=== PATIENT | female | born 1965 | race Caucasian/White ===

== ENCOUNTER 2016-11-01 11:24 | Emergency (ER) | payer MEDICARE, MEDICAID ==
--- NOTE | 2016-11-01 12:02 | ER Document Report ---
ED Medical Screen (RME) - General Chief Complaint: Eye Pain Stated Complaint: VISION PROBLEM Mode of Arrival: Ambulatory Information source: Patient Notes: 51-year-old female presents to the emergency department complaining of right- sided headache and associated left lateral decreased vision over the last 2 days. Denies fever, nausea or vomiting, or extremity weakness. I have greeted and performed a rapid initial assessment of this patient. A comprehensive ED assessment and evaluation of the patient, analysis of test results and completion of the medical decision making process will be conducted by additional ED providers. TRAVEL OUTSIDE OF THE [place] IN LAST 30 DAYS: No - Related Data Allergies/Adverse Reactions: exenatide [From Byetta] Allergy (Severe, Verified 11/01/16 11:59) swelling NSAIDS (Non-Steroidal Anti-Inflamma Allergy (Severe, Verified 11/01/16 11:59) Anaphylaxis Past Medical History - Social History Frequency of alcohol use: None Drug Abuse: None - Past Medical History Cardiac Medical History: Reports: Hx Hypercholesterolemia Denies: Hx Coronary Artery Disease, Hx Heart Attack, Hx Hypertension Pulmonary Medical History: Reports: Hx Bronchitis, Hx COPD, Hx Pneumonia Denies: Hx Asthma, Hx Tuberculosis Neurological Medical History: Denies: Hx Cerebrovascular Accident, Hx Seizures Endocrine Medical History: Reports: Hx Diabetes Mellitus Type 2 - IDDM Renal/ Medical History: Denies: Hx Peritoneal Dialysis Malignancy Medical History: Reports: Hx Cervical Cancer GI Medical History: Reports: Hx Gastroesophageal Reflux Disease Musculoskeltal Medical History: Denies Hx Arthritis Psychiatric Medical History: Reports: Hx Anxiety, Hx Depression, Hx Post Traumatic Stress Disorder Past Surgical History: Reports: Hx Section - x2, Hx Hysterectomy, Hx Orthopedic Surgery - BL elbow. 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
--- NOTE | 2016-11-01 12:29 | ER Document Report ---
ED Headache - General Chief Complaint: Eye Pain Stated Complaint: VISION PROBLEM Mode of Arrival: Ambulatory Information source: Patient TRAVEL OUTSIDE OF THE [place] IN LAST 30 DAYS: No - HPI Patient complains to provider of: Headache Patient reports: No: Frequent migraines, Hx chronic headaches, Occasional migraines, Prior TBI Onset: Other - 2 DAYS Onset was: Gradual Timing: Still present Quality of pain: Dull Severity: Moderate Context: denies: CO exposure, Head injury, Insect bite, Meningitis exposure, Tick bite Preceding symptoms: Other - VISUAL SYMPTOMS BEGAN AFTER ONSET OF HEADACHE. denies: Typical of prior aura(s) Associated symptoms: Double/blurred vision - BLURRED LEFT TEMPORAL FIELD, Nausea /vomiting. denies: Confusion, Fever, Neck pain Exacerbated by: Light Similar symptoms previously: No Recently seen / treated by doctor: No - Related Data Allergies/Adverse Reactions: exenatide [From Byetta] Allergy (Severe, Verified 11/01/16 11:59) swelling NSAIDS (Non-Steroidal Anti-Inflamma Allergy (Severe, Verified 11/01/16 11:59) Anaphylaxis Past Medical History - General Information source: Patient - Social History Smoking Status: Current Every Day Smoker Smoking Education Provided: No Frequency of alcohol use: None Drug Abuse: None Family History: DM, Hypertension Patient has suicidal ideation: No Patient has homicidal ideation: No - Past Medical History Cardiac Medical History: Reports: Hx Hypercholesterolemia Denies: Hx Coronary Artery Disease, Hx Heart Attack, Hx Hypertension Pulmonary Medical History: Reports: Hx Bronchitis, Hx COPD, Hx Pneumonia Denies: Hx Asthma, Hx Tuberculosis Neurological Medical History: Denies: Hx Cerebrovascular Accident, Hx Migraine, Hx Seizures Endocrine Medical History: Reports: Hx Diabetes Mellitus Type 2 - IDDM Renal/ Medical History: Denies: Hx Peritoneal Dialysis Malignancy Medical History: Reports: Hx Cervical Cancer GI Medical History: Reports: Hx Gastroesophageal Reflux Disease Musculoskeltal Medical History: Denies Hx Arthritis Psychiatric Medical History: Reports: Hx Anxiety, Hx Depression, Hx Post Traumatic Stress Disorder Past Surgical History: Reports: Hx Section - x2, Hx Hysterectomy, Hx Orthopedic Surgery - BL elbow. - Immunizations Immunizations up to date: No Hx Diphtheria, Pertussis, Tetanus Vaccination: No Hx Pneumococcal Vaccination: 10/11/10 Review of Systems - Review of Systems Constitutional: No symptoms reported EENT: See HPI Cardiovascular: No symptoms reported Respiratory: No symptoms reported Gastrointestinal: See HPI Genitourinary: No symptoms reported Female Genitourinary: No symptoms reported Musculoskeletal: No symptoms reported Skin: No symptoms reported Neurological/Psychological: See HPI Physical Exam - Vital signs Vitals: Temp Pulse Resp BP Pulse Ox 98.5 F 89 17 119/86 H 96 11/01/16 11:53 11/01/16 11:53 11/01/16 11:53 11/01/16 11:53 11/01/16 11:53 Interpretation: Normal. No: Tachycardic, Tachypneic, Febrile - General General appearance: Appears well, Alert In distress: None - HEENT Head: Normocephalic Eyes: Normal Conjunctiva: Normal Cornea: Normal Extraocular movements intact: Yes Eyelashes: Normal Pupils: PERRL Visual acuity- Right eye: 20/50 Visual acuity- Left eye: 20/100 Visual acuity- Both eyes: 20/30 Corrective lenses worn: No Fundascopic: Normal. No: Retinal detachment, Retinal hemorrhage Nerve palsy: No Visual phillips normal: Yes Ears: Normal Nasal: Normal Mouth/Lips: Normal Mucous membranes: Normal Pharynx: Normal Neck: Normal - Respiratory Respiratory status: No respiratory distress - Cardiovascular Rhythm: Regular Heart sounds: Normal auscultation Murmur: No - Extremities General upper extremity: Normal inspection General lower extremity: Normal inspection - Neurological Neuro grossly intact: Yes Cognition: Normal Orientation: AAOx4 Cranial nerves: Other - SEE HPI Cerebellar coordination: Normal Sensory: Normal - Psychological Associated symptoms: Normal affect, Normal mood - Skin Skin Temperature: Warm Skin Moisture: Dry Skin Color: Normal Skin Turgor: Elastic Course - Re-evaluation Re-evalutation: 11/01/16 14:06 Patient reports headache much improved. Results of CT scan discussed. Will proceed with contrasted CT scan. - Vital Signs Vital signs: Temp Pulse Resp BP Pulse Ox 98.5 F 75 18 122/75 97 11/01/16 11:53 11/01/16 18:00 11/01/16 18:00 11/01/16 18:00 11/01/16 18:00 - Laboratory Result Diagrams: 11/01/16 13:08 11/01/16 13:08 Laboratory results interpreted by me: 11/01/16 13:08 Glucose 305 H - EKG Interpretation by Ct EKG shows normal: Sinus rhythm, Brohard, Intervals, QRS Complexes - SMALL INF. Q WAVES, INSIGNIFICANT, ST-T Waves Rate: Normal Rhythm: NSR - Consults DR. AGUIRRE Time consulted: 18:20 Reason for consultation: 11/01/16 18:[address] WHALEY ([facility]) Consulted provider: will see as inpatient Discharge - Discharge Clinical Impression: CVA (cerebrovascular accident) Qualifiers: CVA mechanism: unspecified Qualified Code(s): I63.9 - Cerebral infarction, unspecified Condition: Good Disposition: ADMITTED INPATIENT Admitting Provider: Yasir Unit Admitted: [facility] Referrals: JUAN WHALEY MD [Primary Care Provider] - Follow up as needed
[2016-11-01] MEDS ORDERED: NORMAL SALINE 1000 ML 1,000 ML IV ONE (12:40)
[2016-11-01] MEDS ORDERED: METOCLOPRAMIDE HCL INJ/PF 10 MG/2 ML SDV IV ONE (12:40)
[2016-11-01] MEDS ORDERED: DIPHENHYDRAMINE HCL 50 MG/ML VIAL IV ONE (12:40)
[2016-11-01 13:23] LABS: ABSOLUTE EOSINOPHILS # (AUTO) 0.2 10^3/uL (0.0-0.6); ABSOLUTE LYMPHOCYTES (AUTO) 1.8 10^3/uL (0.5-4.7); ABSOLUTE MONOCYTES (AUTO) 0.5 10^3/uL (0.1-1.4); ABSOLUTE NEUT (AUTO) 6.8 10^3/uL (1.7-8.2); BASOPHILS % (AUTO) 0.2 % (0-2); EOSINOPHILS % (AUTO) 2.3 % (0-6); HEMOGLOBIN 14.7 g/dL (12.0-15.5); HGB HCT DIFFERENCE 1.1; LYMPHOCYTES % (AUTO) 19.1 % (13-45); MEAN CORPUSCULAR HEMOGLOBIN 28.8 pg (27.0-33.4); MEAN CORPUSCULAR HGB CONC 34.1 g/dL (32.0-36.0); MEAN CORPUSCULAR VOLUME 84 fl (80-97); MONOCYTES % (AUTO) 5.7 % (3-13); SEGMENTED NEUTROPHILS % (AUTO) 72.7 % (42-78); WHITE BLOOD COUNT 9.4 10^3/uL (4.0-10.5)
[2016-11-01 13:49] LABS: ALANINE AMINOTRANSFERASE 25 U/L (9-52); ALBUMIN 3.9 g/dL (3.5-5.0); ALKALINE PHOSPHATASE 106 U/L (38-126); ANION GAP 13 (5-19); ASPARTATE AMINO TRANSFERASE 21 U/L (14-36); BILIRUBIN,TOTAL 1.1 mg/dL (0.2-1.3); BLOOD UREA NITROGEN 14 mg/dL (7-20); CALCIUM 9.7 mg/dL (8.4-10.2); CARBON DIOXIDE 23 mmol/L (22-30); CHLORIDE 102 mmol/L (98-107); GLUCOSE 305 mg/dL (75-110); POTASSIUM 4.2 mmol/L (3.6-5.0); SODIUM 137.9 mmol/L (137-145); TOTAL PROTEIN 7.2 g/dL (6.3-8.2)
[2016-11-01] MEDS ORDERED: HYDROCODONE/ACETAMINOPHEN 5-325 MG TABLET PO ONE (15:20)
[2016-11-01] MEDS ORDERED: ASPIRIN 81 MG TABLET, CHEWABLE PO ONE (19:29)
[2016-11-01 19:42] VITALS: BP 119/78
--- NOTE | 2016-11-01 20:35 | EKG REPORT ---
SEVERITY:- BORDERLINE ECG - SINUS RHYTHM BORDERLINE INFERIOR Q WAVES : Confirmed by: Jacob Shine MD 01-Nov-2016 20:34:21
== END 2016-11-01 19:50 | disposition left against medical advice (07) ==
LOC: ER 11:24 → UNDOADMIN 19:07 → EH 19:07 → UNDODISIN 19:50 → ER 19:50
DX: I63.9 Cerebral infarction, unspecified (principal); H53.8 Other visual disturbances; R11.2 Nausea with vomiting, unspecified; E11.9 Type 2 diabetes mellitus without complications; F17.200 Nicotine dependence, unspecified, uncomplicated; Z53.20 Procedure and treatment not carried out because of patient's decision for unspecified reasons; Z87.892 Personal history of anaphylaxis; Z88.8 Allergy status to other drugs, medicaments and biological substances; J44.9 Chronic obstructive pulmonary disease, unspecified; Z85.41 Personal history of malignant neoplasm of cervix uteri
CPT/HCPCS: 93005; 99285; 96361; 96374; 96375; 36415; 85025; 80053; 70553; 70450; 70460; 93010; A9577; A9270 ×2; J1200; J2765; J7030

== ENCOUNTER 2016-11-02 10:10 | Inpatient (IN) | payer MEDICARE, MEDICAID ==
--- NOTE | 2016-11-02 10:21 | ER Document Report ---
ED Medical Screen (RME) - General Chief Complaint: Chest Pain Stated Complaint: CHEST PRESSURE Time seen by provider: 10:19 Mode of Arrival: Ambulatory Information source: Patient Notes: 51-year-old female presents to ED for chest pain chest pain started this morning while laying in and her bed. She was seen yesterday for a headache with a positive CT for possible brain bleed she decided she did not want to stay 1 and to go home she states she got everything situated at home so that if she needs to be admitted she can stay this time. States headache is still just like it was. I have greeted and performed a rapid initial assessment of this patient. A comprehensive ED assessment and evaluation of the patient, analysis of test results and completion of medical decision making process will be conducted by an additional ED providers. TRAVEL OUTSIDE OF THE [place] IN LAST 30 DAYS: No - Related Data Allergies/Adverse Reactions: exenatide [From Byetta] Allergy (Severe, Verified 11/01/16 11:59) swelling NSAIDS (Non-Steroidal Anti-Inflamma Allergy (Severe, Verified 11/01/16 11:59) Anaphylaxis Past Medical History - Past Medical History Cardiac Medical History: Reports: Hx Hypercholesterolemia Denies: Hx Coronary Artery Disease, Hx Heart Attack, Hx Hypertension Pulmonary Medical History: Reports: Hx Bronchitis, Hx COPD, Hx Pneumonia Denies: Hx Asthma, Hx Tuberculosis Neurological Medical History: Denies: Hx Cerebrovascular Accident, Hx Migraine, Hx Seizures Endocrine Medical History: Reports: Hx Diabetes Mellitus Type 2 - IDDM Renal/ Medical History: Denies: Hx Peritoneal Dialysis Malignancy Medical History: Reports: Hx Cervical Cancer GI Medical History: Reports: Hx Gastroesophageal Reflux Disease Musculoskeltal Medical History: Denies Hx Arthritis Psychiatric Medical History: Reports: Hx Anxiety, Hx Depression, Hx Post Traumatic Stress Disorder Past Surgical History: Reports: Hx Section - x2, Hx Hysterectomy, Hx Orthopedic Surgery - BL elbow. - Immunizations Immunizations up to date: No Hx Diphtheria, Pertussis, Tetanus Vaccination: No
--- NOTE | 2016-11-02 11:35 | ER Document Report ---
ED General - General Chief Complaint: Chest Pain Stated Complaint: CHEST PRESSURE Mode of Arrival: Ambulatory Information source: Patient Notes: 51 yr old female who was diagnosed wit hCVA yesterday , left AMA becuase headache was improving presents after her pcp called her ot come back. pt denies any neuro deficits except for forgetfulness. TRAVEL OUTSIDE OF THE [place] IN LAST 30 DAYS: No - HPI Onset: Yesterday Onset/Duration: Sudden Quality of pain: Pressure Severity: Moderate Pain Level: 2 Associated symptoms: Headache Exacerbated by: Denies Relieved by: Denies Similar symptoms previously: Yes Recently seen / treated by doctor: Yes - Related Data Allergies/Adverse Reactions: exenatide [From Byetta] Allergy (Severe, Verified 11/01/16 11:59) swelling NSAIDS (Non-Steroidal Anti-Inflamma Allergy (Severe, Verified 11/01/16 11:59) Anaphylaxis Past Medical History - General Information source: Patient - Social History Smoking Status: Unknown if Ever Smoked Cigarette use (# per day): No Chew tobacco use (# tins/day): No Smoking Education Provided: No Family History: DM, Hypertension Patient has suicidal ideation: No Patient has homicidal ideation: No - Past Medical History Cardiac Medical History: Reports: Hx Hypercholesterolemia Denies: Hx Coronary Artery Disease, Hx Heart Attack, Hx Hypertension Pulmonary Medical History: Reports: Hx Bronchitis, Hx COPD, Hx Pneumonia Denies: Hx Asthma, Hx Tuberculosis Neurological Medical History: Denies: Hx Cerebrovascular Accident, Hx Migraine, Hx Seizures Endocrine Medical History: Reports: Hx Diabetes Mellitus Type 2 - IDDM Renal/ Medical History: Denies: Hx Peritoneal Dialysis Malignancy Medical History: Reports: Hx Cervical Cancer GI Medical History: Reports: Hx Gastroesophageal Reflux Disease Musculoskeltal Medical History: Denies Hx Arthritis Psychiatric Medical History: Reports: Hx Anxiety, Hx Depression, Hx Post Traumatic Stress Disorder Past Surgical History: Reports: Hx Section - x2, Hx Hysterectomy, Hx Orthopedic Surgery - BL elbow. - Immunizations Immunizations up to date: No Hx Diphtheria, Pertussis, Tetanus Vaccination: No Hx Pneumococcal Vaccination: 10/11/10 Review of Systems - Review of Systems Notes: REVIEW OF SYSTEMS: CONSTITUTIONAL : Denies fever, chills, or sweats. Denies recent illness. EENT: Denies eye, ear, throat, or mouth pain or symptoms. Denies nasal or sinus congestion or discharge. Denies throat, tongue, or mouth swelling or difficulty swallowing. CARDIOVASCULAR: Denies chest pain. Denies palpitations or racing or irregular heart beat. Denies ankle edema. RESPIRATORY: Denies cough, cold, or chest congestion. Denies shortness of breath, difficulty breathing, or wheezing. GASTROINTESTINAL: Denies abdominal pain or distention. Denies nausea, vomiting , or diarrhea. Denies blood in vomitus, stools, or per rectum. Denies black, tarry stools. Denies constipation. GENITOURINARY: Denies difficulty urinating, painful urination, burning, frequency, blood in urine, or discharge. FEMALE GENITOURINARY: Denies vaginal bleeding, heavy or abnormal periods, irregular periods. Denies vaginal discharge or odor. MUSCULOSKELETAL: Denies back or neck pain or stiffness. Denies joint pain or swelling. SKIN: Denies rash, lesions or sores. HEMATOLOGIC : Denies easy bruising or bleeding. LYMPHATIC: Denies swollen, enlarged glands. NEUROLOGICAL: Admits to headache and forgetfulness PSYCHIATRIC: Denies anxiety or stress. Denies depression, suicidal ideation, or homicidal ideation. ALL OTHER SYSTEMS REVIEWED AND NEGATIVE. Dictation was performed using [employer] voice recognition software PHYSICAL EXAMINATION: GENERAL: Well-appearing, well-nourished and in no acute distress. HEAD: Atraumatic, normocephalic. EYES: Pupils equal round and reactive to light, extraocular movements intact, conjunctiva are normal. ENT: Nares patent, oropharynx clear without exudates. Moist mucous membranes. NECK: Normal range of motion, supple without lymphadenopathy LUNGS: Breath sounds clear to auscultation bilaterally and equal. No wheezes rales or rhonchi. HEART: Regular rate and rhythm without murmurs ABDOMEN: Soft, nontender, nondistended abdomen. No guarding, no rebound. No masses appreciated. Female : deferred Musculoskeletal: Normal range of motion, no pitting or edema. No cyanosis. NEUROLOGICAL: Cranial nerves grossly intact. Normal speech, normal gait. Normal sensory, motor exams NIH score 0 PSYCH: Normal mood, normal affect. SKIN: Warm, Dry, normal turgor, no rashes or lesions noted. Physical Exam - Vital signs Vitals: Temp Pulse Resp BP Pulse Ox 98.8 F 81 18 147/88 H 97 11/02/16 10:19 11/02/16 10:19 11/02/16 10:19 11/02/16 10:19 11/02/16 10:19 Course - Re-evaluation Re-evalutation: 11/02/16 11:33 Pt not candidate for TPA as cva is over [address] Cooley paged for admission, appears pt left [facility] yesterday with confirmed cva. 11/02/16 12:25 CT of the head notes no acute changes, thyroid admit to Dr. Dooley service for further evaluation care - Vital Signs Vital signs: Temp Pulse Resp BP Pulse Ox 98.8 F 81 18 147/88 H 97 11/02/16 10:19 11/02/16 10:19 11/02/16 11:42 11/02/16 10:19 11/02/16 11:40 - Diagnostic Test Radiology reviewed: Image reviewed, Reports reviewed Discharge - Discharge Clinical Impression: Forgetfulness CVA (cerebrovascular accident) Qualifiers: CVA mechanism: occlusion Precerebral and cerebral artery: unspecified precerebral artery Qualified Code(s): I63.20 - Cerebral infarction due to unspecified occlusion or stenosis of unspecified precerebral arteries Condition: Stable Disposition: ADMITTED OBSERVATION Admitting Provider: Yasir Unit Admitted: Telemetry
[2016-11-02] MEDS ORDERED: ASPIRIN 325 MG TABLET PO ONE (12:46)
[2016-11-02 13:10] LABS: ABSOLUTE BASOPHILS # (AUTO) 0.1 10^3/uL (0.0-0.2); ABSOLUTE EOSINOPHILS # (AUTO) 0.2 10^3/uL (0.0-0.6); ABSOLUTE LYMPHOCYTES (AUTO) 1.7 10^3/uL (0.5-4.7); ABSOLUTE MONOCYTES (AUTO) 0.4 10^3/uL (0.1-1.4); ABSOLUTE NEUT (AUTO) 5.9 10^3/uL (1.7-8.2); BASOPHILS % (AUTO) 0.7 % (0-2); EOSINOPHILS % (AUTO) 2.5 % (0-6); HEMATOCRIT 40.4 % (36.0-47.0); HEMOGLOBIN 13.8 g/dL (12.0-15.5); MEAN CORPUSCULAR HEMOGLOBIN 28.8 pg (27.0-33.4); MEAN CORPUSCULAR HGB CONC 34.1 g/dL (32.0-36.0); MEAN CORPUSCULAR VOLUME 84 fl (80-97); MONOCYTES % (AUTO) 5.2 % (3-13); RED BLOOD COUNT 4.78 10^6/uL (3.72-5.28); SEGMENTED NEUTROPHILS % (AUTO) 71.6 % (42-78); WHITE BLOOD COUNT 8.2 10^3/uL (4.0-10.5)
[2016-11-02 13:33] LABS: ALANINE AMINOTRANSFERASE 28 U/L (9-52); ALKALINE PHOSPHATASE 94 U/L (38-126); ANION GAP 11 (5-19); ASPARTATE AMINO TRANSFERASE 18 U/L (14-36); BILIRUBIN,TOTAL 0.8 mg/dL (0.2-1.3); BLOOD UREA NITROGEN 11 mg/dL (7-20); CALCIUM 9.7 mg/dL (8.4-10.2); CARBON DIOXIDE 25 mmol/L (22-30); CHLORIDE 103 mmol/L (98-107); CREATINE KINASE 43 U/L (30-135); CREATININE RESULT 0.83 mg/dL (0.52-1.25); GLUCOSE 263 mg/dL (75-110); MAGNESIUM 1.6 mg/dL (1.6-2.3); POTASSIUM 3.9 mmol/L (3.6-5.0); SODIUM 138.8 mmol/L (137-145); TOTAL PROTEIN 6.6 g/dL (6.3-8.2)
[2016-11-02 13:43] LABS: CREATINE KINASE MB 0.28 ng/mL (<4.55)
[2016-11-02 13:45] LABS: TROPONIN I < 0.012 ng/mL
--- NOTE | 2016-11-02 15:50 | EKG REPORT ---
SEVERITY:- BORDERLINE ECG - SINUS RHYTHM BORDERLINE INFERIOR Q WAVES BORDERLINE T ABNORMALITIES, INFERIOR LEADS : Confirmed by: Glenn Garnica 02-Nov-2016 15:50:05
[2016-11-02] MEDS ORDERED: LORAZEPAM INJ 2 MG/1 ML VIAL IV ONE (16:23)
[2016-11-02] MEDS ORDERED: DEXTROSE 40% GEL 15 GM TUBE PO PRN ×2 (17:18)
[2016-11-02] MEDS ORDERED: DEXTROSE 50%-WATER 25 GM/50 ML DISP.SYRIN IV PRN ×2 (17:18)
[2016-11-02] MEDS ORDERED: GLUCAGON,HUMAN RECOMB 1 MG INJ IM PRN (17:18)
--- NOTE | 2016-11-02 18:10 | PDOC H&P ---
History of Present Illness Admission Date/PCP: 11/02/16 12:37 JUAN JUDD Patient complains of: headache, chest pressure pain History of Present Illness: NISSA TUTTLE is a 51 year old female who presented to the ED after efforts to contact her at home following her presentation to the ED on 11/01/2016 with complaint of headache and her evaluation with head CT scan and MRI suggested right occipital infarct with surrounding edema. Patient signed out against medical advised despite explanation of need for hospitalization. She claimed that her headache did improved before leaving the ED following her initial visit that was about 24 hours after onset of her headache. In view of above I was able to contact patient and after extensive discussion did agreed to come to our ED earlier today due to persistent chest pressure like pain and headache. She admitted to nausea but no vomiting on 11/01/2016. She denied any focal weakness. There are episodes of dizziness and forgetfulness. She denied any fever or chills. Her repeat head CT scan revealed stable right occipital infarct without mention of associated hemorrhage or worsening edema. Past Medical History Cardiac Medical History: Reports: Hyperlipidema Denies: Coronary Artery Disease, Myocardial Infarction, Hypertension Pulmonary Medical History: Reports: Bronchitis, Chronic Obstructive Pulmonary Disease (COPD), Pneumonia Denies: Asthma, Tuberculosis Neurological Medical History: Denies: Migraine, Seizures Endocrine Medical History: Reports: Diabetes Mellitus Type 2 - IDDM Malignancy Medical History: Reports: Cervical Cancer GI Medical History: Reports: Gastroesophageal Reflux Disease Musculoskeltal Medical History: Denies: Arthritis Psychiatric Medical History: Reports: Depression, Post Traumatic Stress Disorder Hematology: Denies: Anemia Past Surgical History Past Surgical History: Reports: Section - x2, Hysterectomy, Orthopedic Surgery - BL elbow. Social History Smoking Status: Current Every Day Smoker Cigarettes Packs Per Day: 6 Number of Years Smokin Last Time Smoked: about 1 week ago Frequency of Alcohol Use: None Hx Recreational Drug Use: No Drugs: None Hx Prescription Drug Abuse: No - Advance Directive Resuscitation Status: Full Code Family History Family History: DM, Hypertension Parental Family History Reviewed: Yes Children Family History Reviewed: Yes Sibling(s) Family History Reviewed.: Yes Medication/Allergy Home Medications: Albuterol Sulfate [Ventolin HFA MDI 18 GM] 2 puff IH Q4HP PRN 11/02/16 Alprazolam [Xanax] 1 mg PO Q8 11/02/16 Atorvastatin Calcium [Lipitor 20 mg Tablet] 20 mg PO QHS 11/02/16 Brexpiprazole [Rexulti] 3 mg PO DAILY 11/02/16 Citalopram Hydrobromide [Celexa 40 mg Tablet] 40 mg PO BID 11/02/16 Ibuprofen [Motrin 800 mg Tablet] 800 mg PO BIDP PRN 11/02/16 Insulin Aspart [Novolog Flexpen] 0 units SQ ASDIR PRN 11/02/16 [place]-3 Acid Ethyl Esters [Lovaza 1 gm Capsule] 2 cap PO BID 11/02/16 Trazodone HCl [Desyrel] 200 mg PO HSP PRN 11/02/16 Zolpidem Tartrate [Ambien] 10 mg PO HSP PRN 11/02/16 Allergies/Adverse Reactions: exenatide [From By[place]] Allergy (Severe, Verified 11/01/16 11:59) swelling NSAIDS (Non-Steroidal Anti-Inflamma Allergy (Severe, Verified 11/01/16 11:59) Anaphylaxis Review of Systems Constitutional: ABSENT: chills, fever(s), headache(s), weight gain, weight loss Eyes: ABSENT: visual disturbances Ears: ABSENT: hearing changes Nose, Mouth, and Throat: PRESENT: headache(s). ABSENT: as per HPI, mouth pain, sore throat, vertigo, other Cardiovascular: PRESENT: chest pain - mostly pressure like. ABSENT: as per HPI , dyspnea on exertion, edema, orthropnea, palpitations, other Gastrointestinal: PRESENT: nausea. ABSENT: as per HPI, abdominal pain, bloating , coffee ground emesis, constipation, diarrhea, dysphagia, heartburn, hematemesis, hematochezia, melena, vomiting, other Musculoskeletal: ABSENT: as per HPI, back pain, deformity, joint swelling, muscle weakness, other Integumentary: ABSENT: as per HPI, diaphoresis, erythema, lesions, pruritus, rash, wounds, other Neurological: PRESENT: dizziness, memory loss. ABSENT: as per HPI, abnormal gait, abnormal movements, abnormal speech, confusion, convulsions, focal weakness, frequent falls, lack of coordination, numbness, paresthesias, restless legs, syncope, tingling, tremor(s), vertigo, weakness, other Psychiatric: ABSENT: anxiety, depression, homidical ideation, suicidal ideation Endocrine: ABSENT: as per HPI, cold intolerance, flushing, heat intolerance, menstrual abnormalities, polydipsia, polyphagia, polyuria, other Hematologic/Lymphatic: ABSENT: as per HPI, easy bleeding, easy bruising, lymphadenopathy, other Allergic/Immunologic: ABSENT: as per HPI, seasonal rhinorrhea, other Physical Exam Vital Signs: Temp Pulse Resp BP Pulse Ox 98.9 F 68 18 123/91 H 98 11/02/16 17:01 11/02/16 17:30 11/02/16 17:30 11/02/16 17:30 11/02/16 17:30 General appearance: PRESENT: no acute distress, cooperative, obese Head exam: PRESENT: atraumatic, normocephalic Eye exam: PRESENT: conjunctiva pink, EOMI, PERRLA. ABSENT: scleral icterus Ear exam: PRESENT: normal external ear exam Mouth exam: PRESENT: moist, tongue midline Throat exam: ABSENT: post pharyngeal erythema, tonsillar erythema, tonsillar exudate, tonsillogmegaly, other Neck exam: ABSENT: carotid bruit, full ROM, JVD, lymphadenopathy, meningismus, tenderness, thyromegaly, tracheal deviation, tracheostomy, other Respiratory exam: ABSENT: accessory muscle use, chest wall tenderness, clear to auscultation bri, crackles, decreased breath sounds, prolonged expiratory phas, rales, retraction, rhonchi, stridor, symmetrical, tachypnea, unlabored, wheezes , other Cardiovascular exam: PRESENT: RRR. ABSENT: diastolic murmur, rubs, systolic murmur GI/Abdominal exam: PRESENT: normal bowel sounds, soft. ABSENT: distended, guarding, mass, organolmegaly, rebound, tenderness Extremities exam: PRESENT: full ROM Musculoskeletal exam: PRESENT: ambulatory, full ROM, normal inspection Neurological exam: PRESENT: alert, awake, oriented to person, oriented to place , oriented to time, oriented to situation, CN II-XII grossly intact. ABSENT: motor sensory deficit Psychiatric exam: PRESENT: appropriate affect, normal mood. ABSENT: homicidal ideation, suicidal ideation Skin exam: PRESENT: dry, intact, warm. ABSENT: cyanosis, rash Results Laboratory Results: 11/02/16 12:50 11/02/16 12:50 11/02/16 11/02/16 12:50 12:50 WBC 8.2 RBC 4.78 Hgb 13.8 Hct 40.4 MCV 84 MCH 28.8 MCHC 34.1 RDW 14.0 Plt Count 208 Seg Neutrophils % 71.6 Lymphocytes % 20.0 Monocytes % 5.2 Eosinophils % 2.5 Basophils % 0.7 Absolute Neutrophils 5.9 Absolute Lymphocytes 1.7 Absolute Monocytes 0.4 Absolute Eosinophils 0.2 Absolute Basophils 0.1 Sodium 138.8 Potassium 3.9 Chloride 103 Carbon Dioxide 25 Anion Gap 11 BUN 11 Creatinine 0.83 Est GFR ( Amer) > 60 Est GFR (Non-Af Amer) > 60 Glucose 263 H Calcium 9.7 Magnesium 1.6 Total Bilirubin 0.8 AST 18 ALT 28 Alkaline Phosphatase 94 Total Protein 6.6 Albumin 4.0 11/02/16 11/02/16 12:50 12:50 Creatine Kinase 43 CK-MB (CK-2) 0.28 Troponin I < 0.012 Impressions: Chest X-Ray 11/02/16 10:23 IMPRESSION: NO SIGNIFICANT RADIOGRAPHIC FINDING IN THE CHEST. Head CT 11/02/16 11:35 IMPRESSION: Stable appearance. Assessment & Plan - Diagnosis (1) CVA (cerebrovascular accident) Qualifiers: CVA mechanism: occlusion Precerebral and cerebral artery: unspecified precerebral artery Qualified Code(s): I63.20 - Cerebral infarction due to unspecified occlusion or stenosis of unspecified precerebral arteries Is this a current diagnosis for this admission?: YesPlan: Patient is outside of thrombotic therapy period. She will receive Aspirin 325 mg x 1 dose with intent to maintain same on daily bases. Continue MENDS for possible worsening of neurological symptoms. (2) Type 2 diabetes mellitus with hyperglycemia, with long-term current use of insulin Is this a current diagnosis for this admission?: YesPlan: Continue on pre-admission medication management. (3) HLD (hyperlipidemia) Qualifiers: Hyperlipidemia type: pure hypercholesterolemia Qualified Code(s): E78.00 - Pure hypercholesterolemia, unspecified; E78.0 - Pure hypercholesterolemia Is this a current diagnosis for this admission?: YesPlan: Continue on pre-admission medication management. (4) GERD (gastroesophageal reflux disease) Qualifiers: Esophagitis presence: without esophagitis Qualified Code(s): K21.9 - Gastro-esophageal reflux disease without esophagitis Is this a current diagnosis for this admission?: YesPlan: Continue on pre-admission medication management. (5) Depression Qualifiers: Major depression recurrence: recurrent Active/Remission status: currently active Major depression episode severity: moderate Is this a current diagnosis for this admission?: YesPlan: Continue on pre-admission medication management. (6) PTSD (post-traumatic stress disorder) Is this a current diagnosis for this admission?: YesPlan: Continue on pre-admission medication management. (7) COPD (chronic obstructive pulmonary disease) Qualifiers: COPD type: emphysema Emphysema type: unspecified Qualified Code( s): J43.9 - Emphysema, unspecified Is this a current diagnosis for this admission?: YesPlan: Continue on pre-admission medication management. - Time Time Spent: Greater than 70 Minutes - about 50% of my time was spent in counseling and discussion of medial condition. Smoking Cessation Education: 3 to 10 minutes Medications reviewed and adjusted accordingly: Yes Anticipated discharge: Home Within: Other - Inpatient Certification Medical Necessity: Need Close Monitoring Due to Risk of Patient Decompensation, Need For Continuous Telemetry Monitoring, Risk of Complication if Not Cared For in Hospital Post Hospital Care: D/C Senior Marketing Engineer Documentation - Plan Summary Plan Summary: see admitting physician orders.
[2016-11-02] MEDS ORDERED: ALBUTEROL SULFATE HFA (90 MCG/PUFF) 8 GM MDI (1 MDI/ER DISP) IH PRN (18:19)
[2016-11-02] MEDS ORDERED: (PENDING PHARMACY ID) (Trazodone Hcl [Desyrel] 200 MG) PO PRN (18:19)
[2016-11-02] MEDS ORDERED: TRAZODONE HCL 50 MG TABLET PO PRN (18:32)
[2016-11-02] MEDS: NORMAL SALINE 1000 ML 1,000 ML IV PRN (18:37)
[2016-11-02] MEDS ORDERED: ALBUTEROL SULFATE HFA (90 MCG/PUFF) 200 PUFF/8.5 GM MDI IH PRN (18:51)
[2016-11-02] MEDS ORDERED: ENOXAPARIN SODIUM INJ 40 MG/0.4 ML DISP.SYRIN SUBCUT ONE (19:00)
[2016-11-02] MEDS ORDERED: OMEGA-3 ACID ETHYL ESTERS 1 GM CAPSULE PO ONE (20:15)
[2016-11-02] MEDS ORDERED: ATORVASTATIN CALCIUM 20 MG TABLET PO SCH (22:00)
[2016-11-02] MEDS: CITALOPRAM HYDROBROMIDE 20 MG TABLET PO SCH (23:39)
[2016-11-03] MEDS: INSULIN LISPRO 100 UNIT/ML 3 ML VIAL SUBCUT PRN ×5 (00:01→23:34)
[2016-11-03] MEDS ORDERED: OMEGA-3 ACID ETHYL ESTERS 1 GM CAPSULE PO ONE (00:15)
[2016-11-03 04:45] LABS: ABSOLUTE BASOPHILS # (AUTO) 0.1 10^3/uL (0.0-0.2); ABSOLUTE EOSINOPHILS # (AUTO) 0.3 10^3/uL (0.0-0.6); ABSOLUTE LYMPHOCYTES (AUTO) 2.2 10^3/uL (0.5-4.7); ABSOLUTE MONOCYTES (AUTO) 0.5 10^3/uL (0.1-1.4); ABSOLUTE NEUT (AUTO) 5.9 10^3/uL (1.7-8.2); BASOPHILS % (AUTO) 1.1 % (0-2); EOSINOPHILS % (AUTO) 2.9 % (0-6); HEMATOCRIT 39.2 % (36.0-47.0); HEMOGLOBIN 13.6 g/dL (12.0-15.5); HGB HCT DIFFERENCE 1.6; LYMPHOCYTES % (AUTO) 24.4 % (13-45); MEAN CORPUSCULAR HEMOGLOBIN 29.2 pg (27.0-33.4); MEAN CORPUSCULAR HGB CONC 34.7 g/dL (32.0-36.0); MEAN CORPUSCULAR VOLUME 84 fl (80-97); MONOCYTES % (AUTO) 5.6 % (3-13); RED BLOOD COUNT 4.66 10^6/uL (3.72-5.28); RED CELL DISTRIBUTION WIDTH 13.9 % (11.5-14.0); WHITE BLOOD COUNT 8.9 10^3/uL (4.0-10.5)
[2016-11-03 05:01] LABS: ALANINE AMINOTRANSFERASE 30 U/L (9-52); ALBUMIN 3.6 g/dL (3.5-5.0); ALKALINE PHOSPHATASE 84 U/L (38-126); ANION GAP 10 (5-19); ASPARTATE AMINO TRANSFERASE 19 U/L (14-36); BILIRUBIN,TOTAL 0.7 mg/dL (0.2-1.3); BLOOD UREA NITROGEN 12 mg/dL (7-20); CALCIUM 9.4 mg/dL (8.4-10.2); CARBON DIOXIDE 25 mmol/L (22-30); CHLORIDE 105 mmol/L (98-107); CHOLESTEROL 236.88 mg/dL (0-200); CREATININE RESULT 0.92 mg/dL (0.52-1.25); Direct HDL 20 mg/dL (>40); GLUCOSE 207 mg/dL (75-110); POTASSIUM 3.6 mmol/L (3.6-5.0); SODIUM 140.2 mmol/L (137-145)
[2016-11-03 05:17] LABS: DIRECT LDL < 30 mg/dL (<100); TRIGLYCERIDES 1270 mg/dL (<150)
[2016-11-03] MEDS: LANSOPRAZOLE 30 MG TAB.RAP.DR PO SCH (05:45)
[2016-11-03] MEDS: ENOXAPARIN SODIUM INJ 40 MG/0.4 ML DISP.SYRIN SUBCUT SCH (07:57)
[2016-11-03] MEDS ORDERED: OMEGA-3 ACID ETHYL ESTERS 1 GM CAPSULE PO SCH (10:00)
[2016-11-03] MEDS ORDERED: (PENDING PHARMACY ID) (Brexpiprazole [Rexulti] 3 MG) PO SCH (10:00)
[2016-11-03] MEDS ORDERED: (PENDING PHARMACY ID) (Citalopram Hydrobromide [Celexa 40 Mg Tablet] 40 MG) PO SCH (10:00)
[2016-11-03] MEDS: CITALOPRAM HYDROBROMIDE 20 MG TABLET PO SCH ×2 (10:32→21:53)
[2016-11-03] MEDS: ASPIRIN 325 MG TABLET, ENT COATED PO SCH (10:32)
[2016-11-03] MEDS: OMEGA-3 ACID ETHYL ESTERS 1 GM CAPSULE PO SCH ×2 (10:33→17:25)
--- NOTE | 2016-11-03 11:51 | PDOC PROGRESS REPORT ---
Subjective Progress Note for:: 11/03/16 Subjective:: Patient reported resolution of her headache. No dizziness, nausea, or vomiting. She denied chest pain or difficulty with her breathing. Tolerating oral feeding. No focal muscle weakness. Physical Exam Vital Signs: Temp Pulse Resp BP Pulse Ox 98.5 F 60 16 140/79 H 99 11/03/16 07:17 11/03/16 08:36 11/03/16 08:20 11/03/16 08:20 11/03/16 08:20 Intake & Output 11/02/16 11/03/16 11/04/16 06:59 06:59 06:59 Intake Total 625 Output Total 350 Balance 275 Weight 80.4 kg General appearance: PRESENT: no acute distress, cooperative, morbidly obese Head exam: PRESENT: atraumatic, normocephalic Eye exam: PRESENT: conjunctiva pink, EOMI, PERRLA. ABSENT: scleral icterus Mouth exam: PRESENT: moist Neck exam: PRESENT: full ROM. ABSENT: carotid bruit, JVD, lymphadenopathy, thyromegaly Respiratory exam: ABSENT: accessory muscle use, chest wall tenderness, clear to auscultation bri, crackles, decreased breath sounds, prolonged expiratory phas, rales, retraction, rhonchi, stridor, symmetrical, tachypnea, unlabored, wheezes , other Cardiovascular exam: PRESENT: RRR. ABSENT: diastolic murmur, rubs, systolic murmur GI/Abdominal exam: PRESENT: normal bowel sounds, soft. ABSENT: distended, guarding, mass, organolmegaly, rebound, tenderness Extremities exam: PRESENT: full ROM Musculoskeletal exam: PRESENT: ambulatory, full ROM, normal inspection Neurological exam: PRESENT: alert, awake, oriented to person, oriented to place , oriented to time, oriented to situation, CN II-XII grossly intact. ABSENT: motor sensory deficit Psychiatric exam: PRESENT: appropriate affect, normal mood. ABSENT: homicidal ideation, suicidal ideation Skin exam: PRESENT: dry, intact, warm. ABSENT: cyanosis, rash Results Laboratory Results: 11/03/16 03:47 11/03/16 03:47 11/03/16 11/03/16 03:47 03:47 WBC 8.9 RBC 4.66 Hgb 13.6 Hct 39.2 MCV 84 MCH 29.2 MCHC 34.7 RDW 13.9 Plt Count 184 Seg Neutrophils % 66.0 Lymphocytes % 24.4 Monocytes % 5.6 Eosinophils % 2.9 Basophils % 1.1 Absolute Neutrophils 5.9 Absolute Lymphocytes 2.2 Absolute Monocytes 0.5 Absolute Eosinophils 0.3 Absolute Basophils 0.1 Sodium 140.2 Potassium 3.6 Chloride 105 Carbon Dioxide 25 Anion Gap 10 BUN 12 Creatinine 0.92 Est GFR ( Amer) > 60 Est GFR (Non-Af Amer) > 60 Glucose 207 H Calcium 9.4 Total Bilirubin 0.7 AST 19 ALT 30 Alkaline Phosphatase 84 Total Protein 6.0 L Albumin 3.6 Triglycerides 1270 H Cholesterol 236.88 H LDL Cholesterol Direct < 30 VLDL Cholesterol UNABLE TO CALCULATE HDL Cholesterol 20 L Impressions: Chest X-Ray 11/02/16 10:23 IMPRESSION: NO SIGNIFICANT RADIOGRAPHIC FINDING IN THE CHEST. Head CT 11/02/16 11:35 IMPRESSION: Stable appearance. Carotid Doppler Study 11/03/16 07:00 IMPRESSION: NO HEMODYNAMICALLY SIGNIFICANT STENOSIS. Assessment & Plan - Diagnosis (1) CVA (cerebrovascular accident) Qualifiers: CVA mechanism: occlusion Precerebral and cerebral artery: unspecified precerebral artery Qualified Code(s): I63.20 - Cerebral infarction due to unspecified occlusion or stenosis of unspecified precerebral arteries Is this a current diagnosis for this admission?: YesPlan: Maintain on EC Aspirin 325 mg po daily. Continue MENDS for possible worsening of neurological symptoms x 24 hours. (2) Type 2 diabetes mellitus with hyperglycemia, with long-term current use of insulin Is this a current diagnosis for this admission?: YesPlan: Start on Metformin 500 mg po bid. Continue on ACHS sliding scale Humalog insulin coverage. (3) HLD (hyperlipidemia) Qualifiers: Hyperlipidemia type: mixed hyperlipidemia Qualified Code(s): E78.2 - Mixed hyperlipidemia Is this a current diagnosis for this admission?: YesPlan: Increase Atorvastatin to 40 mg po qhs. Continue on other current medication management. (4) GERD (gastroesophageal reflux disease) Qualifiers: Esophagitis presence: without esophagitis Qualified Code(s): K21.9 - Gastro-esophageal reflux disease without esophagitis Is this a current diagnosis for this admission?: Yes (5) Depression Qualifiers: Major depression recurrence: recurrent Active/Remission status: currently active Major depression episode severity: moderate Is this a current diagnosis for this admission?: Yes (6) PTSD (post-traumatic stress disorder) Is this a current diagnosis for this admission?: Yes (7) COPD (chronic obstructive pulmonary disease) Qualifiers: COPD type: emphysema Emphysema type: unspecified Qualified Code( s): J43.9 - Emphysema, unspecified Is this a current diagnosis for this admission?: Yes - Time Time Spent with patient: 25-34 minutes Medications reviewed and adjusted accordingly: Yes Anticipated discharge: Home Within: Other - Inpatient Certification Medical Necessity: Need Close Monitoring Due to Risk of Patient Decompensation, Need For IV Fluids, Need For Continuous Telemetry Monitoring, Risk of Complication if Not Cared For in Hospital Post Hospital Care: D/C Coagulating Operator Documentation - Plan Summary Plan Summary: see attending physician orders.
[2016-11-03] MEDS: NORMAL SALINE 1000 ML 1,000 ML IV PRN (12:40)
[2016-11-03] MEDS: METFORMIN HCL 500 MG TABLET PO SCH (15:43)
--- NOTE | 2016-11-03 17:11 | Physician Advisory Note ---
Physician Advisor ProgressNote .: Pursuant to the plan for Replaced By [facility], I have reviewed the medical record for this patient. Physician Advisor Statement: Possible documentation opportunities if attending agrees: 1.~ "Acute occlusive Rt occipital CVA w/infarction involving the Rt ____ artery* , with reported dizziness/AGUILERA, nausea, Lt nondominant [vs dominant] side [ any transient hemiparesis? facial droop? dysarthria? ...]", Ant/middle/post cerebral , sup cerebellar, or ant/post inf cerebellar artery? 2.~ Medical necessity: Need documentation to explain why this pt, who has no further sx at this point, still needs to be in hospital for another night. This reviewer knows this attending is very experienced, has good clinical judgement, & doesn't keep pts in hospital when there is no necessity to do so, but outside auditors will not read between the lines or assume anything. As always, please document each day the potential clinical problems you are concerned could occur if pt not kept in hospital for tx at this time. Status:~ 51yo female w/COPD, DM-2, cervical CA, obesity w/BMI 42.7, GERD, PTSD,depression , tobacco dependence, continuous use of Xanax presented 11/02 AM after being called to return to ED by attg due to acute CVA. She had been in ED 11/01 with findings of Rt occip CVA w/surrounding edema but left AMA. She was having more AGUILERA with nausea, dizziness, forgetfulness, CP/pressure. Repeat CT on 11/02 showed no worsening edema or hemorrhage. AF VSS, sat 98%, CBC WNL, CMP ok except A1C 11.4, abnormal lipids. Attending ordered ASA, NS @75, echo, carotids, neuro checks, plug making operator c/s. At this point, she was most appropriate to be Outpt Observation based on current documentation, not knowing whether or not she would need a 2nd MN of care/monitoring. As of 11/03, carotids neg. ECHO has been done. Pt reportedly has no further sx at all today, per progress note 11/03. Attending giving ASA, low level IVF @75, telemetry monitoring, plug making operator consult , neurochecks. Plans to continue tele, continue neuro checks x 24h more, start metformin, increase Lipitor. - ?concerned for recurrence of sx, or ....? Continued tx & monitoring in inpatient hospital setting for a 2nd night medically reasonable & necessary to protect pt's health, safety, & medical condition?? Please document reasons. If not, should not be Inpatient status. Thanks for your help with documentation accuracy/specificity improvement! Neris Arreola MD [facility] Physician Advisor, Fellow of [facility]
[2016-11-03] MEDS ORDERED: ATORVASTATIN CALCIUM 40 MG TABLET PO SCH (22:00)
[2016-11-04] MEDS: LANSOPRAZOLE 30 MG TAB.RAP.DR PO SCH (05:50)
[2016-11-04] MEDS: NORMAL SALINE 1000 ML 1,000 ML IV PRN (05:50)
[2016-11-04] MEDS: INSULIN LISPRO 100 UNIT/ML 3 ML VIAL SUBCUT PRN ×2 (07:43→12:52)
[2016-11-04] MEDS: ENOXAPARIN SODIUM INJ 40 MG/0.4 ML DISP.SYRIN SUBCUT SCH (07:44)
[2016-11-04] MEDS: METFORMIN HCL 500 MG TABLET PO SCH ×2 (07:44→15:14)
[2016-11-04] MEDS: CITALOPRAM HYDROBROMIDE 20 MG TABLET PO SCH (09:21)
[2016-11-04] MEDS: ASPIRIN 325 MG TABLET, ENT COATED PO SCH (09:21)
[2016-11-04] MEDS: OMEGA-3 ACID ETHYL ESTERS 1 GM CAPSULE PO SCH (09:21)
--- NOTE | 2016-11-04 10:36 | XCELERA REPORT ---
[address] [address] Transthoracic Echocardiogram Report Name: NISSA TUTTLE Age: 51 yrs Gender: Female : 1965 Patient Status: Inpatient Patient Location: [id number]\A Study Date: 11/03/2016 08:37 AM Height: 64 in Weight: 178 lb BSA: 1.9 m2 Procedure: A two-dimensional transthoracic echocardiogram with color flow and Doppler was performed. Study Quality: Fair. Reason For Study: Acute stroke, DM type 2 History: CVA. Ordering Physician: JUAN WHALEY Performed By: Isaías Plunkett Interpretation Summary There is no obvious cardiac source of embolus noted on this transthoracic echocardiogram. Follow-up with a VIOLET is suggested if cardiac source is still suspected. The left ventricle is normal in size. There is normal left ventricular wall thickness. LV EF is > than60% Left ventricular systolic function is normal. Doppler measurements suggest normal left ventricular diastolic function The left ventricular wall motion is normal. There is no thrombus. The right ventricle is normal in size and function. The left atrial size is normal. There is no evidence of mitral valve prolapse. There is no mitral valve stenosis. There is a mild amount of mitral regurgitation AV not well seen .Cannot exclude bicuspid Aortic Valve. There is mild aortic stenosis There is a peak gradient of 22 mm of Hg. No aortic regurgitation is present. There is a trace amount of tricuspid regurgitation Right ventricular systolic pressure is normal. RVSP is 28 mm of Hg , with RA mean of 5. There is no pericardial effusion. There is no obvious cardiac source of embolus noted on this transthoracic echocardiogram. Follow-up with a VIOLET is suggested if cardiac source is still suspected MMode/2D Measurements \T\ Calculations RVDd: 2.1 cm LVIDd: 5.3 cm FS: 43.9 % Ao root diam: 3.0 cm IVSd: 0.80 cm LVIDs: 3.0 cm EDV(Teich): 137.0 ml LVPWd: 0.84 cmESV(Teich): 34.6 ml Ao root area: 6.9 cm2 EF(Teich): 74.7 % LA dimension: 3.1 cm LVOT diam: 2.4 cm LVOT area: 4.4 cm2 Doppler Measurements \T\ Calculations MV E max harley: MV P1/2t max harley: Ao V2 max: LV V1 max P.6 cm/sec 108.6 cm/sec 232.2 cm/sec 4.6 mmHg MV A max harley: MV P1/2t: 50.0 msec Ao max PG: LV V1 mean P.6 cm/sec MVA(P1/2t): 4.4 cm2 21.6 mmHg 2.0 mmHg MV E/A: 1.5 MV dec slope: Ao V2 mean: LV V1 max: 636.7 cm/sec2 149.2 cm/sec 107.2 cm/sec MV dec time: 0.17 secAo mean PG: LV V1 mean: 10.5 mmHg 65.1 cm/sec Ao V2 VTI: LV V1 VTI: 47.8 cm 21.5 cm GIN(I,D): 2.0 cm2 GIN(V,D): 2.0 cm2 SV(LVOT): 95.5 ml PA V2 max: TR max harley: 76.0 cm/sec 239.5 cm/sec PA max P.3 mmHg TR max P.9 mmHg Left Ventricle The left ventricle is normal in size. There is normal left ventricular wall thickness. LV EF is > than60%. Left ventricular systolic function is normal. Doppler measurements suggest normal left ventricular diastolic function. The left ventricular wall motion is normal. There is no thrombus. There is no ventricular septal defect visualized. Right Ventricle The right ventricle is normal in size and function. Atria The right atrium is normal. The left atrial size is normal. Mitral Valve There is no evidence of mitral valve prolapse. There is no vegetation seen on the mitral valve. There is no mitral valve stenosis. There is a mild amount of mitral regurgitation. Aortic Valve AV not well seen .Cannot exclude bicuspid Aortic Valve. There is no aortic valvular vegetation. There is mild aortic stenosis. There is a peak gradient of 22 mm of Hg. There is no LVOT obstruction. No aortic regurgitation is present. Tricuspid Valve There is no tricuspid stenosis. There is a trace amount of tricuspid regurgitation. Right ventricular systolic pressure is normal. RVSP is 28 mm of Hg , with RA mean of 5. Pulmonic Valve There is no pulmonic valvular stenosis. There is no pulmonic valvular regurgitation. Great Vessels The aortic root is normal size. Effusions There is no pericardial effusion. : JUAN WHALEY > Bhavna Dunham
[2016-11-04 14:45] VITALS: BP 108/78
--- NOTE | 2016-11-05 12:37 | PDOC DISCHARGE SUMMARY ---
General - Admit/Disc Date/PCP Admission Date/Primary Care Provider: 11/02/16 17:22 JUAN JUDD Discharge Date: 11/04/16 - Discharge Diagnosis (1) CVA (cerebrovascular accident) Is this a current diagnosis for this admission?: Yes (2) Type 2 diabetes mellitus with hyperglycemia, with long-term current use of insulin Is this a current diagnosis for this admission?: Yes (3) HLD (hyperlipidemia) Is this a current diagnosis for this admission?: Yes (4) GERD (gastroesophageal reflux disease) Is this a current diagnosis for this admission?: Yes (5) Depression Is this a current diagnosis for this admission?: Yes (6) PTSD (post-traumatic stress disorder) Is this a current diagnosis for this admission?: Yes (7) COPD (chronic obstructive pulmonary disease) Is this a current diagnosis for this admission?: Yes - Additional Information Resuscitation Status: Full Code Discharge Diet: Cardiac, Diabetic Discharge Activity: Activity As Tolerated Home Medications: Albuterol Sulfate [Ventolin HFA MDI 18 GM] 2 puff IH Q4HP PRN 11/02/16 Alprazolam [Xanax] 1 mg PO Q8 11/02/16 Brexpiprazole [Rexulti] 3 mg PO DAILY 11/02/16 Citalopram Hydrobromide [Celexa 40 mg Tablet] 40 mg PO BID 11/02/16 Insulin Aspart [Novolog Flexpen] 0 units SQ ASDIR PRN 11/02/16 [place]-3 Acid Ethyl Esters [Lovaza 1 gm Capsule] 2 cap PO BID 11/02/16 Trazodone HCl [Desyrel] 200 mg PO HSP PRN 11/02/16 Zolpidem Tartrate [Ambien] 10 mg PO HSP PRN 11/02/16 Aspirin [Ecotrin 81 mg EC Tablet] 81 mg PO DAILY #30 tab 11/04/16 Atorvastatin Calcium [Lipitor 40 mg Tablet] 40 mg PO QHS #30 tablet 11/04/16 Lansoprazole [Prevacid 30 mg Odt Tablet] 30 mg PO Q6AM #30 tab 11/04/16 Losartan Potassium 25 mg PO DAILY #30 tablet 11/04/16 Metformin HCl [Glucophage] 850 mg PO BIDACBS #0 tablet 11/04/16 History of Present Illness History of Present Illness: NISSA TUTTLE is a 51 year old female who presented to the ED after efforts to contact her at home following her presentation to the ED on 11/01/2016 with complaint of headache and her evaluation with head CT scan and MRI suggested right occipital infarct with surrounding edema. Patient signed out against medical advised despite explanation of need for hospitalization. She claimed that her headache did improved before leaving the ED following her initial visit that was about 24 hours after onset of her headache. In view of above I was able to contact patient and after extensive discussion did agreed to come to our ED earlier today due to persistent chest pressure like pain and headache. She admitted to nausea but no vomiting on 11/01/2016. She denied any focal weakness. There are episodes of dizziness and forgetfulness. She denied any fever or chills. Her repeat head CT scan revealed stable right occipital infarct without mention of associated hemorrhage or worsening edema. Hospital Course Hospital Course: Patient reported resolution of her symptoms with regard to headache and dizziness. She was managed with Aspirin due to time of onset to presentation exclusion. Her lipid panel revealed significant abnormality. In view of her elevated HgA1c and mixed Hyperlipidemia, she was stated on Metformin therapy and increased Atorvastatin to 40 mg p.o daily respectively. Also, she was start on Losartan 25 mg p.o daily. She is agreeable to discharge and will follow up in office as instructed upon discharge. Physical Exam Vital Signs: Temp Pulse Resp BP Pulse Ox 98.2 F 69 20 108/78 100 11/04/16 14:40 11/04/16 14:40 11/04/16 14:40 11/04/16 14:40 11/04/16 14:40 Intake & Output 11/04/16 11/05/16 11/06/16 06:59 06:59 06:59 Intake Total 3280 592 Balance 3280 592 Weight 81.1 kg General appearance: PRESENT: no acute distress, well-developed, well-nourished Head exam: PRESENT: atraumatic, normocephalic Eye exam: PRESENT: conjunctiva pink, EOMI, PERRLA. ABSENT: scleral icterus Ear exam: PRESENT: normal external ear exam Mouth exam: PRESENT: moist, tongue midline Neck exam: PRESENT: full ROM. ABSENT: carotid bruit, JVD, lymphadenopathy, thyromegaly Respiratory exam: ABSENT: accessory muscle use, chest wall tenderness, clear to auscultation bri, crackles, decreased breath sounds, prolonged expiratory phas, rales, retraction, rhonchi, stridor, symmetrical, tachypnea, unlabored, wheezes , other Cardiovascular exam: PRESENT: RRR. ABSENT: diastolic murmur, rubs, systolic murmur GI/Abdominal exam: PRESENT: normal bowel sounds, soft. ABSENT: distended, guarding, mass, organolmegaly, rebound, tenderness Extremities exam: PRESENT: full ROM Neurological exam: PRESENT: alert, awake, oriented to person, oriented to place , oriented to time, oriented to situation, CN II-XII grossly intact. ABSENT: motor sensory deficit Psychiatric exam: PRESENT: appropriate affect, normal mood. ABSENT: homicidal ideation, suicidal ideation Skin exam: PRESENT: dry, intact, warm. ABSENT: cyanosis, rash Results Laboratory Results: 11/03/16 03:47 11/03/16 03:47 Impressions: Chest X-Ray 11/02/16 10:23 IMPRESSION: NO SIGNIFICANT RADIOGRAPHIC FINDING IN THE CHEST. Head CT 11/02/16 11:35 IMPRESSION: Stable appearance. Carotid Doppler Study 11/03/16 07:00 IMPRESSION: NO HEMODYNAMICALLY SIGNIFICANT STENOSIS. Qualifiers PATEINT BEING DISCHARGED WITH ANY OF THE FOLLOWING DIAGNOSIS?: Stroke VTE patient discharged on overlapping Therapy?: Yes Stroke Pt being discharged on Anti-thrombolytic therapy?: Yes Stroke Pt being discharged on Anti-coagulation therapy?: No Reason(s) for not prescribing Anti-coagulation therapy:: Not indicated Stroke Pt being discharged on Statins?: Yes Plan Time Spent: Greater than 30 Minutes - i had extensive discussion with patient regarding medication comliance, dietary restrictions and post hospital care follow up plan.
== END 2016-11-04 15:20 | disposition home or self-care (01) | DRG 65 ==
LOC: ER 10:10 → UNDOADMOB 12:37 → EH 12:37 → INTOOBSV 17:22 → OBSVTOIN 17:22 → 3N 21:55
PROVIDERS: ADMIT Internal Medicine Geriatric Medicine; ATTEND Internal Medicine Geriatric Medicine
DX: I63.20 Cerebral infarction due to unspecified occlusion or stenosis of unspecified precerebral arteries (principal); F33.9 Major depressive disorder, recurrent, unspecified; E11.65 Type 2 diabetes mellitus with hyperglycemia; K21.9 Gastro-esophageal reflux disease without esophagitis; F43.10 Post-traumatic stress disorder, unspecified; E78.2 Mixed hyperlipidemia; J43.9 Emphysema, unspecified; F17.210 Nicotine dependence, cigarettes, uncomplicated; Z79.4 Long term (current) use of insulin; Z85.41 Personal history of malignant neoplasm of cervix uteri; Z79.899 Other long term (current) drug therapy; Z83.3 Family history of diabetes mellitus; Z82.49 Family history of ischemic heart disease and other diseases of the circulatory system; Z88.6 Allergy status to analgesic agent; Z88.8 Allergy status to other drugs, medicaments and biological substances
CPT/HCPCS: 36415; 70450; 70460; 70553; 71020; 80053; 80061; 82550; 82553; 82962; 83036; 83735; 84484; 85025; 93005; 93010; 93306; 93880; 96361; 96372; 96374; 96375; 99285; A9577; J1200; J1650; J1815; J2060; J2765; J3490; J7030

== ENCOUNTER 2016-11-24 01:52 | Emergency (ER) | payer MEDICARE, MEDICAID ==
[2016-11-24] MEDS ORDERED: OXYCODONE-ACETAMINOPHEN 5-325 MG TABLET PO ONE (03:19)
[2016-11-24] MEDS ORDERED: ONDANSETRON 4 MG TAB.RAPDIS PO ONE (03:19)
--- NOTE | 2016-11-24 03:20 | ER Document Report ---
ED General - General Chief Complaint: Flank Pain Stated Complaint: BACK PAIN Time seen by provider: 03:10 Notes: Patient is a 51-year-old female that comes emergency department for chief complaint of pain in her left flank since yesterday morning, pain is dull but has become sharper, patient states that it takes longer to urinate but she does not have painful urination. Patient states she has had fairly regular bowel movements which did not appear abnormal, she denies nausea or vomiting, denies fever or chills, denies history of kidney stones, denies injury to the area. Past medical history of type I diabetes, CVA. TRAVEL OUTSIDE OF THE [place] IN LAST 30 DAYS: No - Related Data Allergies/Adverse Reactions: exenatide [From Byetta] Allergy (Severe, Verified 11/01/16 11:59) swelling NSAIDS (Non-Steroidal Anti-Inflamma Allergy (Severe, Verified 11/01/16 11:59) Anaphylaxis Past Medical History - General Information source: Patient - Social History Smoking Status: Never Smoker Frequency of alcohol use: None Drug Abuse: None Lives with: Family Family History: DM, Hypertension Patient has suicidal ideation: No Patient has homicidal ideation: No - Past Medical History Cardiac Medical History: Reports: Hx Hypercholesterolemia Denies: Hx Coronary Artery Disease, Hx Heart Attack, Hx Hypertension Pulmonary Medical History: Reports: Hx Bronchitis, Hx COPD, Hx Pneumonia Denies: Hx Asthma, Hx Tuberculosis Neurological Medical History: Denies: Hx Cerebrovascular Accident, Hx Migraine, Hx Seizures Endocrine Medical History: Reports: Hx Diabetes Mellitus Type 2 - IDDM Renal/ Medical History: Denies: Hx Peritoneal Dialysis Malignancy Medical History: Reports: Hx Cervical Cancer GI Medical History: Reports: Hx Gastroesophageal Reflux Disease Musculoskeltal Medical History: Denies Hx Arthritis Psychiatric Medical History: Reports: Hx Anxiety, Hx Depression, Hx Post Traumatic Stress Disorder Past Surgical History: Reports: Hx Section - x2, Hx Hysterectomy, Hx Orthopedic Surgery - BL elbow. - Immunizations Immunizations up to date: No Hx Diphtheria, Pertussis, Tetanus Vaccination: No Hx Pneumococcal Vaccination: 10/11/10 Review of Systems - Review of Systems Constitutional: No symptoms reported EENT: No symptoms reported Cardiovascular: No symptoms reported Respiratory: No symptoms reported Gastrointestinal: See HPI Genitourinary: See HPI Female Genitourinary: No symptoms reported Musculoskeletal: See HPI Skin: No symptoms reported Hematologic/Lymphatic: No symptoms reported Neurological/Psychological: No symptoms reported Physical Exam - Vital signs Vitals: Temp Pulse Resp BP Pulse Ox 98.5 F 81 16 139/78 H 97 11/24/16 02:11 11/24/16 02:11 11/24/16 02:11 11/24/16 02:11 11/24/16 02:11 Interpretation: Normal - General General appearance: Alert, Anxious In distress: Mild - Patient moves comfortably and stiffly, appears to be in some pain - HEENT Head: Normocephalic, Atraumatic Eyes: Normal Pupils: PERRL - Respiratory Respiratory status: No respiratory distress Chest status: Nontender Breath sounds: Normal Chest palpation: Normal - Cardiovascular Rhythm: Regular Heart sounds: Normal auscultation Murmur: No - Abdominal Inspection: Normal Distension: No distension Bowel sounds: Normal Tenderness: Nontender Organomegaly: No organomegaly - Back Back: Tender - Patient has tender muscle cords over the left lumbar area, no CVA tenderness, no spinal tenderness midline, no saddle anesthesia, patient moves all extremities without difficulty although does have some pain with left- sided straight leg raise - Extremities General upper extremity: Normal inspection, Nontender, Normal color, Normal ROM , Normal temperature General lower extremity: Normal inspection, Nontender, Normal color, Normal ROM , Normal temperature, Normal weight bearing. No: Joanne's sign - Neurological Neuro grossly intact: Yes Cognition: Normal Orientation: AAOx4 Bud Coma Scale Eye Opening: Spontaneous Bud Coma Scale Verbal: Oriented Bud Coma Scale Motor: Obeys Commands Bud Coma Scale Total: 15 Speech: Normal Motor strength normal: LUE, RUE, LLE, RLE Sensory: Normal - Psychological Associated symptoms: Normal affect, Normal mood - Skin Skin Temperature: Warm Skin Moisture: Dry Skin Color: Normal Course - Re-evaluation Re-evalutation: Urinalysis is unremarkable, location of pain appears to be musculoskeletal, patient still in pain after Percocet and Zofran, patient given IM Valium as a muscle relaxant, after this patient symptoms completely resolved. Patient smiling and grateful. Will discharge on Valium, instructions given for muscular spasm, patient states she'll follow-up with her primary care and return for any concerning symptoms. - Vital Signs Vital signs: Temp Pulse Resp BP Pulse Ox 98.4 F 77 16 121/74 98 11/24/16 06:07 11/24/16 06:07 11/24/16 06:07 11/24/16 06:07 11/24/16 06:07 Discharge - Discharge Clinical Impression: Flank pain Condition: Stable Disposition: HOME, SELF-CARE Additional Instructions: Examination is consistent with a muscular source of your pain. Take the Valium, apply heat to the area, rest, avoid lifting/twisting. Follow-up with your primary care closely for additional treatment. Return to emergency department for any concerning or worsening symptoms. Prescriptions: Diazepam [Valium 5 mg Tablet] 1 - 2 tab PO TID PRN #20 tablet PRN Reason: Referrals: JUAN WHALEY MD [Primary Care Provider] - Follow up as needed
[2016-11-24 03:51] LABS: APPEARANCE,URINE CLEAR; BILIRUBIN,URINE NEGATIVE (NEGATIVE); GLUCOSE, URINE NEGATIVE (NEGATIVE); KETONES,URINE NEGATIVE (NEGATIVE); LEUKOCYTE ESTERASE,URINE NEGATIVE (NEGATIVE); NITRITE,URINE NEGATIVE (NEGATIVE); PROTEIN,URINE NEGATIVE (NEGATIVE); URINE SPECIFIC GRAVITY 1.015; UROBILINOGEN,URINE NEGATIVE mg/dL (<2.0)
[2016-11-24] MEDS ORDERED: DIAZEPAM INJ 10 MG/2 ML DISP.SYRIN IM ONE (05:07)
[2016-11-24 06:09] VITALS: BP 121/74
== END 2016-11-24 06:10 | disposition home or self-care (01) ==
LOC: ER 01:52
DX: R10.9 Unspecified abdominal pain (principal); E10.9 Type 1 diabetes mellitus without complications; Z87.892 Personal history of anaphylaxis; Z88.8 Allergy status to other drugs, medicaments and biological substances
CPT/HCPCS: 99284; 96372; 81001; J3360; A9270 ×2; S0119

== ENCOUNTER 2017-05-18 13:20 | Emergency (ER) | payer MEDICARE, MEDICAID ==
[2017-05-18] MEDS ORDERED: ACETAMINOPHEN 325 MG TABLET PO ONE (14:20)
--- NOTE | 2017-05-18 14:22 | ER Document Report ---
HPI - HPI Patient complains to provider of: r shoulder pain Onset: Last week Onset/Duration: Persistent Quality of pain: Achy Pain Level: 5 Context: Presents complaining of right shoulder joint pain for the past week. Patient states that she has not had any injury that she is aware of. Patient additionally reports that she has had some urinary frequency but denies any dysuria. Patient states that she will be following up with her primary doctor regarding her urinary symptoms next week. Patient presents with a low-grade temperature, patient denies any symptoms to explain the low-grade temperature at this time. Patient denies any recent illness. Associated Symptoms: Other - Urinary frequency, right shoulder joint pain. denies: Chest pain, Nonproductive cough, Productive cough Exacerbated by: Movement Relieved by: Denies Similar symptoms previously: No Recently seen / treated by doctor: No - ROS ROS below otherwise negative: Yes Systems Reviewed and Negative: Yes All other systems reviewed and negative - CONSTITUTIONAL Constitutional: DENIES: Fever, Chills - NEURO Neurology: DENIES: Headache, Weakness - CARDIOVASCULAR Cardiovascular: DENIES: Chest pain - RESPIRATORY Respiratory: DENIES: Trouble Breathing, Coughing - GASTROINTESTINAL Gastrointestinal: DENIES: Abdominal Pain - URINARY Urinary: REPORTS: Frequency. DENIES: Dysuria, Urgency - REPRODUCTIVE LMP: Hyst Reproductive: DENIES: : - MUSCULOSKELETAL Musculoskeletal: REPORTS: Extremity pain - Shoulder joint. DENIES: Back Pain - DERM Skin Color: Normal Skin Problems: None Past Medical History - General Information source: Patient - Social History Smoking Status: Current Every Day Smoker Frequency of alcohol use: None Drug Abuse: None Family History: DM, Hypertension Patient has suicidal ideation: No Patient has homicidal ideation: No - Past Medical History Cardiac Medical History: Reports: Hx Hypercholesterolemia Denies: Hx Coronary Artery Disease, Hx Heart Attack, Hx Hypertension Pulmonary Medical History: Reports: Hx Bronchitis, Hx COPD, Hx Pneumonia Denies: Hx Asthma, Hx Tuberculosis Neurological Medical History: Denies: Hx Cerebrovascular Accident, Hx Migraine, Hx Seizures Endocrine Medical History: Reports: Hx Diabetes Mellitus Type 2 - IDDM Renal/ Medical History: Denies: Hx Peritoneal Dialysis Malignancy Medical History: Reports: Hx Cervical Cancer GI Medical History: Reports: Hx Gastroesophageal Reflux Disease Musculoskeltal Medical History: Denies Hx Arthritis Psychiatric Medical History: Reports: Hx Anxiety, Hx Depression, Hx Post Traumatic Stress Disorder Past Surgical History: Reports: Hx Section - x2, Hx Hysterectomy, Hx Orthopedic Surgery - BL elbow. - Immunizations Immunizations up to date: No Hx Diphtheria, Pertussis, Tetanus Vaccination: No Hx Pneumococcal Vaccination: 10/11/10 Vertical Provider Document - CONSTITUTIONAL Agree With Documented VS: Yes Exam Limitations: No Limitations General Appearance: WD/WN, No Apparent Distress - INFECTION CONTROL TRAVEL OUTSIDE OF THE [place] IN LAST 30 DAYS: No - HEENT HEENT: Atraumatic, Normocephalic - NECK Neck: Normal Inspection, Supple - RESPIRATORY Respiratory: Breath Sounds Normal, No Respiratory Distress, Chest Non-Tender O2 Sat by Pulse Oximetry: 98 - CARDIOVASCULAR Cardiovascular: Regular Rate, Regular Rhythm, No Murmur Pulses: Normal: Radial - BACK Back: Normal Inspection. negative: CVA Tenderness-Right, CVA Tenderness-Left Notes: No midline tenderness, step-off or deformity - MUSCULOSKELETAL/EXTREMETIES Musculoskeletal/Extremeties: MAEW, Tender - Right shoulder joint tenderness over anterior aspect of humeral head, worse with ROM, abduction and extension. - NEURO Level of Consciousness: Awake, Alert, Appropriate Motor/Sensory: No Motor Deficit - DERM Integumentary: Warm, Dry, No Rash Course - Vital Signs Vital signs: Temp Pulse Resp BP Pulse Ox 100.0 F 103 H 17 125/76 98 05/18/17 13:22 05/18/17 13:22 05/18/17 13:22 05/18/17 13:22 05/18/17 13:22 - Laboratory Laboratory results interpreted by me: 05/18/17 16:24 Labs- Entire Visit 05/18/17 14:42 Urine Color YELLOW Urine Appearance SLIGHTLY-CLOUDY Urine pH 5.0 Ur Specific [place] 1.021 Urine Protein NEGATIVE Urine Glucose (UA) 150 H Urine Ketones NEGATIVE Urine Blood NEGATIVE Urine Nitrite NEGATIVE Urine Bilirubin NEGATIVE Urine Urobilinogen NEGATIVE Ur Leukocyte Esterase NEGATIVE Urine WBC (Auto) 1 Squamous Epi Cells Auto 2 Urine Mucus (Auto) RARE Urine Ascorbic Acid NEGATIVE 05/18/17 21:05 - Diagnostic Test Radiology reviewed: Reports reviewed Discharge - Discharge Clinical Impression: Arthritis, Urinary symptom or sign Shoulder joint pain Qualifiers: Laterality: right Qualified Code(s): M25.511 - Pain in right shoulder Condition: Stable Disposition: HOME, SELF-CARE Instructions: Arthritis ([facility]), Acetaminophen Additional Instructions: Return immediately for any new or worsening symptoms Followup with your primary care provider, call tomorrow to make a followup appointment Follow-up with orthopedic doctor for any continued shoulder joint pain Urine culture is pending, we will call if you need any different treatment Referrals: JUAN WHALEY MD [Primary Care Provider] - Follow up tomorrow [facility] [Provider Group] - Follow up as needed
--- NOTE | 2017-05-18 15:14 | RADIOLOGY REPORT (SQ) ---
EXAM DESCRIPTION: SHOULDER RIGHT 2 OR MORE VIEWS COMPLETED DATE/TIME: 05/18/2017 2:54 pm REASON FOR STUDY: r shoulder joint pain COMPARISON: None. NUMBER OF VIEWS: Three views. TECHNIQUE: Internal rotation, external rotation, and Y view images acquired of the right shoulder. LIMITATIONS: None. FINDINGS: MINERALIZATION: Normal. BONES: No acute fracture or dislocation. No worrisome bone lesions. JOINTS: No dislocation. Minimal degenerative changes. VISUALIZED LUNGS AND RIBS: No pneumothorax. No rib fracture. SOFT TISSUES: No radiopaque foreign body. OTHER: No other significant finding. IMPRESSION: Minimal degenerative changes otherwise negative right shoulder. TECHNICAL DOCUMENTATION: JOB ID: [id number] [employer]- All Rights Reserved
[2017-05-18 15:48] LABS: APPEARANCE,URINE SLIGHTLY-CLOUDY; BILIRUBIN,URINE NEGATIVE (NEGATIVE); GLUCOSE, URINE 150 mg/dL (NEGATIVE); KETONES,URINE NEGATIVE (NEGATIVE); LEUKOCYTE ESTERASE,URINE NEGATIVE (NEGATIVE); NITRITE,URINE NEGATIVE (NEGATIVE); PROTEIN,URINE NEGATIVE (NEGATIVE); URINE SPECIFIC GRAVITY 1.021; UROBILINOGEN,URINE NEGATIVE mg/dL (<2.0)
[2017-05-18] MEDS ORDERED: HYDROCODONE/ACETAMINOPHEN 5-325 MG 6 TAB/DSPK PO PRN (16:26)
[2017-05-18 16:36] VITALS: BP 106/74
== END 2017-05-18 16:36 | disposition home or self-care (01) ==
LOC: ER 13:20
DX: M25.511 Pain in right shoulder (principal); M19.90 Unspecified osteoarthritis, unspecified site; R39.198 Other difficulties with micturition; F17.200 Nicotine dependence, unspecified, uncomplicated; E78.00 Pure hypercholesterolemia, unspecified; E11.9 Type 2 diabetes mellitus without complications; K21.9 Gastro-esophageal reflux disease without esophagitis; Z79.4 Long term (current) use of insulin; Z85.41 Personal history of malignant neoplasm of cervix uteri; Z90.710 Acquired absence of both cervix and uterus
CPT/HCPCS: 99284; 87086; 81001; 73030; A9270 ×2

== ENCOUNTER → 2017-08-24 | Outpatient (CLI) | payer MEDICARE, MEDICAID | LOC: LAB 11:27 | PROVIDERS: ATTEND Internal Medicine Geriatric Medicine | DX: K58.0 Irritable bowel syndrome with diarrhea (principal) | CPT/HCPCS: 87045; 87177; 87205; 87493; 89055 ==

== ENCOUNTER 2017-09-23 12:11 | Emergency (ER) | payer MEDICARE, MEDICAID ==
[2017-09-23] MEDS ORDERED: BUTALB/ACETAMINOPHEN/CAFFEINE 1 TAB EACH PO ONE (12:50)
--- NOTE | 2017-09-23 12:52 | ER Document Report ---
ED Headache - General Chief Complaint: Headache Stated Complaint: HEADACHE Time Seen by Provider: 09/23/17 12:49 Mode of Arrival: Ambulatory Information source: Patient Notes: Patient complains of headache. She states that she had a stroke back in October. She states this was a TIA. It did not leave her with any residual deficits. She states she woke up this morning with a headache. It is located on the right side and it is constant. It is moderate to severe. It is throbbing. It does not radiate. Nothing makes it better or worse. She denies any recent cough cold or congestion. No rashes. No known tick bites. No known trauma. TRAVEL OUTSIDE OF THE [place] IN LAST 30 DAYS: No - Related Data Allergies/Adverse Reactions: exenatide [From Byetta] Allergy (Severe, Verified 09/23/17 12:11) swelling NSAIDS (Non-Steroidal Anti-Inflamma Allergy (Severe, Verified 09/23/17 12:11) Anaphylaxis Past Medical History - General Information source: Patient - Social History Smoking Status: Current Every Day Smoker Chew tobacco use (# tins/day): No Frequency of alcohol use: None Drug Abuse: None Family History: DM, Hypertension Patient has suicidal ideation: No Patient has homicidal ideation: No - Past Medical History Cardiac Medical History: Reports: Hx Hypercholesterolemia Denies: Hx Coronary Artery Disease, Hx Heart Attack, Hx Hypertension Pulmonary Medical History: Reports: Hx Bronchitis, Hx COPD, Hx Pneumonia Denies: Hx Asthma, Hx Tuberculosis Neurological Medical History: Denies: Hx Cerebrovascular Accident, Hx Migraine, Hx Seizures Endocrine Medical History: Reports: Hx Diabetes Mellitus Type 2 - IDDM Renal/ Medical History: Denies: Hx Peritoneal Dialysis Malignancy Medical History: Reports: Hx Cervical Cancer GI Medical History: Reports: Hx Gastroesophageal Reflux Disease Musculoskeltal Medical History: Denies Hx Arthritis Psychiatric Medical History: Reports: Hx Anxiety, Hx Depression, Hx Post Traumatic Stress Disorder Past Surgical History: Reports: Hx Section - x2, Hx Hysterectomy, Hx Orthopedic Surgery - BL elbow. - Immunizations Immunizations up to date: No Hx Diphtheria, Pertussis, Tetanus Vaccination: No Hx Pneumococcal Vaccination: 10/11/10 Review of Systems - Review of Systems Constitutional: denies: Chills, Fever EENT: denies: Nose congestion, Nose discharge, Sinus pressure, Sinus discharge Respiratory: denies: Cough, Short of breath Gastrointestinal: denies: Diarrhea, Nausea, Vomiting -: Yes All other systems reviewed and negative Physical Exam - Vital signs Vitals: Temp Pulse Resp BP Pulse Ox 98.8 F 97 16 140/84 H 97 09/23/17 12:15 09/23/17 12:15 09/23/17 12:15 09/23/17 12:15 09/23/17 12:15 Interpretation: Hypertensive - General General appearance: Appears well, Alert - HEENT Head: Normocephalic, Atraumatic Eyes: Normal Pupils: PERRL - Respiratory Respiratory status: No respiratory distress Chest status: Nontender Breath sounds: Normal Chest palpation: Normal - Cardiovascular Rhythm: Regular Heart sounds: Normal auscultation Murmur: No - Abdominal Inspection: Normal Distension: No distension Bowel sounds: Normal Tenderness: Nontender Organomegaly: No organomegaly - Back Back: Normal, Nontender - Extremities General upper extremity: Normal inspection, Nontender, Normal color, Normal ROM , Normal temperature General lower extremity: Normal inspection, Nontender, Normal color, Normal ROM , Normal temperature, Normal weight bearing. 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 There is evidence of sphenoid sinus disease. Discharge - Discharge Clinical Impression: Sphenoid sinusitis Qualifiers: Chronicity: acute Recurrence: non-recurrent Qualified Code(s): J01.30 - Acute sphenoidal sinusitis, unspecified Condition: Stable Disposition: HOME, SELF-CARE Instructions: Sinusitis ([facility]) Additional Instructions: Please call your doctor as soon as possible to arrange follow-up. Your blood pressure is mildly elevated. Please have this rechecked within 1 week by your doctor Prescriptions: Butalb/Acetaminophen/Caffeine [Fioricet (50-325-40 mg) Tablet] 1 - 2 tab PO Q4H #20 tab Cefdinir 300 mg PO BID 10 Days #20 capsule Forms: Elevated Blood Pressure
--- NOTE | 2017-09-23 13:46 | RADIOLOGY REPORT (SQ) ---
EXAM DESCRIPTION: CT HEAD WITHOUT COMPLETED DATE/TIME: 09/23/2017 1:04 pm REASON FOR STUDY: headache COMPARISON: 11/02/2016 TECHNIQUE: Axial images acquired through the brain without intravenous contrast. Images reviewed wi th bone, brain and subdural windows. Images stored on PACS. All CT scanners at this facility use dose modulation, iterative reconstruction, and/or weight based d osing when appropriate to reduce radiation dose to as low as reasonably achievable (ALARA). [facility]: Dose Right [facility]: CareDose [facility]: Dose Right [facility]: Teradose 4D [facility]: Smart Technologies RADIATION DOSE: CT Rad equipment meets quality standard of care and radiation dose reduction techniq ues were employed. CTDIvol: 64.6 mGy. DLP: 1034 mGy-cm. mGy. LIMITATIONS: None. FINDINGS: VENTRICLES: Normal size and contour. CEREBRUM: Move once again of right occipital infarct is seen. No acute hemorrhage or infarction is s een. Ventricles are normal. There is no midline shift or mass effect. Normal marroquin/white matter diff erentiation. No areas of low density in the white matter. CEREBELLUM: No masses. No hemorrhage. No alteration of density. No evidence for acute infarction. EXTRAAXIAL SPACES: No fluid collections. No masses. ORBITS AND GLOBE: No intra- or extraconal masses. Normal contour of globe without masses. CALVARIUM: No fracture. PARANASAL SINUSES: Mucoperiosteal thickening is seen in the left sphenoid sinus. SOFT TISSUES: No mass or hematoma. OTHER: No other significant finding. 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 No acute intracranial finding. EVIDENCE OF ACUTE STROKE: NO. COMMENT: Quality ID # [id number]: Final reports with documentation of one or more dose reduction techniques (e.g., Automated exposure control, adjustment of the mA and/or kV according to patient size, use of iterative reconstruction technique) TECHNICAL DOCUMENTATION: JOB ID: [id number] [employer]- All Rights Reserved
[2017-09-23 14:40] VITALS: BP 135/87
== END 2017-09-23 14:40 | disposition home or self-care (01) ==
LOC: ER 12:11
DX: J01.30 Acute sphenoidal sinusitis, unspecified (principal); R51 Headache; J44.9 Chronic obstructive pulmonary disease, unspecified; E11.9 Type 2 diabetes mellitus without complications; F17.200 Nicotine dependence, unspecified, uncomplicated; Z86.73 Personal history of transient ischemic attack (TIA), and cerebral infarction without residual deficits; Z87.892 Personal history of anaphylaxis; Z88.8 Allergy status to other drugs, medicaments and biological substances; Z85.41 Personal history of malignant neoplasm of cervix uteri
CPT/HCPCS: 99284; 70450; A9270; J3490

== ENCOUNTER 2018-03-03 16:55 | Emergency (ER) | payer MEDICARE, MEDICAID ==
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
--- NOTE | 2018-03-03 18:18 | RADIOLOGY REPORT (SQ) ---
EXAM DESCRIPTION: FINGER LEFT COMPLETED DATE/TIME: 03/03/2018 6:06 pm REASON FOR STUDY: 4th finger injury COMPARISON: None. NUMBER OF VIEWS: Three views. TECHNIQUE: AP, lateral, and oblique images acquired of the left fourth finger. LIMITATIONS: None. FINDINGS: MINERALIZATION: Normal. BONES: No acute fracture or dislocation. No worrisome bone lesions. SOFT TISSUES: No soft tissue swelling. No foreign body. OTHER: No other significant finding. IMPRESSION: NO RADIOGRAPHIC EVIDENCE OF ACUTE INJURY. COMMENT: SITE OF TRAUMA/COMPLAINT MARKED/STAMP COMPLETED: None TECHNICAL DOCUMENTATION: JOB ID: [id number] [employer]- All Rights Reserved Reading location - IP/workstation name: [email or web address]
[2018-03-03 18:35] VITALS: BP 91/55
== END 2018-03-03 18:41 | disposition home or self-care (01) ==
LOC: ER 16:55
DX: S63.615A Unspecified sprain of left ring finger, initial encounter (principal); M79.645 Pain in left finger(s); Y04.8XXA Assault by other bodily force, initial encounter; J44.9 Chronic obstructive pulmonary disease, unspecified; E11.9 Type 2 diabetes mellitus without complications; F17.200 Nicotine dependence, unspecified, uncomplicated; Z79.4 Long term (current) use of insulin; Z85.41 Personal history of malignant neoplasm of cervix uteri
CPT/HCPCS: 99283

== ENCOUNTER 2018-04-10 15:32 | Emergency (ER) | payer MEDICARE, MEDICAID ==
--- NOTE | 2018-04-10 16:41 | ER Document Report ---
HPI - HPI Pain Level: 5 Notes: Patient is a 52-year-old female who presents to the ED complaining of nasal congestion/discharge, sore throat, dry nonproductive cough, 2 days. Patient states that she is still eating and drinking without difficulties, but does have a decreased p.o. intake. She is still urinating normally having normal bowel movements. PMH of IDDM. She denies any other significant past medical history including cardiopulmonary history and immunocompromised conditions. Patient denies any IV drug use. Denies any headache, neck pain, chest pain, palpitations, syncope, shortness of breath, wheeze, dyspnea, abdominal pain, nausea/vomiting/diarrhea, urinary retention, dysuria, hematuria, or rash. - ROS Systems Reviewed and Negative: Yes All other systems reviewed and negative - REPRODUCTIVE Reproductive: DENIES: : Past Medical History - Social History Smoking Status: Unknown if Ever Smoked Family History: DM, Hypertension - Past Medical History Cardiac Medical History: Reports: Hx Hypercholesterolemia Denies: Hx Coronary Artery Disease, Hx Heart Attack, Hx Hypertension Pulmonary Medical History: Reports: Hx Bronchitis, Hx COPD, Hx Pneumonia Denies: Hx Asthma, Hx Tuberculosis Neurological Medical History: Denies: Hx Cerebrovascular Accident, Hx Migraine, Hx Seizures Endocrine Medical History: Reports: Hx Diabetes Mellitus Type 2 - IDDM Renal/ Medical History: Denies: Hx Peritoneal Dialysis Malignancy Medical History: Reports: Hx Cervical Cancer GI Medical History: Reports: Hx Gastroesophageal Reflux Disease Musculoskeltal Medical History: Denies Hx Arthritis Psychiatric Medical History: Reports: Hx Anxiety, Hx Depression, Hx Post Traumatic Stress Disorder Past Surgical History: Reports: Hx Section - x2, Hx Hysterectomy, Hx Orthopedic Surgery - BL elbow. - Immunizations Immunizations up to date: No Hx Diphtheria, Pertussis, Tetanus Vaccination: No Hx Pneumococcal Vaccination: 10/11/10 Vertical Provider Document - CONSTITUTIONAL Agree With Documented VS: Yes Notes: PHYSICAL EXAMINATION: GENERAL: Well-appearing, well-nourished and in no acute distress. A&Ox4. Answers questions appropriately. Moves comfortably w/o notable distress HEAD: Atraumatic, normocephalic. EYES: Pupils equal round and reactive to light, extraocular movements intact, sclera anicteric, conjunctiva are normal. ENT: EAC clear b/l. TM's intact b/l without erythema, fluid, or perforation. Nares patent and with clear discharge. oropharynx mild erythema without exudates. 1+ tonsilar hypertrophy with mild erythema no exudate. No palatine shift. Uvula midline. No tongue protrusion. No drooling, hoarseness, or airway compromise. Moist mucous membranes. No sinus tenderness. NECK: Normal range of motion, supple without lymphadenopathy. No rigidity/ meningismus. LUNGS: Breath sounds clear to auscultation bilaterally and equal. No wheezes rales or rhonchi. No retractions HEART: Regular rate and rhythm without murmurs, rubs, gallops. ABDOMEN: Soft, nontender, nondistended abdomen. No guarding, no rebound. No masses appreciated. Normal bowel sounds present. No CVA tenderness bilaterally. No hepatosplenomegaly. NEUROLOGICAL: Normal speech, normal gait. Normal sensory, motor exams PSYCH: Normal mood, normal affect. SKIN: Warm, Dry, normal turgor, no rashes or lesions noted. - INFECTION CONTROL TRAVEL OUTSIDE OF THE [place] IN LAST 30 DAYS: No Course - Re-evaluation Re-evalutation: 04/10/18 17:10 Patient is an afebrile, well-hydrated, 52-year-old female who presents to the ED with acute strep pharyngitis and URI. Vitals are acceptable. PE is otherwise unremarkable. Rapid strep positive. No other labs or imaging warranted at this time based on H&P. Patient has no significant cardiopulmonary or immunocompromised medical conditions. Patient's lungs are clear to auscultation bilaterally without tachycardia, hypoxia, or tachypnea. Patient is tolerating p.o. without any difficulties. Low suspicion for any meningitis, sepsis, peritonsillar/pharyngeal abscess, respiratory compromise, severe dehydration, or other emergent systemic condition at this time. Patient is aware this condition can change from initial presentation and she needs to monitor symptoms closely. Rx for Penicillin. Conservative measures otherwise for symptoms. Recheck with your PCM in 3-5 days. Return to the ED with any worsening/concerning symptoms otherwise as reviewed in discharge. Patient is in agreement. - Vital Signs Vital signs: Temp Pulse Resp BP Pulse Ox 99.2 F 97 20 119/79 98 04/10/18 15:39 04/10/18 15:39 04/10/18 15:39 04/10/18 15:39 04/10/18 15:39 Discharge - Discharge Clinical Impression: Acute streptococcal pharyngitis, Acute URI Condition: Stable Disposition: HOME, SELF-CARE Instructions: Upper Respiratory Illness ([facility]), Strep Throat ([facility]), Penicillin V K ([facility]) Additional Instructions: Maintain adequate fluid intake Take meds as directed Salt water gargles, throat sprays, mouthwash rinse, peroxide gargles tylenol/ibuprofen as needed New toothbrush tomorrow evening over the counter cold medication as needed for symptoms F/u: with your PCM in 3-5 days for a recheck Consider consult with ENT for ongoing/worsening symptoms Return to the ED with any fever, worsening pain, chest pain, neck pain/stiffness , shortness of breath, cough, drooling, trouble swallowing/breathing, abdominal pain, n/v/d, rash, or worsening/concerning symptoms otherwise. Prescriptions: Penicillin V Potassium [Penicillin Vk 250 mg Tablet] 500 mg PO BID #40 tablet Referrals: YANETH MEJÍA MD [Primary Care Provider] - Follow up in 3-5 days LUÍS SUTHERLAND DO [ASSOCIATE] - Follow up as needed
[2018-04-10 17:21] VITALS: BP 122/82
== END 2018-04-10 17:20 | disposition home or self-care (01) ==
LOC: ER 15:32
DX: J02.0 Streptococcal pharyngitis (principal); R09.81 Nasal congestion; R09.89 Other specified symptoms and signs involving the circulatory and respiratory systems; R05 Cough; E11.9 Type 2 diabetes mellitus without complications; Z79.4 Long term (current) use of insulin; J44.9 Chronic obstructive pulmonary disease, unspecified
CPT/HCPCS: 87880; 99283

== ENCOUNTER 2018-04-17 13:02 | Emergency (ER) | payer MEDICARE, MEDICAID ==
--- NOTE | 2018-04-17 13:32 | ER Document Report ---
ED GI/ - General Chief Complaint: Flank Pain Stated Complaint: SIDE PAIN Time Seen by Provider: 04/17/18 13:26 Notes: The patient is a 52-year-old female who presents with 2 days of intermittent left-sided flank pain radiating to her groin. No history of kidney stones. Denies nausea, vomiting, fevers, hematuria, dysuria, diarrhea, constipation, chest pain, shortness of breath or rash. TRAVEL OUTSIDE OF THE [place] IN LAST 30 DAYS: No - Related Data Allergies/Adverse Reactions: exenatide [From Byetta] Allergy (Severe, Verified 04/17/18 13:05) swelling NSAIDS (Non-Steroidal Anti-Inflamma Allergy (Severe, Verified 04/17/18 13:05) Anaphylaxis Past Medical History - General Information source: Patient - Social History Smoking Status: Current Every Day Smoker Family History: DM, Hypertension - Past Medical History Cardiac Medical History: Reports: Hx Hypercholesterolemia Denies: Hx Coronary Artery Disease, Hx Heart Attack, Hx Hypertension Pulmonary Medical History: Reports: Hx Bronchitis, Hx COPD, Hx Pneumonia Denies: Hx Asthma, Hx Tuberculosis Neurological Medical History: Denies: Hx Cerebrovascular Accident, Hx Migraine, Hx Seizures Endocrine Medical History: Reports: Hx Diabetes Mellitus Type 2 - IDDM Renal/ Medical History: Denies: Hx Peritoneal Dialysis Malignancy Medical History: Reports: Hx Cervical Cancer GI Medical History: Reports: Hx Gastroesophageal Reflux Disease Musculoskeltal Medical History: Denies Hx Arthritis Psychiatric Medical History: Reports: Hx Anxiety, Hx Depression, Hx Post Traumatic Stress Disorder Past Surgical History: Reports: Hx Section - x2, Hx Hysterectomy, Hx Orthopedic Surgery - BL elbow. - Immunizations Immunizations up to date: No Hx Diphtheria, Pertussis, Tetanus Vaccination: No Hx Pneumococcal Vaccination: 10/11/10 Review of Systems - Review of Systems Notes: REVIEW OF SYSTEMS: CONSTITUTIONAL: -fevers, -chills EENT: -eye pain, -difficulty swallowing, -nasal congestion CARDIOVASCULAR: -chest pain, -syncope. RESPIRATORY: -cough, -SOB GASTROINTESTINAL: -abdominal pain, -nausea, -vomiting, -diarrhea GENITOURINARY: -dysuria, -hematuria MUSCULOSKELETAL: +left flank pain, -neck pain SKIN: -rash or skin lesions. HEMATOLOGIC: -easy bruising or bleeding. LYMPHATIC: -swollen, enlarged glands. NEUROLOGICAL: -altered mental status or loss of consciousness, -headache, - neurologic symptoms PSYCHIATRIC: -anxiety, -depression. ALL OTHER SYSTEMS REVIEWED AND NEGATIVE. Physical Exam - Vital signs Vitals: Temp Pulse Resp BP Pulse Ox 98.9 F 90 18 124/89 H 97 04/17/18 13:31 04/17/18 13:31 04/17/18 13:31 04/17/18 13:31 04/17/18 13:31 - Notes Notes: PHYSICAL EXAMINATION: GENERAL: Well-appearing, well-nourished and in no acute distress. HEAD: Atraumatic, normocephalic. EYES: Pupils equal round and reactive to light, extraocular movements intact, sclera anicteric, conjunctiva are normal. ENT: nares patent, oropharynx clear without exudates. Moist mucous membranes. NECK: Normal range of motion, supple without lymphadenopathy LUNGS: Breath sounds clear to auscultation bilaterally and equal. No wheezes rales or rhonchi. HEART: Regular rate and rhythm without murmurs ABDOMEN: Soft, nontender, normoactive bowel sounds. No guarding, no rebound. No masses appreciated. BACK: No CVA tenderness. EXTREMITIES: Normal range of motion, no pitting or edema. No cyanosis. NEUROLOGICAL: Cranial nerves grossly intact. Normal speech, normal gait. Normal sensory and motor exams. PSYCH: Normal mood, normal affect. SKIN: Warm, Dry, normal turgor, no rashes or lesions noted. Course - Re-evaluation Re-evalutation: Patient appears very well is in no acute distress. Her abdomen is soft, nontender and she has no peritoneal signs. CT abdomen pelvis does not reveal any acute pathology and no kidney stones seen. Urinalysis does not show evidence of pyelonephritis or hematuria. Instructed her to continue to stay hydrated and follow-up with her primary care physician. - Vital Signs Vital signs: Temp Pulse Resp BP Pulse Ox 98.8 F 85 18 117/81 98 04/17/18 14:34 04/17/18 14:34 04/17/18 13:31 04/17/18 14:34 04/17/18 14:34 - Laboratory Laboratory results interpreted by me: 04/17/18 13:35 Urine Glucose (UA) >=500 H - Diagnostic Test Radiology reviewed: Image reviewed, Reports reviewed Radiology results interpreted by me: CT A/P: NAD Discharge - Discharge Clinical Impression: Left flank pain Condition: Stable Disposition: HOME, SELF-CARE Additional Instructions: Flank Pain We weren't able to prove an exact cause for your flank pain. Pain in the flank can be caused by a muscle strain or spasm. Sometimes a kidney stone causes pain, but can't be found on our tests. Infection in the kidney should be evident on a urine test. Early shingles can occasionally cause flank pain, without the rash that proves the diagnosis. On rare occasions, disease of the pancreas, aorta, spleen, or colon can create pain in the flank. At this time, there's no evidence of a dangerous condition, and it seems safe for you to be at home. If the pain goes away and does not come back, no further testing will be needed. If pain persists, or becomes more severe, we may need to repeat some tests or order additional new testing. Blood in the urine, urgency to urinate frequently, and pain that radiates to the groin can indicate a kidney stone. Fever may mean that the pain is due to infection, either of the kidney or the colon (diverticulitis). If your pain is early shingles, you should develop an eruption of blisters in the painful area within a few days. Call the doctor or return if you have pain that is spreading or becoming more severe, pain that does not resolve with time, fever, or any other new symptoms. Forms: Elevated Blood Pressure Referrals: YANETH MEJÍA MD [NO LOCAL MD] - Follow up as needed
[2018-04-17 14:04] LABS: APPEARANCE,URINE SLIGHTLY-CLOUDY; BILIRUBIN,URINE NEGATIVE (NEGATIVE); COLOR,URINE YELLOW; GLUCOSE, URINE >=500 mg/dL (NEGATIVE); KETONES,URINE NEGATIVE (NEGATIVE); LEUKOCYTE ESTERASE,URINE NEGATIVE (NEGATIVE); NITRITE,URINE NEGATIVE (NEGATIVE); PROTEIN,URINE NEGATIVE (NEGATIVE); URINE SPECIFIC GRAVITY 1.036; UROBILINOGEN,URINE NEGATIVE mg/dL (<2.0)
--- NOTE | 2018-04-17 14:19 | RADIOLOGY REPORT (SQ) ---
EXAM DESCRIPTION: CT LTD RENAL STONE PROTOCOL ON COMPLETED DATE/TIME: 04/17/2018 1:53 pm REASON FOR STUDY: right flank pain COMPARISON: None. TECHNIQUE: CT scan of the abdomen and pelvis performed without intravenous or oral contrast. Images reviewed with lung, soft tissue, and bone windows. Reconstructed coronal and sagittal MPR images revi ewed. All images stored on PACS. All CT scanners at this facility use dose modulation, iterative reconstruction, and/or weight based d osing when appropriate to reduce radiation dose to as low as reasonably achievable (ALARA). [facility]: Dose Right [facility]: CareDose [facility]: Dose Right [facility]: Teradose 4D [facility]: [employer] RADIATION DOSE: CT Rad equipment meets quality standard of care and radiation dose reduction techniq ues were employed. CTDIvol: 13.2 mGy. DLP: 710 mGy-cm.mGy. LIMITATIONS: None. FINDINGS: LOWER CHEST: No significant findings. No nodules or infiltrates. NON-CONTRASTED LIVER, SPLEEN, ADRENALS: Evaluation limited by lack of IV contrast. No identified sign ificant masses. PANCREAS: No masses. No peripancreatic inflammatory changes. GALLBLADDER: No identified stones by CT criteria. No inflammatory changes to suggest cholecystitis. RIGHT KIDNEY AND URETER: No suspicious masses. Assessment limited by lack of IV contrast. No signif icant calcifications. No hydronephrosis or hydroureter. LEFT KIDNEY AND URETER: No suspicious masses. Assessment limited by lack of IV contrast. No signifi cant calcifications. No hydronephrosis or hydroureter. AORTA AND RETROPERITONEUM: No aneurysm. No retroperitoneal masses or adenopathy. BOWEL AND PERITONEAL CAVITY: No obvious masses or inflammatory changes. No free fluid. APPENDIX: Normal. PELVIS, BLADDER, AND ABDOMINAL WALL:No abnormal masses. No free fluid. Bladder normal. BONES: No significant findings. OTHER: No other significant finding. IMPRESSION: NO SIGNIFICANT OR ACUTE PROCESS IN THE ABDOMEN OR PELVIS. COMMENT: Quality ID # [id number]: Final reports with documentation of one or more dose reduction techniques (e.g., Automated exposure control, adjustment of the mA and/or kV according to patient size, use of iterative reconstruction technique) TECHNICAL DOCUMENTATION: JOB ID: [id number] [employer]- All Rights Reserved Reading location - IP/workstation name: [email or web address]
[2018-04-17 14:36] VITALS: BP 117/81
== END 2018-04-17 14:35 | disposition home or self-care (01) ==
LOC: ER 13:02
DX: R10.9 Unspecified abdominal pain (principal); F17.200 Nicotine dependence, unspecified, uncomplicated; E78.00 Pure hypercholesterolemia, unspecified; E11.9 Type 2 diabetes mellitus without complications; Z79.4 Long term (current) use of insulin; Z85.41 Personal history of malignant neoplasm of cervix uteri; Z90.710 Acquired absence of both cervix and uterus
CPT/HCPCS: 76380; 81001; 99284

== ENCOUNTER 2019-12-11 14:51 | Observation (INO) | payer MEDICAID, MEDICARE ==
[2019-12-11] MEDS ORDERED: NORMAL SALINE 1000 ML 2,000 ML IV ONE (16:01)
--- NOTE | 2019-12-11 16:04 | ER Document Report ---
ED Medical Screen (RME) - General Chief Complaint: High Blood Sugar Stated Complaint: BLOOD SUGAR ISSUE Time Seen by Provider: 12/11/19 15:56 Notes: Patient is a 54-year-old female who presents to the emergency department with high blood sugar. She has not taken her blood sugar at home, but states that she feels like it is high. Patient was in long term for 2 weeks and was just released. In long term, they did not give her her Lantus and metformin. Patient also has mental health complaints of anxiety, crying a lot, and generally not feeling well mentally. Exam: Accu-Chek reading high. I have greeted and performed a rapid initial assessment of this patient. A comprehensive ED assessment and evaluation of the patient, analysis of test results and completion of medical decision making process will be conducted by an additional ED providers. TRAVEL OUTSIDE OF THE [place] IN LAST 30 DAYS: No - Related Data Allergies/Adverse Reactions: exenatide [From [employer]] Allergy (Severe, Verified 04/17/18 13:05) swelling NSAIDS (Non-Steroidal Anti-Inflamma Allergy (Severe, Verified 04/17/18 13:05) Anaphylaxis Past Medical History - Past Medical History Cardiac Medical History: Reports: Hx Hypercholesterolemia Denies: Hx Coronary Artery Disease, Hx Heart Attack, Hx Hypertension Pulmonary Medical History: Reports: Hx Bronchitis, Hx COPD, Hx Pneumonia Denies: Hx Asthma, Hx Tuberculosis Neurological Medical History: Denies: Hx Cerebrovascular Accident, Hx Migraine, Hx Seizures Endocrine Medical History: Reports: Hx Diabetes Mellitus Type 2 - IDDM Renal/ Medical History: Denies: Hx Peritoneal Dialysis Malignancy Medical History: Reports: Hx Cervical Cancer GI Medical History: Reports: Hx Gastroesophageal Reflux Disease Musculoskeltal Medical History: Denies Hx Arthritis Psychiatric Medical History: Reports: Hx Anxiety, Hx Depression, Hx Post Traumatic Stress Disorder Past Surgical History: Reports: Hx Section - x2, Hx Hysterectomy, Hx Orthopedic Surgery - BL elbow. - Immunizations Immunizations up to date: No Hx Diphtheria, Pertussis, Tetanus Vaccination: No Physical Exam - Vital signs Vitals: Temp Pulse Resp BP Pulse Ox 98.2 F 118 H 20 135/78 H 98 12/11/19 15:00 12/11/19 15:00 12/11/19 15:00 12/11/19 15:00 12/11/19 15:00 Course - Vital Signs Vital signs: Temp Pulse Resp BP Pulse Ox 98.2 F 118 H 20 135/78 H 98 12/11/19 15:00 12/11/19 15:00 12/11/19 15:00 12/11/19 15:00 12/11/19 15:00
[2019-12-11 16:44] LABS: ABSOLUTE BASOPHILS # (AUTO) 0.1 10^3/uL (0.0-0.2); ABSOLUTE EOSINOPHILS # (AUTO) 0.2 10^3/uL (0.0-0.6); ABSOLUTE MONOCYTES (AUTO) 0.4 10^3/uL (0.1-1.4); ABSOLUTE NEUT (AUTO) 4.9 10^3/uL (1.7-8.2); BASOPHILS % (AUTO) 1.7 % (0-2); EOSINOPHILS % (AUTO) 2.7 % (0-6); HEMATOCRIT 41.2 % (36.0-47.0); HEMOGLOBIN 14.7 g/dL (12.0-15.5); LYMPHOCYTES % (AUTO) 26.8 % (13-45); MEAN CORPUSCULAR HEMOGLOBIN 31.7 pg (27.0-33.4); MEAN CORPUSCULAR HGB CONC 35.6 g/dL (32.0-36.0); MEAN CORPUSCULAR VOLUME 89 fl (80-97); MONOCYTES % (AUTO) 5.1 % (3-13); PLATELET COUNT 211 10^3/uL (150-450); RED BLOOD COUNT 4.64 10^6/uL (3.72-5.28); RED CELL DISTRIBUTION WIDTH 14.1 % (11.5-14.0); SEGMENTED NEUTROPHILS % (AUTO) 63.7 % (42-78); TOTAL CELLS COUNTED % (AUTO) 100 %; WHITE BLOOD COUNT 7.7 10^3/uL (4.0-10.5)
[2019-12-11 16:46] LABS: VENOUS BLOOD BASE EXCESS -2.5 mmol/L; VENOUS BLOOD HCO3 22.6 mmol/L (20-32); VENOUS BLOOD PCO2 40.5 mmHg (35-63); VENOUS BLOOD PH 7.37 (7.30-7.42)
--- NOTE | 2019-12-11 16:55 | ER Document Report ---
ED General - General Chief Complaint: High Blood Sugar Stated Complaint: BLOOD SUGAR ISSUE Time Seen by Provider: 12/11/19 15:56 Notes: HPI: 54-year-old female who supposedly is an insulin-dependent diabetic who states that she was in senior living for 6 months and they did not provide her 20 units of Lantus at night or her metformin twice daily. She states she has gotten out recently and felt as if her blood sugar was high. She however denies any nausea, vomiting, abdominal pain, diarrhea, chest pain or shortness of breath. ROS: See HPI All other review of systems reviewed and otherwise negative Reviewed vital signs and nursing note as charted by RN. PHYSICAL EXAM: CONSTITUTIONAL: Alert and oriented and responds appropriately to questions. Well-appearing; well-nourished HEAD: Normocephalic; atraumatic EYES: PERRL; Conjunctivae clear, sclerae non-icteric ENT: Normal nose; no rhinorrhea; moist mucous membranes; pharynx without lesions noted NECK: Supple without meningismus; non-tender; no cervical lymphadenopathy, no masses CARD: Regular rate and rhythm; no murmurs; symmetric distal pulses RESP: Normal chest excursion without splinting or tachypnea; breath sounds clear and equal bilaterally; no wheezes, no rhonchi, no rales ABD/GI: Normal bowel sounds; non-distended; soft, non-tender; no palpable organomegaly or masses BACK: The back appears normal and is non-tender to palpation EXT: Normal ROM in all joints; non-tender to palpation; no edema SKIN: No acute lesions noted NEURO: CN 2-12 intact; 5/5 bilateral upper and lower extremity strength with sensation intact to light touch PSYCH: The patient's mood and manner are appropriate. Grooming and personal hygiene are appropriate. TRAVEL OUTSIDE OF THE [place] IN LAST 30 DAYS: No - Related Data Allergies/Adverse Reactions: exenatide [From [place]] Allergy (Severe, Verified 04/17/18 13:05) swelling NSAIDS (Non-Steroidal Anti-Inflamma Allergy (Severe, Verified 04/17/18 13:05) Anaphylaxis Past Medical History - Social History Smoking Status: Current Every Day Smoker Family History: DM, Hypertension Patient has suicidal ideation: No Patient has homicidal ideation: No - Past Medical History Cardiac Medical History: Reports: Hx Hypercholesterolemia Denies: Hx Coronary Artery Disease, Hx Heart Attack, Hx Hypertension Pulmonary Medical History: Reports: Hx Bronchitis, Hx COPD, Hx Pneumonia Denies: Hx Asthma, Hx Tuberculosis Neurological Medical History: Denies: Hx Cerebrovascular Accident, Hx Migraine, Hx Seizures Endocrine Medical History: Reports: Hx Diabetes Mellitus Type 2 - IDDM Renal/ Medical History: Denies: Hx Peritoneal Dialysis Malignancy Medical History: Reports: Hx Cervical Cancer GI Medical History: Reports: Hx Gastroesophageal Reflux Disease Musculoskeletal Medical History: Denies Hx Arthritis Psychiatric Medical History: Reports: Hx Anxiety, Hx Depression, Hx Post Traumatic Stress Disorder Past Surgical History: Reports: Hx Section - x2, Hx Hysterectomy, Hx Orthopedic Surgery - BL elbow. - Immunizations Immunizations up to date: No Hx Diphtheria, Pertussis, Tetanus Vaccination: No Hx Pneumococcal Vaccination: 10/11/10 Physical Exam - Vital signs Vitals: Temp Pulse Resp BP Pulse Ox 98.2 F 118 H 20 135/78 H 98 12/11/19 15:00 12/11/19 15:00 12/11/19 15:00 12/11/19 15:00 12/11/19 15:00 Course - Re-evaluation Re-evalutation: Given the history and physical, basic labs including a venous blood gas was ordered in triage. Patient denies any symptomatology at this time. I have provided fluids. I will be able to refill the patient's metformin. We have provided the patient a list of outpatient providers for follow-up for which she states is her anxiety. She denies any auditory visual hallucinations. She denies any suicidal homicidal ideations. 12/11/19 16:54 Venous blood gas as recorded. 12/11/19 17:28 Labs as recorded. No signs of DKA but the patient's blood sugar is 700. We have provided 2 L of fluid. I will provide a dose of IV insulin. - Vital Signs Vital signs: Temp Pulse Resp BP Pulse Ox 98.2 F 118 H 22 H 132/77 H 98 12/11/19 15:00 12/11/19 15:00 12/11/19 16:23 12/11/19 16:23 12/11/19 16:31 - Laboratory Result Diagrams: 12/11/19 16:20 12/11/19 16:20 Laboratory results interpreted by me: 12/11/19 12/11/19 16:20 16:20 RDW 14.1 H Sodium 129.8 L Chloride 95 L Carbon Dioxide 19 L Glucose 694 H* Alkaline Phosphatase 174 H Salicylates < 1.0 L Acetaminophen < 10 L Discharge - Discharge Clinical Impression: Hyperglycemia Condition: Fair Disposition: ADMITTED OBSERVATION Unit Admitted: Medical Floor
[2019-12-11 17:08] LABS: ALBUMIN 4.2 g/dL (3.5-5.0); ALKALINE PHOSPHATASE 174 U/L (38-126); ANION GAP 16 (5-19); ASPARTATE AMINO TRANSFERASE 20 U/L (14-36); BILIRUBIN,TOTAL 0.5 mg/dL (0.2-1.3); BLOOD UREA NITROGEN 18 mg/dL (7-20); CALCIUM 9.4 mg/dL (8.4-10.2); CARBON DIOXIDE 19 mmol/L (22-30); CHLORIDE 95 mmol/L (98-107); POTASSIUM 4.3 mmol/L (3.6-5.0); TOTAL PROTEIN 7.1 g/dL (6.3-8.2)
[2019-12-11 17:15] LABS: ACETAMINOPHEN < 10 ug/mL (10-30); ALCOHOL < 10 mg/dL (NONE DETECTED)
[2019-12-11 17:16] LABS: GLUCOSE 694 mg/dL (75-110); SALICYLATE < 1.0 mg/dL (2.0-20.0)
[2019-12-11 17:25] LABS: APPEARANCE,URINE CLEAR; BILIRUBIN,URINE NEGATIVE (NEGATIVE); COLOR,URINE STRAW; GLUCOSE, URINE >=500 mg/dL (NEGATIVE); KETONES,URINE NEGATIVE (NEGATIVE); LEUKOCYTE ESTERASE,URINE NEGATIVE (NEGATIVE); NITRITE,URINE NEGATIVE (NEGATIVE); PROTEIN,URINE NEGATIVE (NEGATIVE); URINE SPECIFIC GRAVITY 1.029; UROBILINOGEN,URINE NEGATIVE mg/dL (<2.0)
[2019-12-11] MEDS ORDERED: INSULIN REG, HUMAN 100 UNIT/ML 3 ML VIAL (PYX) IV ONE ×2 (17:30→21:00)
[2019-12-11 17:45] LABS: URINE AMPHETAMINES SCREEN NEGATIVE; URINE BARBITURATES SCREEN NEGATIVE; URINE BENZODIAZEPINES SCREEN NEGATIVE; URINE COCAINE SCREEN NEGATIVE; URINE MARIJUANA (THC) SCREEN NEGATIVE; URINE METHADONE SCREEN NEGATIVE; URINE PHENCYCLIDINE SCREEN NEGATIVE
--- NOTE | 2019-12-11 17:50 | EKG REPORT ---
SEVERITY:- BORDERLINE ECG - SINUS RHYTHM BORDERLINE INFERIOR Q WAVES BORDERLINE T ABNORMALITIES, INFERIOR LEADS : Confirmed by: Jacob Shine MD 11-Dec-2019 17:50:23
[2019-12-11] MEDS ORDERED: DEXTROSE 40% GEL 15 GM TUBE PO PRN ×3 (18:25→18:46)
[2019-12-11] MEDS ORDERED: ONDANSETRON HCL INJ/PF 4 MG/2 ML SDV IV PRN (18:25)
[2019-12-11] MEDS ORDERED: GLUCAGON,HUMAN RECOMB 1 MG INJ SUBCUT PRN (18:25)
[2019-12-11] MEDS ORDERED: DEXTROSE 50%-WATER 25 GM/50 ML DISP.SYRIN IV PRN ×2 (18:25)
[2019-12-11] MEDS ORDERED: ACETAMINOPHEN 325 MG TABLET PO PRN (18:25)
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
[2019-12-11] MEDS ORDERED: NORMAL SALINE 1000 ML 500 ML IV ONE (18:46)
[2019-12-11] MEDS ORDERED: INFLUENZA QUAD (6MOS+) 2019-20 VAC 0.5 ML SYR IM ONE (20:45)
[2019-12-11] MEDS ORDERED: INSULIN LISPRO 100 UNIT/ML 3 ML VIAL SUBCUT SCH (22:00)
[2019-12-12] MEDS: INSULIN LISPRO 100 UNIT/ML 3 ML VIAL SUBCUT SCH ×6 (00:31→22:15)
[2019-12-12 05:46] LABS: ANION GAP 8 (5-19); BLOOD UREA NITROGEN 12 mg/dL (7-20); CALCIUM 8.8 mg/dL (8.4-10.2); CARBON DIOXIDE 23 mmol/L (22-30); CHLORIDE 105 mmol/L (98-107); GLUCOSE 252 mg/dL (75-110); POTASSIUM 3.8 mmol/L (3.6-5.0)
[2019-12-12] MEDS ORDERED: INSULIN NPH (ISOPHANE), HUMAN 100 UNIT/ML 3 ML SUBCUT SCH (08:00)
--- NOTE | 2019-12-12 08:30 | PSYCHOLOGICAL NOTE ---
Psych Note - Psych Note Date seen by psych provider: 12/11/19 Time seen by psych provider: 17:00 Psych Note: Clinician was asked to provided resources of outpatient mental health services to patient. Attending ED physician stated there was no need for full evaluation. Patient has been off her medications; however, she is unable to pay for them. It would be more beneficial for the patient to obtain an outpatient mental health provider to work on longer term medication management and/or therapeutic interventions so there is not a significant gap in medications and services that can cause an increase in symptoms and other possible negative side effect that can occur when stopping psychiatric medications abruptly. The patient denies any current symptoms that is causing distress in any of her psychiatric domains when clinician provided resources.
[2019-12-12] MEDS: HUM INSULIN NPH/REG INSULIN HM 100 UNIT/1 ML 3 ML SUBCUT SCH ×2 (09:43→16:21)
[2019-12-12] MEDS: ENOXAPARIN SODIUM INJ 40 MG/0.4 ML DISP.SYRIN SUBCUT SCH (09:43)
[2019-12-12] MEDS: METFORMIN HCL 500 MG TABLET PO SCH ×2 (09:43→16:21)
--- NOTE | 2019-12-12 13:14 | PDOC PROGRESS REPORT ---
Subjective Progress Note for:: 12/12/19 Reason For Visit: HYPERGLYCEMIA 12/12/2019 Patient admitted for hyperglycemia, patient noncompliance, inability to pay for medications. Physical Exam Vital Signs: Temp Pulse Resp BP Pulse Ox 98.2 F 77 12 134/84 H 99 12/12/19 08:17 12/12/19 08:17 12/12/19 08:17 12/12/19 08:17 12/12/19 08:17 Intake & Output 12/11/19 12/12/19 12/13/19 06:59 06:59 06:59 Intake Total 2500 Balance 2500 Weight 89.3 kg General appearance: PRESENT: no acute distress Respiratory exam: PRESENT: clear to auscultation bri. ABSENT: rales, rhonchi, wheezes Cardiovascular exam: PRESENT: RRR. ABSENT: diastolic murmur, rubs, systolic murmur Neurological exam: PRESENT: alert, awake, oriented to person, oriented to place, oriented to time, oriented to situation, CN II-XII grossly intact. ABSENT: motor sensory deficit Psychiatric exam: PRESENT: appropriate affect, normal mood. ABSENT: homicidal ideation, suicidal ideation Results Laboratory Results: 12/11/19 16:20 12/12/19 04:13 12/11/19 12/11/19 12/11/19 16:20 16:20 16:20 WBC 7.7 RBC 4.64 Hgb 14.7 Hct 41.2 MCV 89 MCH 31.7 MCHC 35.6 RDW 14.1 H Plt Count 211 Seg Neutrophils % 63.7 VBG pH 7.37 VBG pCO2 40.5 VBG HCO3 22.6 VBG Base Excess -2.5 Sodium 129.8 L Potassium 4.3 Chloride 95 L Carbon Dioxide 19 L Anion Gap 16 BUN 18 Creatinine 0.84 Est GFR ( Amer) > 60 Glucose 694 H* Calcium 9.4 Magnesium Total Bilirubin 0.5 AST 20 Alkaline Phosphatase 174 H Total Protein 7.1 Albumin 4.2 Urine Color Urine Appearance Urine pH Ur Specific [place] Urine Protein Urine Glucose (UA) Urine Ketones Urine Blood Urine Nitrite Ur Leukocyte Esterase Urine WBC (Auto) Urine RBC (Auto) 12/11/19 12/12/19 17:00 04:13 WBC RBC Hgb Hct MCV MCH MCHC RDW Plt Count Seg Neutrophils % VBG pH VBG pCO2 VBG HCO3 VBG Base Excess Sodium 135.9 L Potassium 3.8 Chloride 105 Carbon Dioxide 23 Anion Gap 8 BUN 12 Creatinine 0.57 Est GFR ( Amer) > 60 Glucose 252 H Calcium 8.8 Magnesium 1.7 Total Bilirubin AST Alkaline Phosphatase Total Protein Albumin Urine Color STRAW Urine Appearance CLEAR Urine pH 5.0 Ur Specific [place] 1.029 Urine Protein NEGATIVE Urine Glucose (UA) >=500 H Urine Ketones NEGATIVE Urine Blood NEGATIVE Urine Nitrite NEGATIVE Ur Leukocyte Esterase NEGATIVE Urine WBC (Auto) 0 Urine RBC (Auto) 0 Assessment and Plan - Diagnosis (2) Depression Qualifiers: Major depression recurrence: recurrent Active/Remission status: currently active Major depression episode severity: moderate Is this a current diagnosis for this admission?: Yes (3) PTSD (post-traumatic stress disorder) Is this a current diagnosis for this admission?: Yes (4) Patient noncompliance Is this a current diagnosis for this admission?: Yes - Plan Summary Summary: 12/12/2019 Pressure 98 2 pulse 77 blood pressure 134/84 O2 sat 99% on room air Globin A1 C was 8.1 Patient's fingerstick blood sugars are now down in the 200s Currently on Glucophage thousand milligrams twice daily and a sliding scale of insulin Also 70/30 with 30 units twice daily Going to consult discharge planning. Patient states she is going to the homeless nursing home when she is discharged. Patient may need financial assistance if it is available Anticipate discharge tomorrow - Time Time Spent with patient: 25-34 minutes
[2019-12-12] MEDS ORDERED: BUSPIRONE HCL 10 MG TABLET PO ONE (13:15)
[2019-12-12] MEDS: FLUOXETINE HCL 20 MG CAPSULE PO SCH (13:43)
[2019-12-12] MEDS ORDERED: INSULIN NPH (ISOPHANE), HUMAN 100 UNIT/ML 3 ML SUBCUT ONE (22:15)
[2019-12-13] MEDS: METFORMIN HCL 500 MG TABLET PO SCH (08:12)
[2019-12-13] MEDS: INSULIN LISPRO 100 UNIT/ML 3 ML VIAL SUBCUT SCH (08:12)
[2019-12-13] MEDS: HUM INSULIN NPH/REG INSULIN HM 100 UNIT/1 ML 3 ML SUBCUT SCH (08:13)
[2019-12-13] MEDS: FLUOXETINE HCL 20 MG CAPSULE PO SCH (10:03)
[2019-12-13] MEDS: ENOXAPARIN SODIUM INJ 40 MG/0.4 ML DISP.SYRIN SUBCUT SCH (10:03)
[2019-12-13 10:29] VITALS: BP 114/67
--- NOTE | 2019-12-13 15:56 | PDOC DISCHARGE SUMMARY ---
Impression - Admit/DC Date/PCP Admission Date/Primary Care Provider: 12/11/19 17:40 Discharge Date: 12/13/19 - Discharge Diagnosis (1) Hyperglycemia Is this a current diagnosis for this admission?: Yes (2) Depression Is this a current diagnosis for this admission?: Yes (3) PTSD (post-traumatic stress disorder) Is this a current diagnosis for this admission?: Yes (4) Patient noncompliance Is this a current diagnosis for this admission?: Yes - Assessment Summary: 12/12/2019 Pressure 98 2 pulse 77 blood pressure 134/84 O2 sat 99% on room air Globin A1 C was 8.1 Patient's fingerstick blood sugars are now down in the 200s Currently on Glucophage thousand milligrams twice daily and a sliding scale of insulin Also 70/30 with 30 units twice daily Going to consult discharge planning. Patient states she is going to the homeless residential when she is discharged. Patient may need financial assistance if it is available Anticipate discharge tomorrow 12/13/2019 Patient is medically stable to be discharged Sent out on a prescription for BuSpar 10 mg daily metformin thousand milligrams twice daily 70/30 insulin 30 units twice daily Prozac 20 mg a day sHe is going to the homeless residential She has insurance for her medications Discharge planning has seen the patient Patient's blood sugars are trending down - Additional Information Resuscitation Status: Full Code Discharge Diet: Diabetic Discharge Activity: Activity As Tolerated Referrals: JUAN WHALEY MD [ACTIVE STAFF] - 12/21/19 10:30 am Prescriptions: Buspirone HCl [Buspar 10 mg Tablet] 10 mg PO DAILY 30 Days #30 Metformin HCl [Glucophage 500 mg Tablet] 1,000 mg PO BIDACBS 30 Days #120 tablet Hum Insulin NPH/Reg Insulin Hm [Insulin 70-30 (NPH/Reg) 100 unit/mL] 30 unit SUBCUT BIDACBS 30 Days #30 unit Fluoxetine HCl [Prozac] 20 mg PO DAILY 30 Days #30 Fluoxetine HCl [Prozac 20 mg Capsule] 20 mg PO DAILY #30 capsule Home Medications: Zolpidem Tartrate [Ambien] 10 mg PO QHS 11/02/16 Hum Insulin NPH/Reg Insulin Hm [Insulin 70-30 (NPH/Reg) 100 unit/mL] 20 units SQ BID 12/11/19 Metformin HCl [Glucophage] 1,000 mg PO BID 12/11/19 Acetaminophen [Tylenol 325 mg Tablet] 650 mg PO Q4HP PRN tablet 12/13/19 Buspirone HCl [Buspar 10 mg Tablet] 10 mg PO DAILY 30 Days #30 12/13/19 Fluoxetine HCl [Prozac 20 mg Capsule] 20 mg PO DAILY #30 capsule 12/13/19 Fluoxetine HCl [Prozac] 20 mg PO DAILY 30 Days #30 12/13/19 Hum Insulin NPH/Reg Insulin Hm [Insulin 70-30 (NPH/Reg) 100 unit/mL] 30 unit SUBCUT BIDACBS 30 Days #30 unit 12/13/19 Metformin HCl [Glucophage 500 mg Tablet] 1,000 mg PO BIDACBS 30 Days #120 tablet 12/13/19 History of Present Illiness History of Present Illness: NISSA TUTTLE is a 54 year old female Physical Exam Vital Signs: Temp Pulse Resp BP Pulse Ox 98.1 F 83 16 114/67 98 12/13/19 10:27 12/13/19 10:27 12/13/19 10:27 12/13/19 10:27 12/13/19 10:27 Intake & Output 12/12/19 12/13/19 12/14/19 06:59 06:59 06:59 Intake Total 2500 966 Balance 2500 966 Weight 89.3 kg 88.4 kg Results Laboratory Results: WBC 7.7 10^3/uL (4.0-10.5) 12/11/19 16:20 RBC 4.64 10^6/uL (3.72-5.28) 12/11/19 16:20 Hgb 14.7 g/dL (12.0-15.5) 12/11/19 16:20 Hct 41.2 % (36.0-47.0) 12/11/19 16:20 MCV 89 fl (80-97) 12/11/19 16:20 MCH 31.7 pg (27.0-33.4) 12/11/19 16:20 MCHC 35.6 g/dL (32.0-36.0) 12/11/19 16:20 RDW 14.1 % (11.5-14.0) H 12/11/19 16:20 Plt Count 211 10^3/uL (150-450) 12/11/19 16:20 Lymph % (Auto) 26.8 % (13-45) 12/11/19 16:20 [place] % (Auto) 5.1 % (3-13) 12/11/19 16:20 Eos % (Auto) 2.7 % (0-6) 12/11/19 16:20 Baso % (Auto) 1.7 % (0-2) 12/11/19 16:20 Absolute Neuts (auto) 4.9 10^3/uL (1.7-8.2) 12/11/19 16:20 Absolute Lymphs (auto) 2.0 10^3/uL (0.5-4.7) 12/11/19 16:20 Absolute Monos (auto) 0.4 10^3/uL (0.1-1.4) 12/11/19 16:20 Absolute Eos (auto) 0.2 10^3/uL (0.0-0.6) 12/11/19 16:20 Absolute Basos (auto) 0.1 10^3/uL (0.0-0.2) 12/11/19 16:20 Seg Neutrophils % 63.7 % (42-78) 12/11/19 16:20 VBG pH 7.37 (7.30-7.42) 12/11/19 16:20 VBG pCO2 40.5 mmHg (35-63) 12/11/19 16:20 VBG HCO3 22.6 mmol/L (20-32) 12/11/19 16:20 VBG Base Excess -2.5 mmol/L 12/11/19 16:20 Sodium 135.9 mmol/L (137-145) L 12/12/19 04:13 Potassium 3.8 mmol/L (3.6-5.0) 12/12/19 04:13 Chloride 105 mmol/L (98-107) 12/12/19 04:13 Carbon Dioxide 23 mmol/L (22-30) 12/12/19 04:13 Anion Gap 8 (5-19) 12/12/19 04:13 BUN 12 mg/dL (7-20) 12/12/19 04:13 Creatinine 0.57 mg/dL (0.52-1.25) 12/12/19 04:13 Est GFR ( Amer) > 60 (>60) 12/12/19 04:13 Est GFR (MDRD) Non-Af > 60 (>60) 12/12/19 04:13 Glucose 252 mg/dL (75-110) H 12/12/19 04:13 POC Glucose 253 mg/dL (70-110) H 12/13/19 06:42 Hemoglobin A1c % 8.1 % (4.7-6.0) H 12/12/19 04:13 Calcium 8.8 mg/dL (8.4-10.2) 12/12/19 04:13 Magnesium 1.7 mg/dL (1.6-2.3) 12/12/19 04:13 Total Bilirubin 0.5 mg/dL (0.2-1.3) 12/11/19 16:20 Direct Bilirubin 0.0 mg/dL (0.0-0.4) 12/11/19 16:20 Neonat Total Bilirubin Not Reportable 12/11/19 16:20 Neonat Direct Bilirubin Not Reportable 12/11/19 16:20 Neonat Indirect Bili Not Reportable 12/11/19 16:20 AST 20 U/L (14-36) 12/11/19 16:20 ALT 25 U/L (<35) 12/11/19 16:20 Alkaline Phosphatase 174 U/L (38-126) H 12/11/19 16:20 Total Protein 7.1 g/dL (6.3-8.2) 12/11/19 16:20 Albumin 4.2 g/dL (3.5-5.0) 12/11/19 16:20 Urine Color STRAW 12/11/19 17:00 Urine Appearance CLEAR 12/11/19 17:00 Urine pH 5.0 (5.0-9.0) 12/11/19 17:00 Ur Specific [place] 1.029 12/11/19 17:00 Urine Protein NEGATIVE mg/dL (NEGATIVE) 12/11/19 17:00 Urine Glucose (UA) >=500 mg/dL (NEGATIVE) H 12/11/19 17:00 Urine Ketones NEGATIVE mg/dL (NEGATIVE) 12/11/19 17:00 Urine Blood NEGATIVE (NEGATIVE) 12/11/19 17:00 Urine Nitrite NEGATIVE (NEGATIVE) 12/11/19 17:00 Urine Bilirubin NEGATIVE (NEGATIVE) 12/11/19 17:00 Urine Urobilinogen NEGATIVE mg/dL (<2.0) 12/11/19 17:00 Ur Leukocyte Esterase NEGATIVE (NEGATIVE) 12/11/19 17:00 Urine WBC (Auto) 0 /HPF 12/11/19 17:00 Urine RBC (Auto) 0 /HPF 12/11/19 17:00 Squamous Epi Cells Auto <1 /HPF 12/11/19 17:00 Urine Mucus (Auto) RARE /LPF 12/11/19 17:00 Urine Ascorbic Acid NEGATIVE (NEGATIVE) 12/11/19 17:00 Salicylates < 1.0 mg/dL (2.0-20.0) L 12/11/19 16:20 Urine Opiates Screen NEGATIVE 12/11/19 17:00 Urine Methadone Screen NEGATIVE 12/11/19 17:00 Acetaminophen < 10 ug/mL (10-30) L 12/11/19 16:20 Ur Barbiturates Screen NEGATIVE 12/11/19 17:00 Ur Phencyclidine Scrn NEGATIVE 12/11/19 17:00 Ur Amphetamines Screen NEGATIVE 12/11/19 17:00 U Benzodiazepines Scrn NEGATIVE 12/11/19 17:00 Urine Cocaine Screen NEGATIVE 12/11/19 17:00 U Marijuana (THC) Screen NEGATIVE 12/11/19 17:00 Serum Alcohol < 10 mg/dL (NONE DETECTED) 12/11/19 16:20 Stroke Is this a Stroke Patient?: No Acute Heart Failure - Is this a Heart Failure Patient?: No
== END 2019-12-13 10:49 | disposition home or self-care (01) ==
LOC: ER 14:51 → EH 17:40 → 4N 19:39
PROVIDERS: ADMIT Internal Medicine; ATTEND Internal Medicine
DX: E11.65 Type 2 diabetes mellitus with hyperglycemia (principal); F33.1 Major depressive disorder, recurrent, moderate; F43.10 Post-traumatic stress disorder, unspecified; Z91.19 Patient's noncompliance with other medical treatment and regimen; Z59.0 Homelessness; F17.200 Nicotine dependence, unspecified, uncomplicated; F41.9 Anxiety disorder, unspecified; G47.00 Insomnia, unspecified; Z65.3 Problems related to other legal circumstances; Z62.810 Personal history of physical and sexual abuse in childhood; Z86.73 Personal history of transient ischemic attack (TIA), and cerebral infarction without residual deficits; Z83.3 Family history of diabetes mellitus; Z82.49 Family history of ischemic heart disease and other diseases of the circulatory system; Z59.6 Low income
CPT/HCPCS: 93005; 99285; 96360; 96361; 36415 ×2; 82962 ×3; 80307 ×4; 83735; 85025; 80048; 80053; 81001; 83036; 82803; 93010; G0378 ×4; J3490 ×6; J1815 ×6; J1650 ×2; J2405; J7030

== ENCOUNTER 2020-04-01 17:56 | Emergency (ER) | payer MEDICARE ==
[2020-04-01] MEDS ORDERED: ONDANSETRON HCL INJ/PF 4 MG/2 ML SDV IV ONE (18:50)
[2020-04-01] MEDS ORDERED: NORMAL SALINE 1000 ML 1,000 ML IV ONE (18:51)
--- NOTE | 2020-04-01 18:52 | ER Document Report ---
ED Medical Screen (RME) - General Chief Complaint: Rectal Bleeding Stated Complaint: VOMITING,RECTAL BLEEDING Time Seen by Provider: 04/01/20 18:42 Mode of Arrival: Ambulatory Information source: Patient Notes: 54-year-old female patient presenting to the emergency department chief complaint of nausea, vomiting, abdominal pain and bright red blood per rectum. Patient reports symptoms ongoing for the last 2 days. She denies any history of GI bleed in the past. She states her vomit is not dark or bloody. Her abdominal pain is generalized in the mid abdomen. Mild abdominal tenderness with palpation over the periumbilical area. No acute distress noted. I have greeted and performed a rapid initial assessment of this patient. A comprehensive ED assessment and evaluation of the patient, analysis of test results and completion of the medical decision making process will be conducted by additional ED providers. I have specifically instructed the patient or family members with the patient to immediately return to any nursing staff should anything change in the patient's condition or with their chief complaint. TRAVEL OUTSIDE OF THE [place] IN LAST 30 DAYS: No - Related Data Allergies/Adverse Reactions: exenatide [From [place]] Allergy (Severe, Verified 04/17/18 13:05) swelling NSAIDS (Non-Steroidal Anti-Inflamma Allergy (Severe, Verified 04/17/18 13:05) Anaphylaxis Past Medical History - Past Medical History Cardiac Medical History: Reports: Hx Hypercholesterolemia Denies: Hx Coronary Artery Disease, Hx Heart Attack, Hx Hypertension Pulmonary Medical History: Reports: Hx Bronchitis, Hx Pneumonia Denies: Hx Asthma, Hx COPD, Hx Tuberculosis Neurological Medical History: Denies: Hx Cerebrovascular Accident, Hx Migraine, Hx Seizures Endocrine Medical History: Reports: Hx Diabetes Mellitus Type 2 - IDDM Renal/ Medical History: Denies: Hx Peritoneal Dialysis Malignancy Medical History: Reports: Hx Cervical Cancer GI Medical History: Reports: Hx Gastroesophageal Reflux Disease Musculoskeltal Medical History: Denies Hx Arthritis Psychiatric Medical History: Reports: Hx Anxiety, Hx Bipolar Disorder, Hx Depression, Hx Post Traumatic Stress Disorder Past Surgical History: Reports: Hx Section - x2, Hx Hysterectomy, Hx Orthopedic Surgery - BL elbow. - Immunizations Immunizations up to date: No Hx Diphtheria, Pertussis, Tetanus Vaccination: No Physical Exam - Vital signs Vitals: Temp Pulse Resp BP Pulse Ox 98.7 F 127 H 16 167/104 H 95 04/01/20 18:09 04/01/20 18:09 04/01/20 18:09 04/01/20 18:09 04/01/20 18:09 Course - Vital Signs Vital signs: Temp Pulse Resp BP Pulse Ox 98.7 F 127 H 16 167/104 H 95 04/01/20 18:09 04/01/20 18:09 04/01/20 18:09 04/01/20 18:09 04/01/20 18:09
[2020-04-01 20:22] LABS: ABSOLUTE BASOPHILS # (AUTO) 0.1 10^3/uL (0.0-0.2); ABSOLUTE EOSINOPHILS # (AUTO) 0.2 10^3/uL (0.0-0.6); ABSOLUTE LYMPHOCYTES (AUTO) 2.7 10^3/uL (0.5-4.7); ABSOLUTE MONOCYTES (AUTO) 0.5 10^3/uL (0.1-1.4); ABSOLUTE NEUT (AUTO) 6.4 10^3/uL (1.7-8.2); BASOPHILS % (AUTO) 0.9 % (0-2); EOSINOPHILS % (AUTO) 2.5 % (0-6); HEMATOCRIT 42.7 % (36.0-47.0); HEMOGLOBIN 15.1 g/dL (12.0-15.5); LYMPHOCYTES % (AUTO) 27.2 % (13-45); MEAN CORPUSCULAR HEMOGLOBIN 29.8 pg (27.0-33.4); MEAN CORPUSCULAR HGB CONC 35.4 g/dL (32.0-36.0); MEAN CORPUSCULAR VOLUME 84 fl (80-97); MONOCYTES % (AUTO) 4.9 % (3-13); PLATELET COUNT 230 10^3/uL (150-450); RED BLOOD COUNT 5.06 10^6/uL (3.72-5.28); RED CELL DISTRIBUTION WIDTH 14.3 % (11.5-14.0); SEGMENTED NEUTROPHILS % (AUTO) 64.5 % (42-78); TOTAL CELLS COUNTED % (AUTO) 100 %
[2020-04-01 20:25] LABS: INTERNATIONAL RATION (INR) 0.93; PROTHROMBIN TIME 12.5 SEC (11.4-15.4)
[2020-04-01 20:26] LABS: PARTIAL THROMBOPLASTIN TIME 32.7 SEC (23.5-35.8)
[2020-04-01 20:35] LABS: ALBUMIN 4.3 g/dL (3.5-5.0); ALKALINE PHOSPHATASE 135 U/L (38-126); ANION GAP 15 (5-19); ASPARTATE AMINO TRANSFERASE 21 U/L (14-36); BILIRUBIN,TOTAL 0.6 mg/dL (0.2-1.3); BLOOD UREA NITROGEN 14 mg/dL (7-20); CALCIUM 10.2 mg/dL (8.4-10.2); CARBON DIOXIDE 19 mmol/L (22-30); CHLORIDE 100 mmol/L (98-107); GLUCOSE 375 mg/dL (75-110); POTASSIUM 4.1 mmol/L (3.6-5.0); TOTAL PROTEIN 7.7 g/dL (6.3-8.2)
--- NOTE | 2020-04-02 00:28 | EKG REPORT ---
SEVERITY:- ABNORMAL ECG - SINUS TACHYCARDIA BORDERLINE INFERIOR Q WAVES NONSPECIFIC T ABNORMALITIES, INFERIOR LEADS : Confirmed by: Glenn Garnica 02-Apr-2020 00:27:57
[2020-04-02] MEDS ORDERED: ONDANSETRON HCL INJ/PF 4 MG/2 ML SDV ONE (01:43)
[2020-04-02] MEDS ORDERED: FAMOTIDINE INJ/PF 20 MG/2 ML SDV IV ONE (02:23)
[2020-04-02] MEDS ORDERED: INSULIN REG, HUMAN 100 UNIT/ML 3 ML VIAL (PYX) IV ONE (02:33)
--- NOTE | 2020-04-02 02:33 | ER Document Report ---
Entered by SHARRON LEE SCRIBE 04/02/20 0153 Acting as scribe for:SIERRA GRAFF DO ED GI/ - General Chief Complaint: Rectal Bleeding Stated Complaint: VOMITING,RECTAL BLEEDING Time Seen by Provider: 04/01/20 18:42 Mode of Arrival: Ambulatory Information source: Patient Notes: This 54 year old female patient with a history of type 2 diabetes mellitus presents to the ED today with complaints of generalized abdominal pain with associated nausea/vomiting and bright red blood per rectum that started yesterday morning. Patient denies rectal bleeding in the past. She states that she has had a colonoscopy in the past years ago, but she doesn't recall the reason for it. She also notes heartburn for the past x1 week, burning with urination, dysuria, and and dark, foul-smelling urine. Denies fever or use of blood thinners. TRAVEL OUTSIDE OF THE [place] IN LAST 30 DAYS: No - Related Data Allergies/Adverse Reactions: exenatide [From [place]] Allergy (Severe, Verified 04/17/18 13:05) swelling NSAIDS (Non-Steroidal Anti-Inflamma Allergy (Severe, Verified 04/17/18 13:05) Anaphylaxis Past Medical History - General Information source: Patient - Social History Smoking Status: Current Every Day Smoker Cigarette use (# per day): Yes Chew tobacco use (# tins/day): No Smoking Education Provided: No Family History: Reviewed & Not Pertinent, DM, Hypertension, Malignancy Patient has suicidal ideation: No Patient has homicidal ideation: No - Past Medical History Cardiac Medical History: Reports: Hx Hypercholesterolemia Pulmonary Medical History: Reports: Hx Bronchitis, Hx Pneumonia Endocrine Medical History: Reports: Hx Diabetes Mellitus Type 2 - IDDM Malignancy Medical History: Reports: Hx Cervical Cancer GI Medical History: Reports: Hx Gastroesophageal Reflux Disease Psychiatric Medical History: Reports: Hx Anxiety, Hx Bipolar Disorder, Hx Depression, Hx Post Traumatic Stress Disorder Past Surgical History: Reports: Hx Section - x2, Hx Hysterectomy, Hx Orthopedic Surgery - BL elbow. - Immunizations Immunizations up to date: No Hx Diphtheria, Pertussis, Tetanus Vaccination: No Hx Pneumococcal Vaccination: 10/11/10 Review of Systems - Review of Systems Constitutional: See HPI. denies: Fever EENT: No symptoms reported Cardiovascular: No symptoms reported Respiratory: No symptoms reported Gastrointestinal: See HPI, Abdominal pain, Nausea, Vomiting, Rectal bleeding Genitourinary: See HPI, Burning, Dysuria, Other - Dark, foul-smelling urine Female Genitourinary: No symptoms reported Musculoskeletal: No symptoms reported Skin: No symptoms reported Hematologic/Lymphatic: No symptoms reported Neurological/Psychological: No symptoms reported -: Yes All other systems reviewed and negative Physical Exam - Vital signs Vitals: Temp Pulse Resp BP Pulse Ox 98.7 F 127 H 16 167/104 H 95 04/01/20 18:09 04/01/20 18:09 04/01/20 18:09 04/01/20 18:09 04/01/20 18:09 - General General appearance: Appears well, Alert In distress: None - HEENT Head: Normocephalic, Atraumatic Eyes: Normal Pupils: PERRL - Respiratory Respiratory status: No respiratory distress Chest status: Nontender Breath sounds: Normal Chest palpation: Normal - Cardiovascular Rhythm: Regular Heart sounds: Normal auscultation Murmur: No Friction rub: No Gallop: None auscultated - Abdominal Inspection: Obese Distension: No distension Bowel sounds: Normal Tenderness: Nontender - Abdomen soft Organomegaly: No organomegaly - Back Back: Normal, Nontender - Extremities General upper extremity: Normal inspection General lower extremity: Normal inspection. No: Edema - Neurological Neuro grossly intact: Yes Cognition: Normal Orientation: AAOx4 Bud Coma Scale Eye Opening: Spontaneous Bud Coma Scale Verbal: Oriented Bud Coma Scale Motor: Obeys Commands [place] Coma Scale Total: 15 Speech: Normal Motor strength normal: LUE, RUE, LLE, RLE Sensory: Normal - Psychological Associated symptoms: Normal affect, Normal mood - Skin Skin Temperature: Warm Skin Moisture: Dry Skin Color: Normal Course - Re-evaluation Re-evalutation: 04/02/20 02:34 54 year old female with rectal bleeding yesterday and mild diffuse abd pain. No fever. She has had a colonoscopy in the past but can not remember results or when it was. We discussed following up for another colonscopy and she expressed understanding. She will follow up for this. Also she has had heartburn lately and we have addressed that. - Vital Signs Vital signs: Temp Pulse Resp BP Pulse Ox 98.3 F 106 H 16 141/93 H 98 04/02/20 01:22 04/02/20 01:22 04/02/20 01:22 04/02/20 01:22 04/02/20 01:22 - Laboratory Result Diagrams: 04/01/20 19:55 04/01/20 19:55 Laboratory results interpreted by me: 04/01/20 04/01/20 04/02/20 19:55 19:55 02:40 RDW 14.3 H Sodium 134.1 L Carbon Dioxide 19 L Glucose 375 H Alkaline Phosphatase 135 H Urine Glucose (UA) >=500 H Urine Ketones TRACE H - Diagnostic Test Radiology reviewed: Reports reviewed - EKG Interpretation by Me EKG shows normal: Sinus rhythm Rate: Normal Rhythm: NSR - Sinus Tachy Nl [place] [address] elevation or depression my interpretation. Discharge - Discharge Clinical Impression: Type 2 diabetes mellitus with hyperglycemia, with long-term current use of insulin, Hyperglycemia, Rectal bleeding, Cystitis Condition: Stable Disposition: HOME, SELF-CARE Instructions: Family Physicians / Practices, Hyperglycemia ([facility]), Rectal Bleeding, Unclear Cause ([facility]) Additional Instructions: Your blood sugar was elevated here. Be sure and keep a check of that at home. Your rectal bleeding should be evaluated with a colonscopy as we discussed. Please schedule this as soon as possible. Return here for abdominal pain, increased bleeding, chest pain or dizziness or other problems or concerns. Also your reflux symptoms have a medicine - carafate - to treat this. Prescriptions: Sucralfate [Carafate 1 gm Tablet] 1 gm PO ACHS #120 tablet Cephalexin Monohydrate [Keflex 500 mg Capsule] 500 mg PO TID #15 capsule Forms: Elevated Blood Pressure I personally performed the services described in the documentation, reviewed and edited the documentation which was dictated to the scribe in my presence, and it accurately records my words and actions.
[2020-04-02 03:09] LABS: APPEARANCE,URINE SLIGHTLY-CLOUDY; BILIRUBIN,URINE NEGATIVE (NEGATIVE); COLOR,URINE YELLOW; GLUCOSE, URINE >=500 mg/dL (NEGATIVE); KETONES,URINE TRACE mg/dL (NEGATIVE); LEUKOCYTE ESTERASE,URINE NEGATIVE (NEGATIVE); NITRITE,URINE NEGATIVE (NEGATIVE); PROTEIN,URINE NEGATIVE (NEGATIVE); URINE SPECIFIC GRAVITY 1.031; UROBILINOGEN,URINE NEGATIVE mg/dL (<2.0)
[2020-04-02 03:46] VITALS: BP 126/91
== END 2020-04-02 04:03 | disposition home or self-care (01) ==
LOC: ER 17:56
DX: N30.90 Cystitis, unspecified without hematuria (principal); E11.65 Type 2 diabetes mellitus with hyperglycemia; R10.84 Generalized abdominal pain; K62.5 Hemorrhage of anus and rectum; F17.210 Nicotine dependence, cigarettes, uncomplicated; E78.00 Pure hypercholesterolemia, unspecified; Z79.4 Long term (current) use of insulin
CPT/HCPCS: 93005; 99283; 96361; 96374; 86900; 86901; 36415; 86850; 82962; 83690; 85025; 85610; 85730; 80053; 81001; 93010; A9270; J2405; J7030; S0028; J1815

== ENCOUNTER 2020-04-16 13:25 | Emergency (ER) | payer MEDICARE ==
[2020-04-16] MEDS ORDERED: NORMAL SALINE 1000 ML 1,000 ML IV ONE (14:04)
[2020-04-16] MEDS ORDERED: KETOROLAC TROMETHAMINE INJ/PF 30 MG/1 ML SDV IV ONE (14:05)
--- NOTE | 2020-04-16 14:07 | ER Document Report ---
ED Medical Screen (RME) - General Chief Complaint: Flank Pain Stated Complaint: LOW BACK PAIN TRAVEL OUTSIDE OF THE [place] IN LAST 30 DAYS: No - HPI Notes: 04/16/20 14:05 54-year-old female presents emergency room with complaints of right flank pain that is become progressively worse over the last 3 days. Reports pain is constant and stabbing, denies any radiation of pain. Patient was seen at urgent care and advised to come to the emergency room for left flank pain, did they did do urinalysis which did show hematuria. Patient tried Aleve and Advil without relief. No history of nephrolithiasis. Denies any chest pain, shortness of breath, nausea vomiting or diarrhea, fever or chills, pelvic pain, vaginal discharge or vaginal bleeding. I have greeted and performed a rapid initial assessment of this patient. A comprehensive ED assessment and evaluation of the patient, analysis of test results and completion of the medical decision making process will be conducted by additional ED providers. PHYSICAL EXAMINATION: GENERAL: Well-appearing, well-nourished and in no acute distress. CV: s1, s2 regular LUNGS: No respiratory distress abd: L cva tenderness appreciated Musculoskeletal: Normal range of motion NEUROLOGICAL: Normal speech, normal gait. SKIN: Warm, Dry, normal turgor, no rashes or lesions noted. - Related Data Allergies/Adverse Reactions: exenatide [From [place]] Allergy (Severe, Verified 04/16/20 13:56) swelling Past Medical History - Social History Chew tobacco use (# tins/day): No Frequency of alcohol use: None Drug Abuse: None - Past Medical History Cardiac Medical History: Reports: Hx Hypercholesterolemia Denies: Hx Coronary Artery Disease, Hx Heart Attack, Hx Hypertension Pulmonary Medical History: Reports: Hx Bronchitis, Hx Pneumonia Denies: Hx Asthma, Hx COPD, Hx Tuberculosis Neurological Medical History: Denies: Hx Cerebrovascular Accident, Hx Migraine, Hx Seizures Endocrine Medical History: Reports: Hx Diabetes Mellitus Type 2 - IDDM Renal/ Medical History: Denies: Hx Peritoneal Dialysis Malignancy Medical History: Reports: Hx Cervical Cancer GI Medical History: Reports: Hx Gastroesophageal Reflux Disease Musculoskeltal Medical History: Denies Hx Arthritis Psychiatric Medical History: Reports: Hx Anxiety, Hx Bipolar Disorder, Hx Depression, Hx Post Traumatic Stress Disorder Past Surgical History: Reports: Hx Section - x2, Hx Hysterectomy, Hx Orthopedic Surgery - BL elbow. - Immunizations Immunizations up to date: No Hx Diphtheria, Pertussis, Tetanus Vaccination: No Physical Exam - Vital signs Vitals: Temp Pulse Resp BP Pulse Ox 99.2 F 96 16 169/94 H 100 04/16/20 13:29 04/16/20 13:29 04/16/20 13:29 04/16/20 13:29 04/16/20 13:29 Course - Vital Signs Vital signs: Temp Pulse Resp BP Pulse Ox 99.2 F 96 16 169/94 H 100 04/16/20 13:29 04/16/20 13:29 04/16/20 13:29 04/16/20 13:29 04/16/20 13:29
[2020-04-16 15:03] LABS: HEMATOCRIT 41.4 % (36.0-47.0); MEAN CORPUSCULAR VOLUME 83 fl (80-97); PLATELET COUNT 228 10^3/uL (150-450); RED BLOOD COUNT 4.99 10^6/uL (3.72-5.28); RED CELL DISTRIBUTION WIDTH 14.6 % (11.5-14.0); WHITE BLOOD COUNT 9.9 10^3/uL (4.0-10.5)
[2020-04-16 15:06] LABS: APPEARANCE,URINE SLIGHTLY-CLOUDY; BILIRUBIN,URINE NEGATIVE (NEGATIVE); COLOR,URINE AMBER; GLUCOSE, URINE >=500 mg/dL (NEGATIVE); KETONES,URINE TRACE mg/dL (NEGATIVE); LEUKOCYTE ESTERASE,URINE NEGATIVE (NEGATIVE); NITRITE,URINE NEGATIVE (NEGATIVE); PROTEIN,URINE 100 mg/dL (NEGATIVE); URINE SPECIFIC GRAVITY 1.035; UROBILINOGEN,URINE NEGATIVE mg/dL (<2.0)
[2020-04-16 15:30] LABS: ALKALINE PHOSPHATASE 138 U/L (38-126); ANION GAP 10 (5-19); ASPARTATE AMINO TRANSFERASE 23 U/L (14-36); BILIRUBIN,DIRECT 0.2 mg/dL (0.0-0.4); BILIRUBIN,TOTAL 0.9 mg/dL (0.2-1.3); BLOOD UREA NITROGEN 13 mg/dL (7-20); CALCIUM 9.5 mg/dL (8.4-10.2); CARBON DIOXIDE 24 mmol/L (22-30); CHLORIDE 99 mmol/L (98-107); GLUCOSE 306 mg/dL (75-110); POTASSIUM 4.2 mmol/L (3.6-5.0); TOTAL PROTEIN 7.6 g/dL (6.3-8.2)
[2020-04-16 15:34] LABS: ABSOLUTE LYMPHOCYTES# (MANUAL) 2.1 10^3/uL (0.5-4.7); ABSOLUTE MONOCYTES # (MANUAL) 0.3 10^3/uL (0.1-1.4); BASOPHILS % (MANUAL) 0 % (0-2); EOSINOPHILS % (MANUAL) 3 % (0-6); LYMPHOCYTES % (MANUAL) 21 % (13-45); MONOCYTES % (MANUAL) 3 % (3-13); SEGMENTED NEUTROPHILS % (MAN) 73 % (42-78); TOTAL CELLS COUNTED 100
[2020-04-16 15:37] LABS: ANISOCYTOSIS SLIGHT; PLATELET COMMENT ADEQUATE
[2020-04-16 15:48] LABS: HEMOGLOBIN 13.9 g/dL (12.0-15.5); MEAN CORPUSCULAR HEMOGLOBIN 27.8 pg (27.0-33.4)
[2020-04-16 15:49] LABS: MEAN CORPUSCULAR HGB CONC 33.5 g/dL (32.0-36.0)
--- NOTE | 2020-04-16 15:59 | RADIOLOGY REPORT (SQ) ---
EXAM DESCRIPTION: CT ABD/PELVIS NO ORAL OR IV IMAGES COMPLETED DATE/TIME: 04/16/2020 3:41 pm REASON FOR STUDY: left flank pain x 3 days COMPARISON: None. TECHNIQUE: CT scan of the abdomen and pelvis performed without intravenous or oral contrast. Images reviewed with lung, soft tissue, and bone windows. Reconstructed coronal and sagittal MPR images revi ewed. All images stored on PACS. All CT scanners at this facility use dose modulation, iterative reconstruction, and/or weight based d osing when appropriate to reduce radiation dose to as low as reasonably achievable (ALARA). [facility]: Dose Right [facility]: CareDose [facility]: Dose Right [facility]: Teradose 4D [facility]: [employer] RADIATION DOSE: CT Rad equipment meets quality standard of care and radiation dose reduction techniq ues were employed. CTDIvol: 14.4 mGy. DLP: 747 mGy-cm.mGy. LIMITATIONS: None. FINDINGS: LOWER CHEST: Small pericardial effusion. NON-CONTRASTED LIVER, SPLEEN, ADRENALS: The liver is diffusely hypoattenuating. No masses. Spleen a nd adrenal glands are normal. PANCREAS: No masses. No peripancreatic inflammatory changes. GALLBLADDER: No identified stones by CT criteria. No inflammatory changes to suggest cholecystitis. RIGHT KIDNEY AND URETER: No suspicious masses. Assessment limited by lack of IV contrast. No signif icant calcifications. No hydronephrosis or hydroureter. LEFT KIDNEY AND URETER: No suspicious masses. Assessment limited by lack of IV contrast. No signifi cant calcifications. No hydronephrosis or hydroureter. AORTA AND RETROPERITONEUM: No aneurysm. No retroperitoneal masses or adenopathy. BOWEL AND PERITONEAL CAVITY: No obvious masses or inflammatory changes. No free fluid. APPENDIX: Normal. PELVIS, BLADDER, AND ABDOMINAL WALL:Urinary bladder is incompletely filled but otherwise unremarkable . BONES: No significant findings. OTHER: No other significant finding. IMPRESSION: 1. No urinary findings. 2. Hepatic steatosis. COMMENT: Quality ID # [id number]: Final reports with documentation of one or more dose reduction techniques (e.g., Automated exposure control, adjustment of the mA and/or kV according to patient size, use of iterative reconstruction technique) TECHNICAL DOCUMENTATION: JOB ID: [id number] 2010 [employer]- All Rights Reserved Reading location - IP/workstation name: [email or web address]
--- NOTE | 2020-04-16 16:50 | ER Document Report ---
ED General - General Chief Complaint: Flank Pain Stated Complaint: LOW BACK PAIN Time Seen by Provider: 04/16/20 14:10 TRAVEL OUTSIDE OF THE [place] IN LAST 30 DAYS: No - HPI Patient complains to provider of: Right flank pain Notes: 54-year-old female presents with 2-day history of nagging right flank pain 8/10 without radiation nothing makes it better or worse. Denies fever chills or any other associated symptoms. Denies trauma to her back. Patient denies dysuria but states her urine is been very dark. History of UTIs in the past. - Related Data Allergies/Adverse Reactions: exenatide [From [place]] Allergy (Severe, Verified 04/16/20 13:56) swelling Past Medical History - Social History Smoking Status: Current Every Day Smoker Chew tobacco use (# tins/day): No Frequency of alcohol use: None Drug Abuse: None Family History: Reviewed & Not Pertinent, DM, Hypertension, Malignancy Patient has homicidal ideation: No - Past Medical History Cardiac Medical History: Reports: Hx Hypercholesterolemia Denies: Hx Coronary Artery Disease, Hx Heart Attack, Hx Hypertension Pulmonary Medical History: Reports: Hx Bronchitis, Hx Pneumonia Denies: Hx Asthma, Hx COPD, Hx Tuberculosis Neurological Medical History: Denies: Hx Cerebrovascular Accident, Hx Migraine, Hx Seizures Endocrine Medical History: Reports: Hx Diabetes Mellitus Type 2 - IDDM Renal/ Medical History: Denies: Hx Peritoneal Dialysis Malignancy Medical History: Reports: Hx Cervical Cancer GI Medical History: Reports: Hx Gastroesophageal Reflux Disease Musculoskeletal Medical History: Denies Hx Arthritis Psychiatric Medical History: Reports: Hx Anxiety, Hx Bipolar Disorder, Hx Depression, Hx Post Traumatic Stress Disorder Past Surgical History: Reports: Hx Section - x2, Hx Hysterectomy, Hx Orthopedic Surgery - BL elbow. - Immunizations Immunizations up to date: No Hx Diphtheria, Pertussis, Tetanus Vaccination: No Hx Pneumococcal Vaccination: 10/11/10 Review of Systems - Review of Systems Notes: REVIEW OF SYSTEMS: CONSTITUTIONAL: -fevers, -chills EENT: -eye pain, -difficulty swallowing, -nasal congestion CARDIOVASCULAR: -chest pain, -syncope. RESPIRATORY: -cough, -SOB GASTROINTESTINAL: -abdominal pain, -nausea, -vomiting, -diarrhea GENITOURINARY: -dysuria, -hematuria MUSCULOSKELETAL:positive back pain SKIN: -rash or skin lesions. HEMATOLOGIC: -easy bruising or bleeding. LYMPHATIC: -swollen, enlarged glands. NEUROLOGICAL: -altered mental status or loss of consciousness, -headache, - neurologic symptoms PSYCHIATRIC: -anxiety, -depression. ALL OTHER SYSTEMS REVIEWED AND NEGATIVE. Physical Exam - Vital signs Vitals: Temp Pulse Resp BP Pulse Ox 99.2 F 96 16 169/94 H 100 04/16/20 13:29 04/16/20 13:29 04/16/20 13:29 04/16/20 13:04/16/20 13:29 - Notes Notes: PHYSICAL EXAMINATION: GENERAL: Well-appearing, well-nourished and in no acute distress. HEAD: Atraumatic, normocephalic. EYES: Pupils equal round, sclera anicteric, conjunctiva are normal. ENT: Surgical mask in place. NECK: Normal range of motion, LUNGS: No respiratory Distress, normal chest rise EXTREMITIES: Normal range of motion, No cyanosis. NEUROLOGICAL: Cranial nerves grossly intact. Normal speech, PSYCH: Normal mood, normal affect. SKIN: Warm, Dry, Course - Re-evaluation Re-evalutation: 04/16/20 17:04 Appearing female no acute distress presents with banking right back pain. Benign physical exam afebrile stable vital illness. Patient's CAT scan shows no kidney stone or other gross abnormality. Patient does appear to have a urinary tract infection. This could be early presentation of pyelonephritis. Will initiate analgesia in the department. Patient was given a dose of intramuscular ceftriaxone as well. Will be discharged home with prescription for oral opioids and cefdinir. Follow-up PCP return if anything changes - Vital Signs Vital signs: Temp Pulse Resp BP Pulse Ox 99.2 F 96 16 169/94 H 100 04/16/20 13:29 04/16/20 13:29 04/16/20 13:29 04/16/20 13:29 04/16/20 13:29 - Laboratory Result Diagrams: 04/16/20 14:41 04/16/20 14:41 Laboratory results interpreted by me: 04/16/20 04/16/20 04/16/20 14:41 14:41 14:41 RDW 14.6 H Sodium 133.1 L Glucose 306 H Alkaline Phosphatase 138 H Urine Protein 100 H Urine Glucose (UA) >=500 H Urine Ketones TRACE H Urine Blood MODERATE H Discharge - Discharge Clinical Impression: Flank pain Condition: Stable Disposition: HOME, SELF-CARE Instructions: Pyelonephritis ([facility]) Additional Instructions: See your PCP Prescriptions: Cefdinir 300 mg PO BID #14 capsule Oxycodone HCl [Oxycontin Ir 5 Mg Tablet] 5 mg PO Q4H PRN #15 tablet PRN Reason: For Pain Oxycodone HCl [Oxycontin Ir 5 Mg Tablet] 5 mg PO Q4H PRN #15 tablet PRN Reason: For Pain
[2020-04-16] MEDS ORDERED: ACETAMINOPHEN 325 MG TABLET PO ONE (16:54)
[2020-04-16] MEDS ORDERED: CEFTRIAXONE INJ 1000 MG VIAL IM ONE (16:54)
[2020-04-16] MEDS ORDERED: KETOROLAC TROMETHAMINE 60 MG/2 ML SDV IM ONE (16:54)
[2020-04-16] MEDS ORDERED: LIDOCAINE 1% INJ-PF (10 MG/ML) 30 ML SDV ONE (17:12)
[2020-04-16 17:43] VITALS: BP 155/88
== END 2020-04-16 17:40 | disposition home or self-care (01) ==
LOC: ER 13:25
DX: R10.9 Unspecified abdominal pain (principal); E11.9 Type 2 diabetes mellitus without complications; Z87.440 Personal history of urinary (tract) infections; F17.200 Nicotine dependence, unspecified, uncomplicated; Z79.4 Long term (current) use of insulin; Z85.41 Personal history of malignant neoplasm of cervix uteri
CPT/HCPCS: 99284; 96372; 36415; 87086; 85025; 81025; 80053; 81001; 74176; A9270; J1885; J3490; J0696

== ENCOUNTER 2020-04-20 16:16 | Emergency (ER) | payer MEDICARE ==
[2020-04-20 17:18] LABS: ABSOLUTE BASOPHILS # (AUTO) 0.1 10^3/uL (0.0-0.2); ABSOLUTE EOSINOPHILS # (AUTO) 0.3 10^3/uL (0.0-0.6); ABSOLUTE LYMPHOCYTES (AUTO) 2.1 10^3/uL (0.5-4.7); ABSOLUTE MONOCYTES (AUTO) 0.3 10^3/uL (0.1-1.4); ABSOLUTE NEUT (AUTO) 4.8 10^3/uL (1.7-8.2); BASOPHILS % (AUTO) 1.2 % (0-2); EOSINOPHILS % (AUTO) 3.7 % (0-6); HEMATOCRIT 37.5 % (36.0-47.0); HEMOGLOBIN 13.6 g/dL (12.0-15.5); MEAN CORPUSCULAR HEMOGLOBIN 30.4 pg (27.0-33.4); MEAN CORPUSCULAR HGB CONC 36.3 g/dL (32.0-36.0); MEAN CORPUSCULAR VOLUME 84 fl (80-97); MONOCYTES % (AUTO) 4.4 % (3-13); PLATELET COUNT 199 10^3/uL (150-450); RED BLOOD COUNT 4.48 10^6/uL (3.72-5.28); RED CELL DISTRIBUTION WIDTH 14.5 % (11.5-14.0); SEGMENTED NEUTROPHILS % (AUTO) 63.7 % (42-78); TOTAL CELLS COUNTED % (AUTO) 100 %; WHITE BLOOD COUNT 7.6 10^3/uL (4.0-10.5)
--- NOTE | 2020-04-20 17:22 | ER Document Report ---
ED Medical Screen (RME) - General Chief Complaint: Flank Pain Stated Complaint: RIGHT FLANK PAIN/BACK PAIN Time Seen by Provider: 04/20/20 17:02 Mode of Arrival: Ambulatory Information source: Patient Notes: HPI; 54-year-old female presents to the emergency room complaining of persistent right flank pain for the past week. States she was seen here on Wednesday was diagnosed with UTI was sent home on antibiotics and oxycodone she states that the medications are helping. She ran out of her oxycodone yesterday. She denies any fevers. No nausea, no vomiting, does not feel that her pain is coming from UTI. She states it does not burn when she urinates but she is having a hard time getting her urine out. No history of kidney stones. No medications today for pain PE: Alert and oriented x3. Mild distress noted. Lungs: Clear to auscultation without rales, rhonchi, wheezes. Heart: Regular rate rhythm without murmurs, rubs, gallops. Right CVA tenderness. Unable to do full abdominal exam in triage. I have greeted and performed a rapid initial assessment of this patient. A com prehensive ED assessment and evaluation of the patient, analysis of test results and completion of the medical decision making process will be conducted by additional ED providers. I have specifically instructed the patient or family members with the patient to immediately return to any nursing staff should anything change in the patient's condition or with their chief complaint. TRAVEL OUTSIDE OF THE [place] IN LAST 30 DAYS: No - Related Data Allergies/Adverse Reactions: exenatide [From [place]] Allergy (Severe, Verified 04/16/20 13:56) swelling Home Medications: metformin Past Medical History - Social History Chew tobacco use (# tins/day): No Frequency of alcohol use: None Drug Abuse: None - Past Medical History Cardiac Medical History: Reports: Hx Hypercholesterolemia Denies: Hx Coronary Artery Disease, Hx Heart Attack, Hx Hypertension Pulmonary Medical History: Reports: Hx Bronchitis, Hx Pneumonia Denies: Hx Asthma, Hx COPD, Hx Tuberculosis Neurological Medical History: Denies: Hx Cerebrovascular Accident, Hx Migraine, Hx Seizures Endocrine Medical History: Reports: Hx Diabetes Mellitus Type 2 - IDDM Renal/ Medical History: Denies: Hx Peritoneal Dialysis Malignancy Medical History: Reports: Hx Cervical Cancer GI Medical History: Reports: Hx Gastroesophageal Reflux Disease Musculoskeltal Medical History: Denies Hx Arthritis Psychiatric Medical History: Reports: Hx Anxiety, Hx Bipolar Disorder, Hx Depression, Hx Post Traumatic Stress Disorder Past Surgical History: Reports: Hx Section - x2, Hx Hysterectomy, Hx Orthopedic Surgery - BL elbow. - Immunizations Immunizations up to date: No Hx Diphtheria, Pertussis, Tetanus Vaccination: No Physical Exam - Vital signs Vitals: Temp Pulse Resp BP Pulse Ox 98.6 F 87 16 140/85 H 96 04/20/20 16:33 04/20/20 16:33 04/20/20 16:33 04/20/20 16:33 04/20/20 16:33 Course - Vital Signs Vital signs: Temp Pulse Resp BP Pulse Ox 98.6 F 87 16 140/85 H 96 04/20/20 17:02 04/20/20 16:33 04/20/20 16:33 04/20/20 16:33 04/20/20 16:33 - Laboratory Result Diagrams: 04/20/20 15:55 04/20/20 15:55
[2020-04-20 17:23] LABS: ALBUMIN 3.8 g/dL (3.5-5.0); ALKALINE PHOSPHATASE 170 U/L (38-126); ANION GAP 15 (5-19); ASPARTATE AMINO TRANSFERASE 20 U/L (14-36); BILIRUBIN,DIRECT 0.1 mg/dL (0.0-0.4); BILIRUBIN,TOTAL 0.7 mg/dL (0.2-1.3); BLOOD UREA NITROGEN 7 mg/dL (7-20); CALCIUM 9.4 mg/dL (8.4-10.2); CARBON DIOXIDE 20 mmol/L (22-30); CHLORIDE 98 mmol/L (98-107); POTASSIUM 3.9 mmol/L (3.6-5.0); TOTAL PROTEIN 6.9 g/dL (6.3-8.2)
[2020-04-20 17:34] LABS: GLUCOSE 471 mg/dL (75-110)
[2020-04-20 18:06] LABS: APPEARANCE,URINE SLIGHTLY-CLOUDY; BILIRUBIN,URINE NEGATIVE (NEGATIVE); COLOR,URINE YELLOW; GLUCOSE, URINE >=500 mg/dL (NEGATIVE); KETONES,URINE TRACE mg/dL (NEGATIVE); LEUKOCYTE ESTERASE,URINE NEGATIVE (NEGATIVE); NITRITE,URINE NEGATIVE (NEGATIVE); PROTEIN,URINE NEGATIVE (NEGATIVE); URINE SPECIFIC GRAVITY 1.038; UROBILINOGEN,URINE NEGATIVE mg/dL (<2.0)
[2020-04-20] MEDS ORDERED: RINGERS SOLUTION,LACTATED 1,000 ML IV ONE (18:56)
[2020-04-20] MEDS ORDERED: INSULIN REG, HUMAN 100 UNIT/ML 3 ML VIAL (PYX) IV ONE ×2 (19:15→20:47)
[2020-04-20] MEDS ORDERED: POTASSIUM CHLORIDE 20 MEQ PACKET PO ONE (19:15)
[2020-04-20] MEDS ORDERED: ONDANSETRON HCL INJ/PF 4 MG/2 ML SDV IV ONE (19:58)
[2020-04-20] MEDS ORDERED: HYDROMORPHONE HCL INJ/PF 2 MG/ML AMPULE IV ONE (19:58)
--- NOTE | 2020-04-20 19:59 | ER Document Report ---
Entered by KIRTI BOUDREAUX SCRIBE 04/20/201920 Acting as scribe for:SIERRA GRAFF DO ED GI/ - General Chief Complaint: Flank Pain Stated Complaint: RIGHT FLANK PAIN/BACK PAIN Time Seen by Provider: 04/20/20 17:02 Mode of Arrival: Ambulatory Information source: Patient Notes: This 54 year old female patient presents to the emergency department today with complaints of right sided flank pain. Patient was seen here on 04/16 for this same pain. Patient was sent home on cefdinir and oxycodone and she is now out of her pain medication and the pain is still present. Patient states it is "hard to pee". Patient denies any trauma, nausea, vomiting, shortness of breath, or chest pain. TRAVEL OUTSIDE OF THE [place] IN LAST 30 DAYS: No - Related Data Allergies/Adverse Reactions: exenatide [From Byetta] Allergy (Severe, Verified 04/16/20 13:56) swelling Home Medications: metformin Past Medical History - General Information source: Patient - Social History Smoking Status: Current Every Day Smoker Cigarette use (# per day): Yes Chew tobacco use (# tins/day): No Frequency of alcohol use: None Drug Abuse: None Lives with: Family Family History: Reviewed & Not Pertinent, DM, Hypertension, Malignancy - Past Medical History Cardiac Medical History: Reports: Hx Hypercholesterolemia Pulmonary Medical History: Reports: Hx Bronchitis, Hx Pneumonia Endocrine Medical History: Reports: Hx Diabetes Mellitus Type 2 - IDDM Malignancy Medical History: Reports: Hx Cervical Cancer GI Medical History: Reports: Hx Gastroesophageal Reflux Disease Psychiatric Medical History: Reports: Hx Anxiety, Hx Bipolar Disorder, Hx Depression, Hx Post Traumatic Stress Disorder Past Surgical History: Reports: Hx Section - x2, Hx Hysterectomy, Hx Orthopedic Surgery - BL elbow. - Immunizations Immunizations up to date: No Hx Diphtheria, Pertussis, Tetanus Vaccination: No Hx Pneumococcal Vaccination: 10/11/10 Review of Systems - Review of Systems Constitutional: No symptoms reported EENT: No symptoms reported Cardiovascular: No symptoms reported Respiratory: No symptoms reported Gastrointestinal: No symptoms reported Genitourinary: See HPI, Flank pain - right Female Genitourinary: No symptoms reported Musculoskeletal: No symptoms reported Skin: No symptoms reported Hematologic/Lymphatic: No symptoms reported Neurological/Psychological: No symptoms reported -: Yes All other systems reviewed and negative Physical Exam - Vital signs Vitals: Temp Pulse Resp BP Pulse Ox 98.6 F 87 16 140/85 H 96 04/20/20 16:33 04/20/20 16:33 04/20/20 16:33 04/20/20 16:33 04/20/20 16:33 - Notes Notes: Physical Exam: General: Alert, appears well. HEENT: Normocephalic. Atraumatic. PERRL. Extraocular movements intact. Oropharynx clear. Neck: Supple. Non-tender. Respiratory: No respiratory distress. Clear and equal breath sounds bilaterally. Cardiovascular: Regular rate and rhythm. Abdominal: Normal Inspection. Non-tender. No distension. Normal Bowel Sounds. Back: Tenderness with palpation to light palpation over the right sided flank muscles. No CVA ttp. No gross abnormalities. Extremities: Moves all four extremities. Upper extremities: Normal inspection. Normal ROM. Lower extremities: Normal inspection. No edema. Normal ROM. Neurological: Normal cognition. AAOx4. Normal speech. Psychological: Normal affect. Normal Mood. Skin: Warm. Dry. Normal color. Course - Vital Signs Vital signs: Temp Pulse Resp BP Pulse Ox 98.6 F 87 16 140/85 H 96 04/20/20 17:02 04/20/20 16:33 04/20/20 16:33 04/20/20 16:33 04/20/20 16:33 - Laboratory Result Diagrams: 04/20/20 15:55 04/20/20 15:55 Laboratory results interpreted by me: 04/20/20 04/20/20 04/20/20 15:55 15:55 17:13 MCHC 36.3 H RDW 14.5 H Sodium 132.6 L Carbon Dioxide 20 L Glucose 471 H* POC Glucose Alkaline Phosphatase 170 H Urine Glucose (UA) >=500 H Urine Ketones TRACE H 04/20/20 04/20/20 20:42 21:38 MCHC RDW Sodium Carbon Dioxide Glucose POC Glucose 303 H 286 H Alkaline Phosphatase Urine Glucose (UA) Urine Ketones Discharge - Discharge Clinical Impression: Hyperglycemia, Non-compliance Back pain Qualifiers: Back pain location: low back pain Chronicity: acute Back pain laterality: right Sciatica presence: without sciatica Qualified Code(s): M54.5 - Low back pain Condition: Stable Disposition: HOME, SELF-CARE Instructions: Family Physicians / Practices, Low Back Pain ([facility]), Stretching Exercises for the Back ([facility]) Additional Instructions: Your blood sugar was elevated here. Be sure and have the glucose level checked regularly and see a primary doctor in follow up. Call for one Wednesday. Trans ition from [facility] - which we gave you here - to tylenol for the back pain. We will not refill perscriptions for back pain here in the emergency department. This and the diabetes are 2 reasons to obtain a primary care doctor for your self. I personally performed the services described in the documentation, reviewed and edited the documentation which was dictated to the scribe in my presence, and it accurately records my words and actions.
[2020-04-20] MEDS: HUM INSULIN NPH/REG INSULIN HM 100 UNIT/1 ML 3 ML SUBCUT ONE ×2 (20:38→20:57)
[2020-04-20] MEDS ORDERED: HYDROCODONE/ACETAMINOPHEN 5-325 MG (6 TAB/ER DISP) PO PRN (23:02)
[2020-04-20 23:04] VITALS: BP 118/84
== END 2020-04-20 23:13 | disposition home or self-care (01) ==
LOC: ER 16:16
DX: E11.65 Type 2 diabetes mellitus with hyperglycemia (principal); M54.5 Low back pain; Z91.14 Patient's other noncompliance with medication regimen; F17.210 Nicotine dependence, cigarettes, uncomplicated; E78.00 Pure hypercholesterolemia, unspecified; Z79.4 Long term (current) use of insulin; Z90.710 Acquired absence of both cervix and uterus
CPT/HCPCS: 99284; 96361; 96374; 96375; 36415; 82962; 85025; 80053; 81001; J1170; A9270 ×2; J2405; J7120; J3490; J1815

== ENCOUNTER 2020-05-08 23:06 | Observation (INO) | payer MEDICARE ==
--- NOTE | 2020-05-08 23:10 | ER Document Report ---
ED Medical Screen (RME) - General Chief Complaint: General Weakness Stated Complaint: RIGHT ARM WEAKNESS,HYPERGLYCEMIA Time Seen by Provider: 05/08/20 23:07 Mode of Arrival: Medic Information source: Patient Notes: 54-year-old female patient presents emergency department with onset of numbness to the right side of her face and right arm onset 1 hour prior to arrival. She also complains of weakness to her right upper extremity. She is alert, oriented, maintaining her own airway. She will be sent for a CT of the head for stroke alert. She does report a history of a TIA. I have greeted and performed a rapid initial assessment of this patient. A comprehensive ED assessment and evaluation of the patient, analysis of test results and completion of the medical decision making process will be conducted by additional ED providers. I have specifically instructed the patient or family members with the patient to immediately return to any nursing staff should anything change in the patient's condition or with their chief complaint. TRAVEL OUTSIDE OF THE [place] IN LAST 30 DAYS: No - Related Data Allergies/Adverse Reactions: exenatide [From Byetta] Allergy (Severe, Verified 04/16/20 13:56) swelling Past Medical History - Past Medical History Cardiac Medical History: Reports: Hx Hypercholesterolemia Denies: Hx Coronary Artery Disease, Hx Heart Attack, Hx Hypertension Pulmonary Medical History: Reports: Hx Bronchitis, Hx Pneumonia Denies: Hx Asthma, Hx COPD, Hx Tuberculosis Neurological Medical History: Denies: Hx Cerebrovascular Accident, Hx Migraine, Hx Seizures Endocrine Medical History: Reports: Hx Diabetes Mellitus Type 2 - IDDM Renal/ Medical History: Denies: Hx Peritoneal Dialysis Malignancy Medical History: Reports: Hx Cervical Cancer GI Medical History: Reports: Hx Gastroesophageal Reflux Disease Musculoskeltal Medical History: Denies Hx Arthritis Psychiatric Medical History: Reports: Hx Anxiety, Hx Bipolar Disorder, Hx Depression, Hx Post Traumatic Stress Disorder Past Surgical History: Reports: Hx Section - x2, Hx Hysterectomy, Hx Orthopedic Surgery - BL elbow. - Immunizations Immunizations up to date: No Hx Diphtheria, Pertussis, Tetanus Vaccination: No
--- NOTE | 2020-05-08 23:40 | RADIOLOGY REPORT (SQ) ---
CLINICAL INDICATION: stroke alert. TECHNIQUE: A single portable AP view was obtained of the chest at 2325 hours. COMPARISON: November 02, 2016. FINDINGS: The cardiomediastinal silhouette is prominent but stable. The lungs are grossly clear. No evidence of effusion or pneumothorax. The visualized bones are unremarkable. Chronic changes IMPRESSION: No evidence of active intrathoracic disease.
--- NOTE | 2020-05-08 23:40 | RADIOLOGY REPORT (SQ) ---
EXAM DESCRIPTION: [facility]: CT HEAD WITHOUT IV CONTRAST CLINICAL HISTORY: 54 years Female; stroke alert; TECHNIQUE: Noncontrast CT head. All CT scans at this facility use dose modulation, iterative reconstruction, and/or weight based dosing when appropriate to reduce radiation dose to as low as reasonably achievable. COMPARISON: 09/23/2017 FINDINGS: Inferior right temporal/occipital encephalomalacia is again noted, consistent with old infarct. No acute hemorrhage or mass effect. No acute cortical edema. Ventricles and cisterns are preserved. Visualized portions of paranasal sinuses and mastoids are clear. Visualized portions of the calvarium are within normal limits. IMPRESSION: 1. No acute intracranial findings. 2. 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
[2020-05-08 23:51] LABS: INTERNATIONAL RATION (INR) 0.91; PROTHROMBIN TIME 12.3 SEC (11.4-15.4)
[2020-05-08 23:52] LABS: PARTIAL THROMBOPLASTIN TIME 32.2 SEC (23.5-35.8)
[2020-05-09 00:16] LABS: HEMATOCRIT 38.8 % (36.0-47.0); MEAN CORPUSCULAR VOLUME 84 fl (80-97); PLATELET COUNT 237 10^3/uL (150-450); RED BLOOD COUNT 4.64 10^6/uL (3.72-5.28); RED CELL DISTRIBUTION WIDTH 14.8 % (11.5-14.0)
[2020-05-09] MEDS ORDERED: NORMAL SALINE 1000 ML 1,000 ML IV ONE (00:26)
[2020-05-09 00:40] LABS: ABSOLUTE LYMPHOCYTES# (MANUAL) 2.8 10^3/uL (0.5-4.7); ABSOLUTE MONOCYTES # (MANUAL) 0.5 10^3/uL (0.1-1.4); BAND NEUTROPHILS % (MANUAL) 1 % (3-5); BASOPHILS % (MANUAL) 1 % (0-2); EOSINOPHILS % (MANUAL) 6 % (0-6); LYMPHOCYTES % (MANUAL) 31 % (13-45); MONOCYTES % (MANUAL) 5 % (3-13); SEGMENTED NEUTROPHILS % (MAN) 56 % (42-78); TOTAL CELLS COUNTED 100
[2020-05-09 00:43] LABS: PLATELET COMMENT ADEQUATE; RBC MORPHOLOGY COMMENT NORMO-CYTIC/CHROMIC; TOXIC GRANULATION SLIGHT
[2020-05-09 00:48] LABS: MEAN CORPUSCULAR HGB CONC 33.5 g/dL (32.0-36.0)
[2020-05-09 01:09] LABS: ALBUMIN 3.9 g/dL (3.5-5.0); ALKALINE PHOSPHATASE 163 U/L (38-126); ANION GAP 12 (5-19); ASPARTATE AMINO TRANSFERASE 50 U/L (14-36); BILIRUBIN,TOTAL 1.7 mg/dL (0.2-1.3); BLOOD UREA NITROGEN 12 mg/dL (7-20); CALCIUM 8.8 mg/dL (8.4-10.2); CARBON DIOXIDE 18 mmol/L (22-30); CHLORIDE 101 mmol/L (98-107); CREATINE KINASE 65 U/L (30-135); GLUCOSE 395 mg/dL (75-110); POTASSIUM 4.5 mmol/L (3.6-5.0); TOTAL PROTEIN 7.5 g/dL (6.3-8.2)
[2020-05-09 01:18] LABS: CREATINE KINASE MB 0.58 ng/mL (<4.55); TROPONIN I 0.022 ng/mL
--- NOTE | 2020-05-09 01:51 | ER Document Report ---
ED Neuro Symptoms/Deficit - General Chief Complaint: S/S of Possible Stroke Stated Complaint: RIGHT ARM WEAKNESS,HYPERGLYCEMIA Time Seen by Provider: 05/08/20 23:07 Mode of Arrival: Medic Information source: Patient Notes: 54-year-old female patient presents emergency department with onset of numbness to the right side of her face and right arm onset 1 hour prior to arrival which was approximately 10 PM. She also complains of weakness to her right upper extremity. She is alert, oriented, maintaining her own airway. She will be sent for a CT of the head for stroke alert. She does report a history of a TIA and diabetes. TRAVEL OUTSIDE OF THE [place] IN LAST 30 DAYS: No - Related Data Allergies/Adverse Reactions: exenatide [From [employer]] Allergy (Severe, Verified 04/16/20 13:56) swelling Past Medical History - General Information source: Patient - Social History Smoking Status: Current Every Day Smoker Frequency of alcohol use: None Drug Abuse: Bath salts Family History: Reviewed & Not Pertinent, DM, Hypertension, Malignancy Patient has homicidal ideation: No - Past Medical History Cardiac Medical History: Reports: Hx Hypercholesterolemia Denies: Hx Coronary Artery Disease, Hx Heart Attack, Hx Hypertension Pulmonary Medical History: Reports: Hx Bronchitis, Hx Pneumonia Denies: Hx Asthma, Hx COPD, Hx Tuberculosis Neurological Medical History: Denies: Hx Cerebrovascular Accident, Hx Migraine, Hx Seizures Endocrine Medical History: Reports: Hx Diabetes Mellitus Type 2 - IDDM Renal/ Medical History: Denies: Hx Peritoneal Dialysis Malignancy Medical History: Reports: Hx Cervical Cancer GI Medical History: Reports: Hx Gastroesophageal Reflux Disease Musculoskeletal Medical History: Denies Hx Arthritis Psychiatric Medical History: Reports: Hx Anxiety, Hx Bipolar Disorder, Hx Depression, Hx Post Traumatic Stress Disorder Past Surgical History: Reports: Hx Section - x2, Hx Hysterectomy, Hx Orthopedic Surgery - BL elbow. - Immunizations Immunizations up to date: No Hx Diphtheria, Pertussis, Tetanus Vaccination: No Hx Pneumococcal Vaccination: 10/11/10 Review of Systems - Review of Systems Constitutional: Weakness - Right upper extremity EENT: No symptoms reported Cardiovascular: No symptoms reported Respiratory: No symptoms reported Gastrointestinal: No symptoms reported Genitourinary: No symptoms reported Female Genitourinary: No symptoms reported Musculoskeletal: No symptoms reported Skin: No symptoms reported Hematologic/Lymphatic: No symptoms reported Neurological/Psychological: Numbness - Right face and right upper extremity Physical Exam - Vital signs Vitals: Pulse Resp BP Pulse Ox 95 16 147/107 H 98 05/08/20 23:38 05/08/20 23:38 05/08/20 23:38 05/08/20 23:38 - Notes Notes: PHYSICAL EXAMINATION: GENERAL: Well-appearing, well-nourished and in no acute distress. HEAD: Atraumatic, normocephalic. EYES: Pupils equal round and reactive to light, extraocular movements intact, conjunctiva are normal. ENT: Nares patent, oropharynx clear without exudates. Moist mucous membranes. NECK: Normal range of motion, supple without lymphadenopathy LUNGS: Breath sounds clear to auscultation bilaterally and equal. No wheezes rales or rhonchi. HEART: Regular rate and rhythm without murmurs ABDOMEN: Soft, nontender, nondistended abdomen. No guarding, no rebound. No masses appreciated. Female : deferred Musculoskeletal: Normal range of motion, no pitting or edema. No cyanosis. NEUROLOGICAL: Face symmetric. Tongue protrudes midline. Extraocular motions intact. Pupils are 2 mm and equally reactive. Normal speech, normal gait. 5 out of 5 strength in both the distal and proximal upper and lower extremities bilaterally. Sensation is abnormal to right face and right upper extremity. Finger to nose testing normal. Pronator drift normal. PSYCH: Normal mood, normal affect. SKIN: Warm, Dry, normal turgor, no rashes or lesions noted. Course - Re-evaluation Re-evalutation: Laboratory 05/08/20 05/08/20 05/08/20 23:18 23:25 23:25 WBC Cancelled RBC Cancelled Hgb Cancelled Hct Cancelled MCV Cancelled MCH Cancelled MCHC Cancelled RDW Cancelled Plt Count Cancelled Lymph % (Auto) Cancelled [place] % (Auto) Cancelled Eos % (Auto) Cancelled Baso % (Auto) Cancelled Absolute Neuts (auto) Cancelled Absolute Lymphs (auto) Cancelled Absolute Monos (auto) Cancelled Absolute Eos (auto) Cancelled Absolute Basos (auto) Cancelled Total Counted Seg Neutrophils % Cancelled Seg Neuts % (Manual) Band Neutrophils % Lymphocytes % (Manual) Monocytes % (Manual) Eosinophils % (Manual) Basophils % (Manual) Abs Neuts (Manual) Abs Lymphs (Manual) Abs Monocytes (Manual) Absolute Eos (Manual) Abs Basophils (Manual) Toxic Granulation Platelet Estimate Cancelled Platelet Comment RBC Morph Comment PT 12.3 INR 0.91 APTT 32.2 Sodium Potassium Chloride Carbon Dioxide Anion Gap BUN Creatinine Est GFR ( Amer) Est GFR (Non-Af Amer) Est GFR (MDRD) Non-Af Glucose POC Glucose 489 H* Calcium Total Bilirubin Direct Bilirubin Neonat Total Bilirubin Neonat Direct Bilirubin Neonat Indirect Bili AST ALT Alkaline Phosphatase Creatine Kinase CK-MB (CK-2) Troponin I Total Protein Albumin EGFR Slides for Path Review Cancelled 05/08/20 05/08/20 05/09/20 23:25 23:25 00:04 WBC RBC Hgb Hct MCV MCH MCHC RDW Plt Count Lymph % (Auto) [place] % (Auto) Eos % (Auto) Baso % (Auto) Absolute Neuts (auto) Absolute Lymphs (auto) Absolute Monos (auto) Absolute Eos (auto) Absolute Basos (auto) Total Counted Seg Neutrophils % Seg Neuts % (Manual) Band Neutrophils % Lymphocytes % (Manual) Monocytes % (Manual) Eosinophils % (Manual) Basophils % (Manual) Abs Neuts (Manual) Abs Lymphs (Manual) Abs Monocytes (Manual) Absolute Eos (Manual) Abs Basophils (Manual) Toxic Granulation Platelet Estimate Platelet Comment RBC Morph Comment PT INR APTT Sodium Cancelled 130.9 L Potassium Cancelled 4.5 Chloride Cancelled 101 Carbon Dioxide Cancelled 18 L Anion Gap Cancelled 12 BUN Cancelled 12 Creatinine Cancelled 0.59 Est GFR ( Amer) Cancelled > 60 Est GFR (Non-Af Amer) Cancelled Est GFR (MDRD) Non-Af Cancelled > 60 Glucose Cancelled 395 H POC Glucose Calcium Cancelled 8.8 Total Bilirubin Cancelled 1.7 H Direct Bilirubin Cancelled 1.0 H Neonat Total Bilirubin Cancelled Not Reportable Neonat Direct Bilirubin Cancelled Not Reportable Neonat Indirect Bili Cancelled Not Reportable AST Cancelled 50 H ALT Cancelled 20 Alkaline Phosphatase Cancelled 163 H Creatine Kinase Cancelled 65 CK-MB (CK-2) Cancelled Troponin I Cancelled Total Protein Cancelled 7.5 Albumin Cancelled 3.9 EGFR Cancelled Slides for Path Review 05/09/20 05/09/20 00:04 00:04 WBC 9.0 RBC 4.64 Hgb 13.0 Hct 38.8 MCV 84 MCH 28.0 MCHC 33.5 RDW 14.8 H Plt Count 237 Lymph % (Auto) Not Reportable [place] % (Auto) Not Reportable Eos % (Auto) Not Reportable Baso % (Auto) Not Reportable Absolute Neuts (auto) Not Reportable Absolute Lymphs (auto) Not Reportable Absolute Monos (auto) Not Reportable Absolute Eos (auto) Not Reportable Absolute Basos (auto) Not Reportable Total Counted 100 Seg Neutrophils % Not Reportable Seg Neuts % (Manual) 56 Band Neutrophils % 1 L Lymphocytes % (Manual) 31 Monocytes % (Manual) 5 Eosinophils % (Manual) 6 Basophils % (Manual) 1 Abs Neuts (Manual) 5.1 Abs Lymphs (Manual) 2.8 Abs Monocytes (Manual) 0.5 Absolute Eos (Manual) 0.5 Abs Basophils (Manual) 0.1 Toxic Granulation SLIGHT Platelet Estimate Platelet Comment ADEQUATE RBC Morph Comment NORMO-CYTIC/CHROMIC PT INR APTT Sodium Potassium Chloride Carbon Dioxide Anion Gap BUN Creatinine Est GFR ( Amer) Est GFR (Non-Af Amer) Est GFR (MDRD) Non-Af Glucose POC Glucose Calcium Total Bilirubin Direct Bilirubin Neonat Total Bilirubin Neonat Direct Bilirubin Neonat Indirect Bili AST ALT Alkaline Phosphatase Creatine Kinase CK-MB (CK-2) 0.58 Troponin I 0.022 Total Protein Albumin EGFR Slides for Path Review Chest X-Ray 05/08/20 23:08 IMPRESSION: No evidence of active intrathoracic disease. Head CT 05/08/20 23:08 IMPRESSION: 1. No acute intracranial findings. 2. 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 Patient accepted for admission by hospitalist for TIA work-up. Patient did have elevated glucose here in the emergency department. She was given a liter of fluids and also her nighttime dose of insulin 70/30. Patient has continued to have no acute neurological deficits. - Vital Signs Vital signs: Temp Pulse Resp BP Pulse Ox 98.0 F 95 16 147/107 H 98 05/09/20 00:06 05/08/20 23:38 05/08/20 23:38 05/08/20 23:38 05/08/20 23:38 - Laboratory Result Diagrams: 05/09/20 00:04 05/09/20 00:04 Laboratory results interpreted by me: 05/08/20 05/09/20 05/09/20 23:18 00:04 00:04 RDW 14.8 H Band Neutrophils % 1 L Sodium 130.9 L Carbon Dioxide 18 L Glucose 395 H POC Glucose 489 H* Total Bilirubin 1.7 H Direct Bilirubin 1.0 H AST 50 H Alkaline Phosphatase 163 H ED Alteplase Inc/Exc Criteria - Date/Time patient last known well: Date/Time: 05/08/20202199 - Date/Time patient arrived in ED: _: 05/08/20202299 - Inclusion Criteria: 1: Patient presented to ED within 3 hours of acute ischemic stroke symptom onset? -: No 2: Did baseline CT exclude intracranial hemorrhage and/or other risk factors? -: Yes 3: Is the age of the patient 18 years of age or greater? -: Yes : If any of the above questions are answered "NO" then stop, patient is not a candidate for Alteplase, : If all of the above questions are answered "YES" then continue with Exclusion Criteria. - Exclusion Criteria: 1: Is there evidence of intracranial hemorrhage on baseline CT? -: No 2: Is there suspicion of subarachnoid hemorrhage (even if CT negative)? -: No 3: Is there a history of serious head trauma, recent previous stroke or CO within 3 months? -: No 4: Does the patient have a clinical presentation consistent with CO or post-CO pericarditis? -: No 5: Is there history of intracranial hemorrhage? -: No 6: On repeated measurement is Systolic BP greater than 185mmHg or Diastolic BP greater that 110 mmHg and is aggressive treatment needed to reduce blood pressure to these limits (e.g. constant infusion of an anti-hypertensive)? -: No 7: Did the patient awake with stroke symptoms? -: No 8: Has the patient had a lumbar puncture or an arterial puncture at a non- compressile site within 7 days? -: No 9: With in the last 14 days did the patient have surgery or major trauma? -: No 10: Is the patient or less than 2 weeks? -: No 11: Was there any active bleeding or acute trauma? -: No 12: Does the patient have intracranial neoplasm, arteriovenous malformation or aneurysm? -: No 13: Does the patient have abnormal glucose (less than 50 or greater than 400mg/dl)? Record glucose in Comment. -: No 14: Patient has rapidly improving symptoms at the time Alteplase is to be Administered. -: Yes 15: Does the patient have any risks for bleeding, including but not limited to: a.: Current use of Coumadin with PT greater than 15 seconds or INR greater than 1.7. b.: Current use of Pradaxa (Dabigatran). c.: Heparin administereed within the past 48 hours and PTT elevated. d.: Platelet count less than 100,000/mm. e.: Major surgery or serious trauma within 14 days. f.: Gastrointestinal or gynecological urinary bleeding within 14 days. g.: Myocardial Infarction (CO) within 3 months. -: No : If the answer to any of the above questions is "YES" then stop, the patient is not a candidate for Alteplase. : If the answer to all of the above questions is "NO" then the patient may be eligible for the Administration of Alteplase. : If the patient is noted to have seizure activity at onset of Stroke symptoms; Consult Neurologist for further evaluation. - The patient is: -: Included and is eligible to receive Alteplase. *Initiate bed placement at higher level of care* --: No Reviewed risks & benefits of thrombolytic therapy: I have reviewed the risks and benefits of thrombolytic therapy with the patient and/or his/her family. No -: Excluded and not eligible to receive Alteplase for the above exclusions. --: No -: Excluded and not eligible to receive Alteplase for other reasons (specify in comments): --: No - Diagnosis of TIA: -: Patient presented with transient symptoms that are now resolved and no other neurologic findings are currently present. List symptoms in comments. -: No -: Patient is NOT a candidate for tPA. -: No -: ____(put name in comment) has been consulted for admission and continued evaluation of risk factor assessment. ED NIH Stroke Scale - NIH Stroke Scale When completed:: Protocol *: 1. NIH scale should be completed with appropriate accompanying assessment tools. *: 2. The NIH should reflect what the patient is capable of doing and should not be coached by the clinician. 1a. Level of Consciousness: 0=Alert;keenly responsive -: 1=Drowsy -: 2=Obtunded -: 3=Coma/unresponsive or reflex to noxious stimuli. 1a. Responses: 0 1b. Orientation Questions: a. What month is it? -: b. How old are you? -: 0=Answers both questions correctly. -: 1=Answers one question correctly or patient is intubated or has orotracheal trauma. -: 2=Answers neither question correctly. 1b. Responses: 0 1c. Response to commands: a. Open and close eyes? -: b. Life Insurance Salesperson and release hand? -: Credit is given despite weakness. Demonstration of task is permitted. Substitute command if hands cannot be used. -: 0=Performs both tasks correctly -: 1=Performs one task correctly -: 2=Performs neither task correctly 1c. Responses: 0 2. Gaze: Establish eye contact and instruct patient to "Follow my finger" -: 0=Normal -: 1=Partial gaze palsy. Gaze is abnormal in one or both eyes, but where forced deviation or total gaze paresis is not present. -: 2=Forced deviation or total gaze paresis. 2. Responses: 0 3. Visual Cintron: Sees fingers in all four quadrants. -: 0=No visual loss. -: 1=Partial hemianopsia. -: 2=Complete hemianopsia. -: 3=Bilateral hemianopsia (including Cortical blindness) 3. Responses: 0 4. Facial Movement: Instruct patient to: -: a. Show me your teeth -: b. Raise your eyebrows -: c. Close your eyes -: d. Smile -: 0=Normal symmetrical movement -: 1=Minor paralysis (flattened nasolabial fold, asymmetry on smiling). -: 2=Partial paralysis (total or near total paralysis of lower face). -: 3=Complete paralysis of upper and lower face 4. Responses: 0 5. Motor functions (left arm): Alternate sides and extend each arm with palms down (90 degrees if sitting or 45 degrees for supine). -: 0=No drift;limb holds for full 10 seconds. -: 1=Drift; limb holds but drifts down before full 10 seconds, but does not hit bed. -: 2=Some effort against gravity; limb cannot get to or maintain position. -: 3=No effort against gravity; limb falls. -: 4=No movement. -: UN=Amputation, joint fusion, explain in comments. 5. Responses (left arm): 0 5. Motor Functions (right arm): Alternate sides and extend each arm with palms down (90 degrees if sitting or 45 degrees for supine). -: 0=No drift;limb holds for full 10 seconds. -: 1=Drift; limb holds but drifts down before full 10 seconds, but does not hit bed. -: 2=Some effort against gravity; limb cannot get to or maintain position. -: 3=No effort against gravity; limb falls. -: 4=No movement. -: UN=Amputation, joint fusion, explain in comments. 5. Responses (right arm): 0 6. Motor Functions (left leg): With patient lying supine, alternate sides and extend each leg (30 degrees always while supine). -: 0=No drift, leg holds position for full 5 seconds -: 1=Drift; leg falls before full 5 seconds but does not hit bed. -: 2=Some effort against gravity, leg falls to bed but some effort against g ravity. -: 3=No effort against gravity, leg falls to bed immediately. -: 4=No movement. -: UN=Amputation, joint fusion; explain in comments. 6. Responses (left leg): 0 6. Motor Functions (right leg): With patient lying supine, alternate sides and extend each leg (30 degrees always while supine). -: 0=No drift, leg holds position for full 5 seconds -: 1=Drift; leg falls before full 5 seconds but does not hit bed. -: 2=Some effort against gravity, leg falls to bed but some effort against gravity. -: 3=No effort against gravity, leg falls to bed immediately. -: 4=No movement. -: UN=Amputation, joint fusion; explain in comments. 6. Responses (right leg): 0 7. Limb Ataxia: With eyes open instruct patient to: -: a. "Touch your finger to your nose". -: b. "Touch your heel to your fox" -: 0=Absent -: 1=Present in one limb. -: 2=Present in two limbs. -: UN=Amputation or joint fusion; explain in comments. 7. Responses: 0 8. Sensory: Test sensation using pinprick or noxious stimuli. Test as many body parts as possible. -: 0=Normal;no sensory loss -: 1=Mile to moderate sensory loss (patient feels pin prick but is less sharp on affected side). -: 2=Severe or total sensory loss. 8. Responses: 0 9. Best Language: Instruct patient to: -: a. "Describe what you see in this picture." -: b. "Name the items in this picture." -: c. "Read these sentences." -: 0=No aphasia, normal -: 1=Mild to moderate aphasia. -: 2=Severe aphasia -: 3=Mute, global aphasia, no usable speech or auditory comprehension. 9. Responses: 0 10. Articulation, Dysarthia: Instruct patient to: -: "Read these words" or "Repeat these words" -: 0=Normal -: 1=Mild to moderate; patient may slur some words but can be understood without difficulty. -: 2=Severe; patients speech so slurred as to be unintelligible in the absence of dysphasia. -: UN=Intubated or other physical barrier, explain in comments. 10. Responses: 0 11. Extinction or inattention: 0=No abnormality -: 1= Visual, tactile, auditory, spatial, or personal inattention or extinction to bilateral simulation in one or the sensory modalities. -: 2=Profound karen-inattention or karen-inattention to more than one modality; does not recognize own hand. 11. Responses: 0 Total Score: 0 Discharge - Discharge Clinical Impression: TIA (transient ischemic attack) Condition: Stable Disposition: ADMITTED INPATIENT Admitting Provider: Kristel (Hospitalist) Unit Admitted: [facility]
[2020-05-09] MEDS ORDERED: HUM INSULIN NPH/REG INSULIN HM 100 UNIT/1 ML 3 ML SUBCUT ONE (01:59)
[2020-05-09] MEDS ORDERED: ATORVASTATIN CALCIUM 40 MG TABLET PO ONE (03:07)
[2020-05-09] MEDS ORDERED: DEXTROSE 40% GEL 15 GM TUBE PO PRN ×2 (03:08)
[2020-05-09] MEDS ORDERED: GLUCAGON,HUMAN RECOMB 1 MG INJ IM PRN (03:08)
[2020-05-09] MEDS ORDERED: DEXTROSE 50%-WATER 25 GM/50 ML DISP.SYRIN IV PRN ×2 (03:08)
[2020-05-09] MEDS ORDERED: HYDRALAZINE HCL INJ/PF 20 MG/1 ML SDV IV PRN (03:18)
--- NOTE | 2020-05-09 03:34 | PDOC H&P ---
History of Present Illness History of Present Illness: NISSA TUTTLE is a 54 year old female with a past medical history of diabetes and is a current every day smoker who said she moved here from [place] a year ago and has not gotten a primary care provider and has not had any medications for any of her conditions since that time. Around 2200 last night she had an episode of right arm numbness and weakness that lasted approximately 20 minutes and then spontaneously resolved. She said that she had had a "mini stroke" before and so she decided to come get checked out. She was hypertensive, primarily diastolic hypertension with 1 diastolic pressure recorded at 107. Her blood sugar was also in the 400s. Head CT did not show an acute stroke but it did show evidence of a prior stroke. Past Medical History Cardiac Medical History: Reports: Hyperlipidema Denies: Coronary Artery Disease, Myocardial Infarction, Hypertension Pulmonary Medical History: Reports: Bronchitis, Pneumonia Denies: Asthma, Chronic Obstructive Pulmonary Disease (COPD), Tuberculosis Neurological Medical History: Denies: Migraine, Seizures Endocrine Medical History: Reports: Diabetes Mellitus Type 2 - IDDM Malignancy Medical History: Reports: Cervical Cancer GI Medical History: Reports: Gastroesophageal Reflux Disease Musculoskeltal Medical History: Denies: Arthritis Psychiatric Medical History: Reports: Bipolar Disorder, Depression, Post Traumatic Stress Disorder Hematology: Denies: Anemia Past Surgical History Past Surgical History: Reports: Section - x2, Hysterectomy, Orthopedic Surgery - BL elbow. Social History Smoking Status: Current Every Day Smoker Frequency of Alcohol Use: None Hx Recreational Drug Use: No Drugs: None Hx Prescription Drug Abuse: No Family History Family History: Reviewed & Not Pertinent, DM, Hypertension, Malignancy Parental Family History Reviewed: Yes Children Family History Reviewed: Yes Sibling(s) Family History Reviewed.: Yes Medication/Allergy Home Medications: Zolpidem Tartrate [Ambien] 10 mg PO QHS 11/02/16 Hum Insulin NPH/Reg Insulin Hm [Insulin 70-30 (NPH/Reg) 100 unit/mL] 20 units SQ BID 12/11/19 Metformin HCl [Glucophage] 1,000 mg PO BID 12/11/19 Acetaminophen [Tylenol 325 mg Tablet] 650 mg PO Q4HP PRN tablet 12/13/19 Buspirone HCl [Buspar 10 mg Tablet] 10 mg PO DAILY 30 Days #30 12/13/19 Fluoxetine HCl [Prozac 20 mg Capsule] 20 mg PO DAILY #30 capsule 12/13/19 Fluoxetine HCl [Prozac] 20 mg PO DAILY 30 Days #30 12/13/19 Hum Insulin NPH/Reg Insulin Hm [Insulin 70-30 (NPH/Reg) 100 unit/mL] 30 unit SUBCUT BIDACBS 30 Days #30 unit 12/13/19 Metformin HCl [Glucophage 500 mg Tablet] 1,000 mg PO BIDACBS 30 Days #120 tablet 12/13/19 Cephalexin Monohydrate [Keflex 500 mg Capsule] 500 mg PO TID #15 capsule 04/02/20 Sucralfate [Carafate 1 gm Tablet] 1 gm PO ACHS #120 tablet 04/02/20 Cefdinir 300 mg PO BID #14 capsule 04/16/20 Oxycodone HCl [Oxycontin Ir 5 Mg Tablet] 5 mg PO Q4H PRN #15 tablet 04/16/20 Oxycodone HCl [Oxycontin Ir 5 Mg Tablet] 5 mg PO Q4H PRN #15 tablet 04/16/20 Cyclobenzaprine HCl [Flexeril 10 mg Tablet] 10 mg PO TIDP PRN #15 tab 04/20/20 Allergies/Adverse Reactions: exenatide [From By[place]] Allergy (Severe, Verified 04/16/20 13:56) swelling Review of Systems All systems: reviewed and no additional remarkable complaints except as stated - All systems were reviewed and were negative except as noted in the HPI Physical Exam Vital Signs: Temp Pulse Resp BP Pulse Ox 98.0 F 95 19 122/73 99 05/09/20 00:06 05/08/20 23:38 05/09/20 03:01 05/09/20 03:00 05/09/20 03:01 Intake & Output 05/07/20 05/08/20 05/09/20 06:59 06:59 06:59 Intake Total 1000 Balance 1000 General appearance: PRESENT: no acute distress, cooperative, disheveled, morbidly obese Head exam: PRESENT: atraumatic, normocephalic Eye exam: PRESENT: EOMI, PERRLA. ABSENT: conjunctival injection, nystagmus, scleral icterus Ear exam: PRESENT: normal external ear exam Mouth exam: PRESENT: moist Teeth exam: PRESENT: poor dentation Throat exam: ABSENT: post pharyngeal erythema Neck exam: PRESENT: full ROM. ABSENT: carotid bruit, JVD, lymphadenopathy, meningismus, tenderness, thyromegaly Respiratory exam: PRESENT: clear to auscultation bri, symmetrical, unlabored. ABSENT: accessory muscle use, chest wall tenderness, crackles, prolonged expiratory phas, rhonchi, tachypnea, wheezes Cardiovascular exam: PRESENT: RRR, +S1, +S2 Pulses: PRESENT: normal carotid pulses Vascular exam: PRESENT: normal capillary refill GI/Abdominal exam: PRESENT: normal bowel sounds, soft. ABSENT: distended, guarding, rebound, tenderness Extremities exam: ABSENT: clubbing, pedal edema Musculoskeletal exam: PRESENT: normal inspection. ABSENT: deformity Neurological exam: PRESENT: alert, awake, oriented to person, oriented to place, oriented to time, oriented to situation, CN II-XII grossly intact. ABSENT: motor sensory deficit Psychiatric exam: PRESENT: appropriate affect, normal mood Skin exam: PRESENT: dry, warm Results Laboratory Results: 05/09/20 00:04 05/09/20 00:04 05/08/20 05/08/20 05/09/20 23:25 23:25 00:04 WBC Cancelled RBC Cancelled Hgb Cancelled Hct Cancelled MCV Cancelled MCH Cancelled MCHC Cancelled RDW Cancelled Plt Count Cancelled Seg Neutrophils % Cancelled Sodium Cancelled 130.9 L Potassium Cancelled 4.5 Chloride Cancelled 101 Carbon Dioxide Cancelled 18 L Anion Gap Cancelled 12 BUN Cancelled 12 Creatinine Cancelled 0.59 Est GFR ( Amer) Cancelled > 60 Est GFR (Non-Af Amer) Cancelled Glucose Cancelled 395 H Calcium Cancelled 8.8 Total Bilirubin Cancelled 1.7 H AST Cancelled 50 H Alkaline Phosphatase Cancelled 163 H Total Protein Cancelled 7.5 Albumin Cancelled 3.9 05/09/20 00:04 WBC 9.0 RBC 4.64 Hgb 13.0 Hct 38.8 MCV 84 MCH 28.0 MCHC 33.5 RDW 14.8 H Plt Count 237 Seg Neutrophils % Not Reportable Sodium Potassium Chloride Carbon Dioxide Anion Gap BUN Creatinine Est GFR ( Amer) Est GFR (Non-Af Amer) Glucose Calcium Total Bilirubin AST Alkaline Phosphatase Total Protein Albumin 05/08/20 05/08/20 05/09/20 23:25 23:25 00:04 Creatine Kinase Cancelled 65 CK-MB (CK-2) Cancelled Troponin I Cancelled 05/09/20 00:04 Creatine Kinase CK-MB (CK-2) 0.58 Troponin I 0.022 Impressions: Chest X-Ray 05/08/20 23:08 IMPRESSION: No evidence of active intrathoracic disease. Head CT 05/08/20 23:08 IMPRESSION: 1. No acute intracranial findings. 2. 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 Assessment and Plan - Diagnosis (1) TIA (transient ischemic attack) Is this a current diagnosis for this admission?: Yes Plan: She does have risk factors. She has had a prior stroke on CT. She is an every day smoker. She is diabetic. She is hypertensive. We will get an MRI of the head and a carotid Doppler. She has no trouble chewing or swallowing, no trouble using her arms or legs, and is in fact completely asymptomatic at this time so I do not think she needs evaluation by PT, OT, or speech therapy at this time. We will start aspirin and a statin. We will check a fasting lipid panel. (2) Hypertensive urgency Is this a current diagnosis for this admission?: Yes Plan: Blood pressure has improved some. Will allow permissive hypertension for the f irst 24 hours. PRN hydralazine in case her systolic goes above 220 or her diastolic goes above 120. (3) Hyperglycemia due to type 2 diabetes mellitus Qualifiers: Diabetes mellitus penitentiary insulin use: without yard manager use Qualified Code(s): E11.65 - Type 2 diabetes mellitus with hyperglycemia Is this a current diagnosis for this admission?: Yes Plan: We will put her on some IV fluids, consistent carbohydrate diet, and a sliding scale. Depending on how she responds to insulin and fluids, she may need further adjustment of her insulin regimen. (4) Patient noncompliance Is this a current diagnosis for this admission?: Yes (5) Current every day smoker Is this a current diagnosis for this admission?: Yes Plan: Strongly encourage cessation - Time Time Spent with patient: 35 or more minutes Anticipated Discharge Disposition: Home, Self Care Anticipated Discharge Timeframe: within 48 hours - Inpatient Certification Based on my medical assessment, after consideration of the patient's comorbidities, presenting symptoms, or acuity I expect that the services needed warrant INPATIENT care.: Yes I certify that my determination is in accordance with my understanding of Medicare's requirements for reasonable and necessary INPATIENT services [42 CFR 412.3e].: Yes Medical Necessity: Significant Comorbidiites Make Outpatient Treatment Too Risky, Need Close Monitoring Due to Risk of Patient Decompensation, Need For IV Fluids, Need For Continuous Telemetry Monitoring, Need for Neurological Checks, Risk of Complication if Not Cared For in Hospital
[2020-05-09] MEDS: NORMAL SALINE 1000 ML 1,000 ML IV PRN ×3 (04:07→21:41)
[2020-05-09 06:43] LABS: CHOLESTEROL 511.27 mg/dL (0-200); DIRECT LDL 136 mg/dL (<100)
[2020-05-09 06:44] LABS: TRIGLYCERIDES 7356 mg/dL (<150)
[2020-05-09] MEDS: HEPARIN SOD (PORCINE) 5,000 UNIT/ML 1 ML VIAL SUBCUT SCH ×3 (06:45→21:37)
[2020-05-09] MEDS: INSULIN LISPRO 100 UNIT/ML 3 ML VIAL SUBCUT SCH ×4 (08:04→21:37)
[2020-05-09] MEDS: ASPIRIN 81 MG TABLET, CHEWABLE PO SCH (09:32)
--- NOTE | 2020-05-09 10:54 | RADIOLOGY REPORT (SQ) ---
EXAM DESCRIPTION: MRI HEAD WITHOUT IMAGES COMPLETED DATE/TIME: 05/09/2020 9:17 am REASON FOR STUDY: acute cva COMPARISON: 11/01/2016 TECHNIQUE: Multiplanar imaging includes non-contrasted T1, T2, FLAIR, and Diffusion with ADC map seq uences. Images stored on PACS. LIMITATIONS: None. FINDINGS: ANATOMY: No anomalies. Normal vascular flow voids. Pituitary fossa normal. CSF SPACES: Normal in size and contour. No hemorrhage. CEREBRUM: Old large right occipital infarct. Old small watershed infarct left frontal lobe. A few h igh-signal intensity lesions scattered throughout the white matter on FLAIR imaging with distribution suggesting chronic micro-vascular ischemic change. Sulci and gyri normal in size and contour. No e vidence of hemorrhage, mass or extraaxial fluid collection. POSTERIOR FOSSA: No signal alteration. No hemorrhage. No edema, masses or mass effect. Internal yoel tory canals, cerebello-pontine angles, mastoids normal. DIFFUSION: Negative for acute or sub-acute infarction. ORBITS: No masses. Globes normal. PARANASAL SINUSES: No fluid levels. Mucosa normal. OTHER: No other significant finding. IMPRESSION: Chronic ischemic changes. EVIDENCE OF ACUTE STROKE: NO. TECHNICAL DOCUMENTATION: JOB ID: [id number] 2010 [employer]- All Rights Reserved Reading location - IP/workstation name: [email or web address]
--- NOTE | 2020-05-09 12:55 | Progress Note ---
Provider Note Provider Note: Patient seen and evaluated by me today. Patient admitted late this morning by Dr. Humphries overnight. See H&P for full evaluation of the admission. Blood sugar significantly elevated as well as triglycerides. Suspect he may have some underlying familial hypertriglyceridemia which will need follow-up likely with an trucking contractor outpatient. Added low-dose Lantus for better blood sugar control.
[2020-05-09] MEDS ORDERED: INSULIN GLARGINE,HUM.REC.ANLOG 1,000 UNIT/10 ML VIAL (PYX) SUBCUT ONE (13:30)
--- NOTE | 2020-05-09 14:31 | RADIOLOGY REPORT (SQ) ---
EXAM DESCRIPTION: CAROTID DOPPLER IMAGES COMPLETED DATE/TIME: 05/09/2020 1:32 pm REASON FOR STUDY: tia COMPARISON: None. TECHNIQUE: Grayscale ultrasound, Doppler velocity and spectra, and color Doppler images acquired of the extra-cranial carotid and vertebral arteries. Images stored on PACS. LIMITATIONS: None. FINDINGS: RIGHT CAROTID CCA Velocities: Within normal limits. ICA Velocities Peak systolic 0.75 m/s. End diastolic 0.24 m/s. Proximal ICA/CCA peak systolic ratio 1.5. Spectra normal. No significant plaque. LEFT CAROTID CCA Velocities: Within normal limits. ICA Velocities Peak systolic 0.44 m/s. End diastolic 0.17 m/s. Proximal ICA/CCA peak systolic ratio 0.6. Spectra normal. No significant plaque. VERTEBRAL ARTERIES: Antegrade flow. Normal waveforms. SUBCLAVIAN ARTERIES: Not imaged. OTHER: No other significant finding. IMPRESSION: NO HEMODYNAMICALLY SIGNIFICANT STENOSIS. COMMENT: Quality ID #[id number]: Velocity criteria are extrapolated from the diameter data as defined by t he Society of Radiologists in Ultrasound Consensus Conference. Radiology 2003: 229; 340-346. TECHNICAL DOCUMENTATION: JOB ID: [id number] 2010 [employer]- All Rights Reserved Reading location - IP/workstation name: [email or web address]
--- NOTE | 2020-05-09 18:04 | EKG REPORT ---
SEVERITY:- ABNORMAL ECG - SINUS RHYTHM BORDERLINE INFERIOR Q WAVES NONSPECIFIC T ABNORMALITIES, INFERIOR LEADS : Confirmed by: Bhavna Dunham MD 09-May-2020 18:02:07
[2020-05-09] MEDS: ATORVASTATIN CALCIUM 40 MG TABLET PO SCH (21:37)
[2020-05-10] MEDS: HEPARIN SOD (PORCINE) 5,000 UNIT/ML 1 ML VIAL SUBCUT SCH ×3 (05:20→21:33)
[2020-05-10] MEDS: NORMAL SALINE 1000 ML 1,000 ML IV PRN (05:20)
[2020-05-10 07:00] LABS: ANION GAP 8 (5-19); BLOOD UREA NITROGEN 4 mg/dL (7-20); CALCIUM 8.2 mg/dL (8.4-10.2); CARBON DIOXIDE 20 mmol/L (22-30); CHLORIDE 106 mmol/L (98-107); GLUCOSE 246 mg/dL (75-110); POTASSIUM 3.9 mmol/L (3.6-5.0)
[2020-05-10 07:03] LABS: HEMATOCRIT 35.1 % (36.0-47.0); MEAN CORPUSCULAR VOLUME 82 fl (80-97); PLATELET COUNT 188 10^3/uL (150-450); RED BLOOD COUNT 4.26 10^6/uL (3.72-5.28); RED CELL DISTRIBUTION WIDTH 14.5 % (11.5-14.0); WHITE BLOOD COUNT 7.8 10^3/uL (4.0-10.5)
[2020-05-10 07:38] LABS: HEMOGLOBIN 11.8 g/dL (12.0-15.5)
[2020-05-10 07:39] LABS: MEAN CORPUSCULAR HEMOGLOBIN 27.6 pg (27.0-33.4); MEAN CORPUSCULAR HGB CONC 33.6 g/dL (32.0-36.0)
[2020-05-10] MEDS: INSULIN LISPRO 100 UNIT/ML 3 ML VIAL SUBCUT SCH ×4 (08:30→21:29)
[2020-05-10] MEDS ORDERED: INSULIN GLARGINE,HUM.REC.ANLOG 1,000 UNIT/10 ML VIAL SUBCUT SCH ×2 (10:00)
[2020-05-10] MEDS: ASPIRIN 81 MG TABLET, CHEWABLE PO SCH (10:31)
--- NOTE | 2020-05-10 18:46 | PDOC PROGRESS REPORT ---
Subjective Progress Note for:: 05/10/20 Subjective:: Patient mated for TIA and hypertensive urgency. Blood pressure much better controlled, blood sugars still uncontrolled and I have increased her Lantus today again. Echocardiogram has been done but has not been read yet we would need these results to discharge her home safely. Patient has no new complaints and agrees with the plan. Reason For Visit: TIA,HYPERTENSIVE URGENCY,UNCONTROLLED DIABETES Physical Exam Vital Signs: Temp Pulse Resp BP Pulse Ox 98.1 F 79 20 137/81 H 99 05/10/20 15:20 05/10/20 16:00 05/10/20 16:00 05/10/20 16:00 05/10/20 16:00 Intake & Output 05/09/20 05/10/20 05/11/20 06:59 06:59 06:59 Intake Total 1000 3040 1600 Output Total 200 1200 Balance 800 1840 1600 Weight 65.2 kg 74.4 kg General appearance: PRESENT: no acute distress, well-developed, well-nourished Head exam: PRESENT: atraumatic - Sugars, normocephalic Eye exam: PRESENT: conjunctiva pink Mouth exam: PRESENT: moist Respiratory exam: PRESENT: clear to auscultation bri. ABSENT: rales, rhonchi, wheezes Cardiovascular exam: PRESENT: RRR. ABSENT: diastolic murmur, rubs, systolic murmur GI/Abdominal exam: PRESENT: normal bowel sounds, soft. ABSENT: distended, guarding, mass, organolmegaly, rebound, tenderness Neurological exam: PRESENT: alert, awake, oriented to person, oriented to place, oriented to time, oriented to situation Psychiatric exam: PRESENT: appropriate affect, normal mood Skin exam: PRESENT: dry, intact, warm Results Laboratory Results: 05/10/20 06:09 05/10/20 06:09 05/10/20 05/10/20 06:09 06:09 WBC 7.8 RBC 4.26 Hgb 11.8 L Hct 35.1 L MCV 82 MCH 27.6 MCHC 33.6 RDW 14.5 H Plt Count 188 Sodium 133.7 L Potassium 3.9 Chloride 106 Carbon Dioxide 20 L Anion Gap 8 BUN 4 L Creatinine 0.53 Est GFR ( Amer) > 60 Glucose 246 H Calcium 8.2 L 05/08/20 05/08/20 05/09/20 23:25 23:25 00:04 Creatine Kinase Cancelled 65 CK-MB (CK-2) Cancelled Troponin I Cancelled 05/09/20 00:04 Creatine Kinase CK-MB (CK-2) 0.58 Troponin I 0.022 Impressions: Chest X-Ray 05/08/20 23:08 IMPRESSION: No evidence of active intrathoracic disease. Head CT 05/08/20 23:08 IMPRESSION: 1. No acute intracranial findings. 2. 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 Carotid Doppler Study 05/09/20 00:00 IMPRESSION: NO HEMODYNAMICALLY SIGNIFICANT STENOSIS. Head MRI 05/09/20 00:00 IMPRESSION: Chronic ischemic changes. EVIDENCE OF ACUTE STROKE: NO. Assessment and Plan - Diagnosis (1) TIA (transient ischemic attack) Is this a current diagnosis for this admission?: Yes Plan: Prior stroke on CT. Every day smoker. DIabetic. She is hypertensive. No acute findings on MRI of the head and a carotid Doppler. Echocardiogram pending (2) Hypertensive urgency Is this a current diagnosis for this admission?: Yes Plan: Blood pressure has improved Continue medications. (3) COPD (chronic obstructive pulmonary disease) Qualifiers: COPD type: emphysema Emphysema type: unspecified Qualified Code(s): J43.9 - Emphysema, unspecified Is this a current diagnosis for this admission?: Yes (4) GERD (gastroesophageal reflux disease) Qualifiers: Esophagitis presence: without esophagitis Qualified Code(s): K21.9 - Gastro-esophageal reflux disease without esophagitis Is this a current diagnosis for this admission?: Yes (5) HLD (hyperlipidemia) Qualifiers: Hyperlipidemia type: mixed hyperlipidemia Qualified Code(s): E78.2 - Mixed hyperlipidemia Is this a current diagnosis for this admission?: Yes (6) Type 2 diabetes mellitus with hyperglycemia, with long-term current use of insulin Is this a current diagnosis for this admission?: Yes Plan: Uncontrolled diabetes Gradually increase Lantus multiple times during admission Accu-[place], SSI - Time Time Spent with patient: 15-24 minutes Anticipated Discharge Disposition: Home, Self Care Anticipated Discharge Timeframe: within 24 hours - Inpatient Certification Post Hospital Care: Other - Likely discharge tomorrow after echocardiogram is read
[2020-05-10] MEDS ORDERED: NICOTINE 21 MG/24 HR PATCH.TD24 TD PRN (19:45)
[2020-05-10] MEDS ORDERED: ACETAMINOPHEN 325 MG TABLET PO PRN (20:44)
[2020-05-10] MEDS: ATORVASTATIN CALCIUM 40 MG TABLET PO SCH (21:30)
--- NOTE | 2020-05-11 00:49 | XCELERA REPORT ---
[address] [address] Transthoracic Echocardiogram Report Name: NISSA TUTTLE Age: 54 yrs Gender: Female : 1965 Patient Status: Inpatient Patient Location: [address] [place] [address] Study Date: 05/10/2020 01:39 PM Height: 64 in Weight: 164 lb BSA: 1.8 m2 Procedure: A two-dimensional transthoracic echocardiogram with color flow and Doppler was performed. Study Quality: Fair. Reason For Study: TIA History: TIA. Ordering Physician: MARÍA ROBISON Performed By: Gwen Cochran Interpretation Summary The left ventricle is normal in size. There is normal left ventricular wall thickness. LV EF is 65% Left ventricular systolic function is normal. Doppler measurements suggest normal left ventricular diastolic function The left ventricular wall motion is normal. There is no thrombus. No ASD ,VSD , or PFO seen. The right ventricle is grossly normal size. The right ventricle is not well visualized secondary to technical limitations The right atrium is normal. The left atrial size is normal. There is no evidence of mitral valve prolapse. There is no vegetation seen on the mitral valve. There is no mitral valve stenosis. There is a trace amount of mitral regurgitation There is no aortic valvular vegetation. There is no aortic valve stenosis There is no LVOT obstruction. No aortic regurgitation is present. There is no tricuspid stenosis. There is a trace amount of tricuspid regurgitation Tricuspid regurgitation jet envelope not well defined to measure RV systolic pressure accurately. There is no pulmonic valvular stenosis. There is no pulmonic valvular regurgitation. The aortic root is not well visualized but is probably normal size. The inferior vena cava appeared normal and decreased > 50% with respiration (RAP 5-10 mmHg) There is no pericardial effusion. MMode/2D Measurements & Calculations RVDd: 2.8 cm LVIDd: 4.6 cm FS: 43.1 % Ao root diam: 2.9 cm IVSd: 0.87 cm LVIDs: 2.6 cm EDV(Teich): 95.6 ml Ao root area: 6.8 cm2 LVPWd: 0.86 cm ESV(Teich): 24.5 ml EF(Teich): 74.4 % LVOT diam: 1.5 cm LVOT area: 1.9 cm2 Doppler Measurements & Calculations MV E max harley: MV dec slope: Ao V2 max: LV V1 max P.4 cm/sec 557.2 cm/sec2 222.9 cm/sec 3.5 mmHg MV A max harley: MV dec time: 0.19 secAo max PG: LV V1 mean P.5 cm/sec 19.9 mmHg 1.7 mmHg MV E/A: 1.2 Ao V2 mean: LV V1 max: 163.5 cm/sec 93.9 cm/sec Ao mean PG: LV V1 mean: 11.8 mmHg 58.4 cm/sec Ao V2 VTI: 50.4 cm LV V1 VTI: GIN(I,D): 0.95 cm2 25.8 cm GIN(V,D): 0.78 cm2 SV(LVOT): 47.7 ml PA V2 max: 79.2 cm/sec PA max P.5 mmHg Left Ventricle The left ventricle is normal in size. There is normal left ventricular wall thickness. LV EF is 65%. Left ventricular systolic function is normal. Doppler measurements suggest normal left ventricular diastolic function. The left ventricular wall motion is normal. There is no thrombus. No ASD ,VSD , or PFO seen. Right Ventricle The right ventricle is grossly normal size. The right ventricle is not well visualized secondary to technical limitations. Atria The right atrium is normal. The left atrial size is normal. Mitral Valve There is no evidence of mitral valve prolapse. There is no vegetation seen on the mitral valve. There is no mitral valve stenosis. There is a trace amount of mitral regurgitation. Aortic Valve There is no aortic valvular vegetation. There is no aortic valve stenosis. There is no LVOT obstruction. No aortic regurgitation is present. Tricuspid Valve There is no tricuspid stenosis. There is a trace amount of tricuspid regurgitation. Tricuspid regurgitation jet envelope not well defined to measure RV systolic pressure accurately. Pulmonic Valve There is no pulmonic valvular stenosis. There is no pulmonic valvular regurgitation. Great Vessels The aortic root is not well visualized but is probably normal size. The inferior vena cava appeared normal and decreased > 50% with respiration (RAP 5-10 mmHg). Effusions There is no pericardial effusion. : MARÍA ROBISON Lakshmi
[2020-05-11] MEDS: HEPARIN SOD (PORCINE) 5,000 UNIT/ML 1 ML VIAL SUBCUT SCH (05:27)
[2020-05-11] MEDS ORDERED: ONDANSETRON HCL INJ/PF 4 MG/2 ML SDV ONE (06:33)
[2020-05-11] MEDS ORDERED: ONDANSETRON HCL INJ/PF 4 MG/2 ML SDV IV PRN (06:43)
[2020-05-11] MEDS: INSULIN LISPRO 100 UNIT/ML 3 ML VIAL SUBCUT SCH ×2 (07:52→12:06)
--- NOTE | 2020-05-11 08:24 | EKG REPORT ---
SEVERITY:- BORDERLINE ECG - SINUS RHYTHM BORDERLINE INFERIOR Q WAVES BORDERLINE T ABNORMALITIES, INFERIOR LEADS : Confirmed by: Bhavna Dunham MD 11-May-2020 08:22:38
[2020-05-11] MEDS: ASPIRIN 81 MG TABLET, CHEWABLE PO SCH (09:40)
[2020-05-11] MEDS ORDERED: LISINOPRIL 10 MG TABLET PO SCH (10:00)
[2020-05-11] MEDS ORDERED: INSULIN GLARGINE,HUM.REC.ANLOG 1,000 UNIT/10 ML VIAL SUBCUT SCH (10:00)
--- NOTE | 2020-05-11 10:34 | RADIOLOGY REPORT (SQ) ---
EXAM DESCRIPTION: CT HEAD WITHOUT IMAGES COMPLETED DATE/TIME: 05/11/2020 10:19 am REASON FOR STUDY: stroke I10 ESSENTIAL (PRIMARY) HYPERTENSION G46.4 CEREBELLAR STROKE SYNDROME COMPARISON: 05/08/2020. TECHNIQUE: Axial images acquired through the brain without intravenous contrast. Images reviewed wi th bone, brain and subdural windows. Additional sagittal and coronal reconstructions were generated. Images stored on PACS. All CT scanners at this facility use dose modulation, iterative reconstruction, and/or weight based d osing when appropriate to reduce radiation dose to as low as reasonably achievable (ALARA). [facility]: Dose Right [facility]: CareDose [facility]: Dose Right [facility]: Teradose 4D [facility]: Smart CORD:USE Cord Blood Bank RADIATION DOSE: CT Rad equipment meets quality standard of care and radiation dose reduction techniq ues were employed. CTDIvol: 53.2 mGy. DLP: 991 mGy-cm. mGy. LIMITATIONS: None. FINDINGS: VENTRICLES: Normal size and contour. CEREBRUM: No masses. No hemorrhage. No midline shift. Old right occipital lobe infarct. No eviden ce for acute infarction. Normal marroquin/white matter differentiation. No areas of low density in the whi te matter. CEREBELLUM: No masses. No hemorrhage. No alteration of density. No evidence for acute infarction. EXTRAAXIAL SPACES: No fluid collections. No masses. ORBITS AND GLOBE: No intra- or extraconal masses. Normal contour of globe without masses. CALVARIUM: No fracture. PARANASAL SINUSES: No fluid or mucosal thickening. SOFT TISSUES: No mass or hematoma. OTHER: No other significant finding. IMPRESSION: STABLE APPEARANCE. OLD RIGHT OCCIPITAL LOBE INFARCT. NO APPARENT ACUTE FINDINGS. EVIDENCE OF ACUTE STROKE: NO. COMMENT: Quality ID # [id number]: Final reports with documentation of one or more dose reduction techniques (e.g., Automated exposure control, adjustment of the mA and/or kV according to patient size, use of iterative reconstruction technique) TECHNICAL DOCUMENTATION: JOB ID: [id number] 2010 [employer]- All Rights Reserved Reading location - IP/workstation name: [email or web address]
[2020-05-11 11:58] VITALS: BP 144/94
--- NOTE | 2020-05-11 12:12 | PDOC DISCHARGE SUMMARY ---
Impression - Admit/DC Date/PCP Admission Date/Primary Care Provider: 05/09/20 03:27 Discharge Date: 05/11/20 - Assessment Summary: (1) TIA (transient ischemic attack) Is this a current diagnosis for this admission?: Yes Plan: Prior stroke on CT. Every day smoker. DIabetic. She is hypertensive. No acute findings on MRI of the head and a carotid Doppler. Echocardiogram pending 05/11/2020-patient admitted with syncope and orthostatic hypotension symptoms resolved. CT head was done negative MRI of the brain was negative. Repeat CT again done today which was negative for acute pathology. Echocardiogram was done LV function is normal EF is 65%. No PFO is noted. If the symptoms recur like numbness or weakness she was advised to come to the emergency room [facility]. (2) Hypertensive urgency Is this a current diagnosis for this admission?: Yes Plan: Blood pressure has improved Continue medications. 05/11/2020-blood pressure today is 136/70. Patient was given a prescription for lisinopril 10 mg p.o. twice daily. Advised to follow-up with PCP next 3 to 5 days. (3) COPD (chronic obstructive pulmonary disease) Qualifiers: COPD type: emphysema Emphysema type: unspecified Qualified Code(s): J43.9 - Emphysema, unspecified Is this a current diagnosis for this admission?: Yes 05/11/2020-pulse ox today's 100% on room air. Patient does not need oxygen at home. (4) GERD (gastroesophageal reflux disease) Qualifiers: Esophagitis presence: without esophagitis Qualified Code(s): K21.9 - Gastro -esophageal reflux disease without esophagitis Is this a current diagnosis for this admission?: Yes (5) HLD (hyperlipidemia) Qualifiers: Hyperlipidemia type: mixed hyperlipidemia Qualified Code(s): E78.2 - Mixed hyperlipidemia Is this a current diagnosis for this admission?: Yes (6) Type 2 diabetes mellitus with hyperglycemia, with long-term current use of insulin Is this a current diagnosis for this admission?: Yes Plan: Uncontrolled diabetes Gradually increase Lantus multiple times during admission DeborahuANGEL Chung 05/11/2020-patient latest blood sugar is 205. Patient was given a prescription for insulin sliding scale, Lantus. Advised to continue her metformin at home. - Time Time Spent with patient: 15-24 minutes Anticipated Discharge Disposition: Home, Self Care Anticipated Discharge Timeframe: within 24 hours - Inpatient Certification Post Hospital Care: Other - Likely discharge tomorrow after echocardiogram is read - Additional Information Discharge Diet: Diabetic Discharge Activity: Activity As Tolerated Prescriptions: Aspirin [Aspirin 81 mg Chewable Tablet] 81 mg PO DAILY 30 Days #30 tab.chew Insulin Lispro [Humalog Insulin (Lispro) 100 unit/mL] 0 - 12 unit SUBCUT ACHS 30 Days #1 vial Insulin Glargine,Hum.rec.anlog [Lantus Insulin 100 Unit/1 ml 10 ml] 18 unit SUBCUT DAILY 30 Days #2 vial Atorvastatin Calcium [Lipitor 40 mg Tablet] 40 mg PO QHS 30 Days #30 tablet Lisinopril [Prinivil 10 mg Tablet] 10 mg PO DAILY 30 Days #30 tablet Home Medications: Metformin HCl 500 mg PO BID 05/09/20 Aspirin [Aspirin 81 mg Chewable Tablet] 81 mg PO DAILY 30 Days #30 tab.chew 05/11/20 Atorvastatin Calcium [Lipitor 40 mg Tablet] 40 mg PO QHS 30 Days #30 tablet 05/11/20 Insulin Glargine,Hum.rec.anlog [Lantus Insulin 100 Unit/1 ml 10 ml] 18 unit SUBCUT DAILY 30 Days #2 vial 05/11/20 Insulin Lispro [Humalog Insulin (Lispro) 100 unit/mL] 0 - 12 unit SUBCUT ACHS 30 Days #1 vial 05/11/20 Lisinopril [Prinivil 10 mg Tablet] 10 mg PO DAILY 30 Days #30 tablet 05/11/20 History of Present Illiness History of Present Illness: NISSA TUTTLE is a 54 year old female 54 year old female with a past medical history of diabetes and is a current every day smoker who said she moved here from [place] a year ago and has not gotten a primary care provider and has not had any medications for any of her conditions since that time. Around 2200 last night she had an episode of right arm numbness and weakness that lasted approximately 20 minutes and then spontaneously resolved. She said that she had had a "mini stroke" before and so she decided to come get checked out. She was hypertensive, primarily diastolic hypertension with 1 diastolic pressure recorded at 107. Her blood sugar was also in the 400s. Head CT did not show an acute stroke but it did show evidence of a prior stroke. Hospital Course Hospital Course: 54 year old female with a past medical history of diabetes and is a current every day smoker who said she moved here from [place] a year ago and has not gotten a primary care provider and has not had any medications for any of her co nditions since that time. Around 2200 last night she had an episode of right arm numbness and weakness that lasted approximately 20 minutes and then spontaneously resolved. She said that she had had a "mini stroke" before and so she decided to come get checked out. She was hypertensive, primarily diastolic hypertension with 1 diastolic pressure recorded at 107. Her blood sugar was also in the 400s. Head CT did not show an acute stroke but it did show evidence of a prior stroke. 05/10-Patient mated for TIA and hypertensive urgency. Blood pressure much better controlled, blood sugars still uncontrolled and I have increased her Lantus today again. Echocardiogram has been done but has not been read yet we would need these results to discharge her home safely. Patient has no new complaints and agrees with the plan. 05/11/2020-CT head is negative MRI of the brain is negative during the hospital stay. Blood pressures are well controlled latest blood pressure is 136/70. Patient agreed to go home today. Later on nurse called me and told me patient is complaining of right hand numbness, right facial droop. Stat CT head was done, no acute pathology seen. It shows old occipital infarct. Plan is to cancel the discharge and to monitor the neurological status for the next 24 hours but the patient prefers to go home today. Nursing and me tried to explain the reasons to keep her overnight and requested her to stay but she prefers to go home and understood the concerns expressed by us Physical Exam Vital Signs: Temp Pulse Resp BP Pulse Ox 98.0 F 107 H 16 144/94 H 99 05/11/20 11:54 05/11/20 11:54 05/11/20 11:54 05/11/20 11:54 05/11/20 11:54 Intake & Output 05/10/20 05/11/20 05/12/20 06:59 06:59 06:59 Intake Total 3040 2120 Output Total 1200 1300 Balance 1840 820 Weight 74.4 kg 63.8 kg General appearance: PRESENT: no acute distress, well-developed Head exam: PRESENT: atraumatic Eye exam: PRESENT: PERRLA Ear exam: PRESENT: normal external ear exam Teeth exam: PRESENT: poor dentation Neck exam: ABSENT: carotid bruit, JVD, lymphadenopathy, thyromegaly Respiratory exam: PRESENT: decreased breath sounds Cardiovascular exam: PRESENT: RRR. ABSENT: diastolic murmur, rubs, systolic murmur Pulses: PRESENT: normal dorsalis pedis pul GI/Abdominal exam: PRESENT: normal bowel sounds, soft. ABSENT: distended, guarding, mass, organolmegaly, rebound, tenderness Rectal exam: PRESENT: deferred Extremities exam: PRESENT: full ROM. ABSENT: calf tenderness, clubbing, pedal edema Neurological exam: PRESENT: alert, awake, oriented to person, oriented to place, oriented to time, oriented to situation, CN II-XII grossly intact. ABSENT: motor sensory deficit Psychiatric exam: PRESENT: appropriate affect, normal mood. ABSENT: homicidal ideation, suicidal ideation Results Laboratory Results: WBC 7.8 10^3/uL (4.0-10.5) 05/10/20 06:09 RBC 4.26 10^6/uL (3.72-5.28) 05/10/20 06:09 Hgb 11.8 g/dL (12.0-15.5) L 05/10/20 06:09 Hct 35.1 % (36.0-47.0) L 05/10/20 06:09 MCV 82 fl (80-97) 05/10/20 06:09 MCH 27.6 pg (27.0-33.4) 05/10/20 06:09 MCHC 33.6 g/dL (32.0-36.0) 05/10/20 06:09 RDW 14.5 % (11.5-14.0) H 05/10/20 06:09 Plt Count 188 10^3/uL (150-450) 05/10/20 06:09 Lymph % (Auto) Not Reportable 05/09/20 00:04 Hyde % (Auto) Not Reportable 05/09/20 00:04 Eos % (Auto) Not Reportable 05/09/20 00:04 Baso % (Auto) Not Reportable 05/09/20 00:04 Absolute Neuts (auto) Not Reportable 05/09/20 00:04 Absolute Lymphs (auto) Not Reportable 05/09/20 00:04 Absolute Monos (auto) Not Reportable 05/09/20 00:04 Absolute Eos (auto) Not Reportable 05/09/20 00:04 Absolute Basos (auto) Not Reportable 05/09/20 00:04 Total Counted 100 05/09/20 00:04 Seg Neutrophils % Not Reportable 05/09/20 00:04 Seg Neuts % (Manual) 56 % (42-78) 05/09/20 00:04 Band Neutrophils % 1 % (3-5) L 05/09/20 00:04 Lymphocytes % (Manual) 31 % (13-45) 05/09/20 00:04 Monocytes % (Manual) 5 % (3-13) 05/09/20 00:04 Eosinophils % (Manual) 6 % (0-6) 05/09/20 00:04 Basophils % (Manual) 1 % (0-2) 05/09/20 00:04 Abs Neuts (Manual) 5.1 10^3/uL (1.7-8.2) 05/09/20 00:04 Abs Lymphs (Manual) 2.8 10^3/uL (0.5-4.7) 05/09/20 00:04 Abs Monocytes (Manual) 0.5 10^3/uL (0.1-1.4) 05/09/20 00:04 Absolute Eos (Manual) 0.5 10^3/uL (0.0-0.6) 05/09/20 00:04 Abs Basophils (Manual) 0.1 10^3/uL (0.0-0.2) 05/09/20 00:04 Toxic Granulation SLIGHT 05/09/20 00:04 Platelet Estimate Cancelled 05/08/20 23:25 Platelet Comment ADEQUATE 05/09/20 00:04 RBC Morph Comment NORMO-CYTIC/CHROMIC 05/09/20 00:04 PT 12.3 SEC (11.4-15.4) 05/08/20 23:25 INR 0.91 05/08/20 23:25 APTT 32.2 SEC (23.5-35.8) 05/08/20 23:25 Sodium 133.7 mmol/L (137-145) L 05/10/20 06:09 Potassium 3.9 mmol/L (3.6-5.0) 05/10/20 06:09 Chloride 106 mmol/L (98-107) 05/10/20 06:09 Carbon Dioxide 20 mmol/L (22-30) L 05/10/20 06:09 Anion Gap 8 (5-19) 05/10/20 06:09 BUN 4 mg/dL (7-20) L 05/10/20 06:09 Creatinine 0.53 mg/dL (0.52-1.25) 05/10/20 06:09 Est GFR ( Amer) > 60 (>60) 05/10/20 06:09 Est GFR (Non-Af Amer) Cancelled 05/08/20 23:25 Est GFR (MDRD) Non-Af > 60 (>60) 05/10/20 06:09 Glucose 246 mg/dL (75-110) H 05/10/20 06:09 POC Glucose 284 mg/dL (70-110) H 05/11/20 11:11 Calcium 8.2 mg/dL (8.4-10.2) L 05/10/20 06:09 Total Bilirubin 1.7 mg/dL (0.2-1.3) H 05/09/20 00:04 Direct Bilirubin 1.0 mg/dL (0.0-0.4) H 05/09/20 00:04 Neonat Total Bilirubin Not Reportable 05/09/20 00:04 Neonat Direct Bilirubin Not Reportable 05/09/20 00:04 Neonat Indirect Bili Not Reportable 05/09/20 00:04 AST 50 U/L (14-36) H 05/09/20 00:04 ALT 20 U/L (<35) 05/09/20 00:04 Alkaline Phosphatase 163 U/L (38-126) H 05/09/20 00:04 Creatine Kinase 65 U/L (30-135) 05/09/20 00:04 CK-MB (CK-2) 0.58 ng/mL (<4.55) 05/09/20 00:04 Troponin I 0.022 ng/mL 05/09/20 00:04 Total Protein 7.5 g/dL (6.3-8.2) 05/09/20 00:04 Albumin 3.9 g/dL (3.5-5.0) 05/09/20 00:04 Triglycerides 7356 mg/dL (<150) H 05/09/20 00:04 Cholesterol 511.27 mg/dL (0-200) H 05/09/20 00:04 LDL Cholesterol Direct 136 mg/dL (<100) H 05/09/20 00:04 VLDL Cholesterol, Calc UNABLE TO CALCULATE 05/09/20 00:04 HDL Cholesterol 16 mg/dL (>40) L 05/09/20 00:04 EGFR Cancelled 05/08/20 23:25 Slides for Path Review Cancelled 05/08/20 23:25 05/08/20 05/09/20 23:25 00:04 CK-MB (CK-2) Cancelled 0.58 Troponin I Cancelled 0.022 Impressions: Chest X-Ray 05/08/20 23:08 IMPRESSION: No evidence of active intrathoracic disease. Head CT 05/08/20 23:08 IMPRESSION: 1. No acute intracranial findings. 2. 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 Carotid Doppler Study 05/09/20 00:00 IMPRESSION: NO HEMODYNAMICALLY SIGNIFICANT STENOSIS. Head MRI 05/09/20 00:00 IMPRESSION: Chronic ischemic changes. EVIDENCE OF ACUTE STROKE: NO. Head CT 05/11/20 00:00 IMPRESSION: STABLE APPEARANCE. OLD RIGHT OCCIPITAL LOBE INFARCT. NO APPARENT ACUTE FINDINGS. EVIDENCE OF ACUTE STROKE: NO. Plan Time Spent: Greater than 30 Minutes Stroke Is this a Stroke Patient?: No Acute Heart Failure - Is this a Heart Failure Patient?: No
== END 2020-05-11 12:46 | disposition home or self-care (01) ==
LOC: ER 23:06 → INTOOBSV 05-09 03:27 → EH 05-09 03:27 → 3S 05-09 06:07
PROVIDERS: ADMIT Family Medicine; ATTEND Internal Medicine
DX: G45.9 Transient cerebral ischemic attack, unspecified (principal); I10 Essential (primary) hypertension; F17.200 Nicotine dependence, unspecified, uncomplicated; I95.1 Orthostatic hypotension; J44.9 Chronic obstructive pulmonary disease, unspecified; K21.9 Gastro-esophageal reflux disease without esophagitis; E78.2 Mixed hyperlipidemia; E11.65 Type 2 diabetes mellitus with hyperglycemia; Z86.73 Personal history of transient ischemic attack (TIA), and cerebral infarction without residual deficits; Z79.82 Long term (current) use of aspirin; Z79.4 Long term (current) use of insulin; Z79.899 Other long term (current) drug therapy; Z85.41 Personal history of malignant neoplasm of cervix uteri; F31.9 Bipolar disorder, unspecified; F43.10 Post-traumatic stress disorder, unspecified; Z83.3 Family history of diabetes mellitus; Z80.9 Family history of malignant neoplasm, unspecified; Z82.49 Family history of ischemic heart disease and other diseases of the circulatory system; Z88.8 Allergy status to other drugs, medicaments and biological substances; E66.01 Morbid (severe) obesity due to excess calories; Z91.19 Patient's noncompliance with other medical treatment and regimen; R20.0 Anesthesia of skin; F19.10 Other psychoactive substance abuse, uncomplicated; R53.1 Weakness
CPT/HCPCS: 93005 ×2; 99285; 96360; 36415 ×3; 82553; 82962 ×4; 82550; 85025; 85027; 85610; 85730; 80048; 80053; 84484; 80061; 93306; 93880; 70551; 71045; 70450 ×2; 93010 ×2; G0378 ×3; A9270 ×14; J1644 ×3; J2405; J7030 ×2; J1815